=== PATIENT | female | born 1950 | race Caucasian/White ===

== ENCOUNTER → 2017-11-17 14:34 | Outpatient (CLI) | payer MEDICARE, BC, SELFPAY ==
--- NOTE | 2017-11-17 14:36 | XR_ITS ---
DEXA SCAN.-BONE DENSITY STUDY HIPS AND LUMBAR SPINE HISTORY: Postmenopausal female 67-year-old postmenopausal female. Height loss. Low calcium intake. Has an taking Premarin at some point.. TECHNIQUE: DEXA scan hip and lumbar spine The most complete data summary and color graphic presentation of the today's ( and any prior ) DEXA findings are available in PACS. Definition and treatment guidelines included. COMPARISON: September 2016 LUMBAR SPINE: L2 vertebral body demonstrates the lowest T score -2.1 with BMD0.945 g/cm sq = osteopenia Overall mean lumbar L1-L4 T score -1.7 with BMD0.974 g/cm sq =. Osteopenia 2017 DEXA comparison. Thus when comparing today's study to the prior exam there's been a scant 0.2% increasing mean bone density at the lumbar spine.... Which is less than the anticipated bone loss over each year. HIPS: Femoral neck density is best predictor of hip fracture risk . Both demonstrates the -2.1 T score below the with BMD0.933 g/cm sq . Average all regions yields today's with today's Hip Mean T score -1.5 with BMD0.821 g/cm sq . 2017 DEXA overall hip T score -1.7 with mean BMD0.798 g/cm sq Thus this reflects a 2.9% increasedin overall mean bone density at the hips in the interval. IMPRESSION------- 1. LUMBAR SPINE: \Overall Osteopenia at the lumbar spine. With overall T score = -1.7. Lowest density L2 vertebra with T score = -2.1 2. HIPS: Overall osteopenia at hips with overall T score -1.7 More pronounced osteopenia at both right and left femoral neck with a T score = -2.1 bilateral WHO criteria for post-menopausal, Women: Normal: T-score at or above -1 SD Osteopenia: T-score between -1 and -2.5 SD Osteoporosis: T-score at or below -2.5 SD
--- NOTE | 2017-11-17 14:36 | MM_ITS ---
MM Dig screening mamm BI w/CAD ORDERING PHYSICIAN : Iban Thompson MD PATIENT AGE: 67 years GENDER: Female HISTORY Has taken female hormones over the past year. No new complaints noncontributory family history. INDICATION: ITS.REASON: SCREENING XMG COMPARISON: September 1999 09 Sep 1999 August TECHNIQUE: Standard CC and MLO images were obtained. R2 CAD reviewed. FINDINGS: Lower density breast with generalized fatty replacement. Minimal residual fibroglandular elements most evident at the right breast anteriorly. No dominant mass nor suspicious calcifications either breast . Mild asymmetry is again seen but no new findings. RIGHT BREAST:We again see some minimal residual fibroglandular elements extending through the lateral retroareolar region. These features evident long-standing features seem to be slightly more evident on some images and others due to technique but I do not but is been any significant change overall. LEFT BREAST:Stable left breast follow-up in one year IMPRESSION: Stable mammogram no new areas of concern . Bilateral follow-up in one year recommended. BI-RADS Category: 1 Negative RECOMMENDED FOLLOW-UP: 1YR 1 YEAR FOLLOW-UP (A letter has been sent to the patient regarding results of the study.)
== END ==
PROVIDERS: Family Provider Family Medicine Addiction Medicine; PCP Obstetrics & Gynecology; Visit Provider Obstetrics & Gynecology
DX: Z12.31 Encounter for screening mammogram for malignant neoplasm of breast (principal); Z78.0 Asymptomatic menopausal state
CPT/HCPCS: 77067; 77080

== ENCOUNTER → 2018-11-20 09:24 | Outpatient (CLI) | payer MEDICARE, BC, SELFPAY ==
--- NOTE | 2018-11-20 09:37 | MM_ITS ---
MM Dig screening mamm BI w/CAD CAD Screening COMPARISON: Digital mammograms with CAD 11/17/2017 and 09/28/2016 INDICATION: There is no personal or family history of breast cancer TECHNIQUE: Standard CC and MLO images were obtained. R2 CAD reviewed. FINDINGS: The breasts are composed primarily of fat with minimal scattered fibroglandular densities throughout each breast. There are few benign-appearing calcifications in each breast. There is no suspicious lesion and there are no suspicious microcalcifications. IMPRESSION: Fibrofatty parenchyma with no suspicious lesion seen BI-RADS Category: 2 Benign Finding(s) RECOMMENDED FOLLOW-UP: 1YR - 1 YEAR FOLLOW-UP (A letter has been sent to the patient regarding results of the study.)
--- NOTE | 2018-11-20 09:37 | XR_ITS ---
XR DEXA axial skeleton HISTORY: ITS.REASON: SCREENING ORDERING PHYSICIAN: Iban Thompson MD PATIENT AGE: 68 years COMPARISON: 11/17/2017 FINDINGS: The BMD measured at the left femoral neck is 0.734 g/cm squared with a T score of -2.2. This is considered Osteopenic according to the World Health Organization criteria. Fracture risk is Moderate. Treatment is advised. The L1 L4 density has a T score of -1.2 has increased by 6.8%. The density is unchanged IMPRESSION: Osteopenia with moderate fracture risk. Treatment is advised. Suggest follow-up exam in 2 years
== END ==
PROVIDERS: Visit Provider Obstetrics & Gynecology
DX: Z12.31 Encounter for screening mammogram for malignant neoplasm of breast (principal); Z78.0 Asymptomatic menopausal state
CPT/HCPCS: 77067; 77080

== ENCOUNTER → 2019-11-23 07:47 | Outpatient (CLI) | payer MEDICARE, BC, SELFPAY ==
--- NOTE | 2019-11-23 07:48 | XR_ITS ---
PROCEDURE: XR DEXA AXIAL SKELETON CLINICAL HISTORY: Dexa Scan- Osteoporosis COMPARISON: DXA Exam from 11/20/2018 FINDINGS: The right hip BMD is 0.669 with a t-score of -1.6. The left hip BMD is 0.634 with a t-score of -1.9. The lumbar spine BMD is 0.824 with a t-score of -2. IMPRESSION: Osteopenia with moderate fracture risk. Treatment advised. Suggest follow-up exam in 1 year. Previously the lumbar spine T-score is -1.2, left femoral neck -2.2 and right femoral neck -1.5 Dictated by: Conrad Field MD 11/23/2019 10:33 Electronically signed by Conrad Field MD in [place] 11/23/2019 10:33
--- NOTE | 2019-11-23 07:48 | MM_ITS ---
PROCEDURE: MM DIG SCREENING MAMM BI W/CAD DIGITAL BREAST TOMOSYNTHESIS INCLUDED Patient Age:69Y CLINICAL INDICATION: Routine Screening Mammogram COMPARISON: [facility] DIG MAMM-SCREEN JASON W/CAD from 09/28/2016 [facility] MM Dig screening mamm BI w/CAD from 11/17/2017 DIG MAMM-SCREEN JASON from 11/20/2018 TECHNIQUE: Standard CC and MLO images were obtained. R2 CAD reviewed. Bilateral digital breast tomosynthesis included. FINDINGS: IMPRESSION: BI-RAD Category: FOLLOW-UP: (A letter has been sent to the patient regarding results of the study.) Dictated by: Dae Solo MD 11/24/2019 14:31 Electronically signed by Dae Solo MD in [place] 11/26/2019 14:29
== END ==
PROVIDERS: Visit Provider Obstetrics & Gynecology
DX: Z12.31 Encounter for screening mammogram for malignant neoplasm of breast (principal); M81.0 Age-related osteoporosis without current pathological fracture
CPT/HCPCS: 77063; 77067; 77080

== ENCOUNTER → 2020-09-11 08:11 | Outpatient (CLI) | payer MEDICARE, BC, SELFPAY ==
[2020-09-11 08:55] LABS: Basophils % 0.3 % (0.1-2.0); Eosinophils # 0.3 K/mm3 (0.0-0.4); Eosinophils % 3.4 % (0.1-12.0); Hematocrit 41.3 % (37.0-47.0); Hemoglobin 13.4 g/dL (12.2-16.2); Lymphocytes # 2.9 K/mm3 (0.7-4.5); Lymphocytes % 28.7 % (10-50); Mean Corpuscular HGB Conc 32.5 g/dL (31.8-35.4); Mean Corpuscular Hemoglobin 31.4 pg (27.0-31.2); Mean Corpuscular Volume 96.5 fl (81-99); Mean Platelet Volume 7.6 fl (7.4-10.4); Monocytes # 0.5 K/mm3 (0.1-1.0); Monocytes % 5.3 % (1.7-9.3); Neutrophils # 6.2 K/mm3 (1.8-7.8); Neutrophils % 62.2 % (37.0-80.0); Platelet Count 193 K/mm3 (142-424); Red Blood Count 4.28 M/mm3 (4.20-5.40); Red Cell Distribution Width 13.9 % (11.5-17.5); White Blood Count 9.9 K/mm3 (4.8-10.8)
[2020-09-11 09:07] LABS: Hemoglobin A1C 8.2 % (4.0-6.0)
[2020-09-11 09:19] LABS: Alanine Aminotransferase 54 U/L (12-78); Albumin Level 4.3 g/dl (3.5-5.0); Albumin/Globulin Ratio 1.7 (1.1-1.8); Alkaline Phosphatase 105 U/L (38-126); Anion Gap 8.3 mEq/L (5-15); Aspartate Amino Transferase 51 U/L (14-36); Bilirubin,Total 0.5 mg/dl (0.2-1.3); Blood Urea Nitrogen 32 mg/dl (7-17); Calcium 9.5 mg/dl (8.4-10.2); Carbon Dioxide 30 mmol/L (22.0-30.0); Chloride 104 mmol/L (98-107); Cholesterol 194 mg/dl (140-200); Estimated Glomerular Filt Rate 38 ml/min (>60); GFR (African American) 45 ML/MIN (>60); Globulin 2.5 g/dL (1.3-3.2); Glucose 207 mg/dl (74-100); HDL Cholesterol 97 mg/dl (40-60); Potassium 4.3 mmoL/L (3.5-5.1); Sodium 138 mmol/L (136-145); Total Protein,Serum 6.8 g/dl (6.3-8.2); Triglycerides 216 mg/dl (30-150); VLDL Cholesterol 43 mg/dL (0-40)
[2020-09-11 09:29] LABS: Direct LDL Cholesterol 60.56 mg/dL (100-129)
[2020-09-11 09:35] LABS: 25-OH Vitamin D, Total 23.9 ng/mL (30-100)
== END ==
PROVIDERS: Visit Provider Internal Medicine
DX: I10 Essential (primary) hypertension (principal); E78.5 Hyperlipidemia, unspecified; E55.9 Vitamin D deficiency, unspecified; E11.22 Type 2 diabetes mellitus with diabetic chronic kidney disease; Z79.4 Long term (current) use of insulin
CPT/HCPCS: 36415; 80053; 80061; 82306; 83036; 85025

== ENCOUNTER 2021-07-06 04:18 | Emergency (ER) | payer MEDICARE, BC, SELFPAY ==
[2021-07-06] VITALS (7 sets, daily range): BP systolic 109–139; BP diastolic 63–82; PULSE 99–121; RESP 16–20; TEMP 37.1; O2SAT 94–100; BMI 27.4
[2021-07-06 04:32] LABS: POC Glucose,Bedside 328 (70-110)
--- NOTE | 2021-07-06 04:35 | PC.NURSE ---
pt 277blood sugar per ems to their arrival pt is reading 328 on arrival to the ED
--- NOTE | 2021-07-06 04:36 | ECG_ITS ---
APPROVED REPORT Exam: Resting ECG HR:116 bpm ECG Measurements Heart Rate 116 AXES QRSd 91 QRS 23 QT 326 T 66 QTc 395 Conclusion ATRIAL FIBRILLATION WITH RAPID VENTRICULAR RESPONSE MINIMAL ST DEPRESSION [0.025+ mV ST DEPRESSION] ABNORMAL RHYTHM ECG UNCONFIRMED REPORT Electronically signed by : Juan Antonio North MD 07/07/2021 14:09:09
[2021-07-06 04:55] LABS: Basophils % 0.4 % (0.1-2.0); Eosinophils # 0.1 K/mm3 (0.0-0.4); Eosinophils % 1.1 % (0.1-12.0); Hematocrit 45.1 % (37.0-47.0); Hemoglobin 14.5 g/dL (12.2-16.2); Lymphocytes # 0.7 K/mm3 (0.7-4.5); Lymphocytes % 6.5 % (10-50); Mean Corpuscular HGB Conc 32.1 g/dL (31.8-35.4); Mean Corpuscular Hemoglobin 32.5 pg (27.0-31.2); Mean Corpuscular Volume 101.4 fl (81-99); Mean Platelet Volume 9.2 fl (7.4-10.4); Microscopic, Urine URINE MICROSCOPIC (MICROSCOPIC); Monocytes # 0.4 K/mm3 (0.1-1.0); Monocytes % 3.7 % (1.7-9.3); Neutrophils # 9.1 K/mm3 (1.8-7.8); Neutrophils % 88.4 % (37.0-80.0); Platelet Count 213 K/mm3 (142-424); Red Blood Count 4.45 M/mm3 (4.20-5.40); Red Cell Distribution Width 13.5 % (11.5-17.5); White Blood Count 10.3 K/mm3 (4.8-10.8)
[2021-07-06 04:58] LABS: Appearance,Urine CLEAR (Clear); Bilirubin,Urine Negative (Negative); Blood, Urine TRACE-I (Negative); Color,Urine YELLOW (Yellow); Glucose,Urine (UA) 3+ (Negative); Ketones,Urine TRACE (Negative); Leukocyte Esterase,Urine Negative (Negative); Nitrate,Urine Negative (Negative); Protein,Urine Negative (Negative); Urobilinogen,Urine 0.2 EU/dl (0.2)
[2021-07-06 04:59] LABS: Chloride 95 mmol/L (98-107); Potassium 3.7 mmoL/L (3.5-5.1); Sodium 131 mmol/L (136-145)
[2021-07-06 05:01] LABS: Amorphous Sediment,Urine 1+ /lpf; WBC,Urine Occasional #/hpf (0-3)
[2021-07-06 05:02] LABS: Alanine Aminotransferase 19 U/L (12-78); Albumin Level 4.7 g/dl (3.5-5.0); Albumin/Globulin Ratio 1.6 (1.1-1.8); Alkaline Phosphatase 78 U/L (38-126); Amylase 84 U/L (30-110); Anion Gap 13.7 mEq/L (5-15); Aspartate Amino Transferase 32 U/L (14-36); Bilirubin,Total 0.8 mg/dl (0.2-1.3); Blood Urea Nitrogen 19 mg/dl (7-17); Calcium 9.5 mg/dl (8.4-10.2); Carbon Dioxide 26 mmol/L (22.0-30.0); Creatinine Clearance Estimated 54 mL/min (50-200); Estimated Glomerular Filt Rate 49 ml/min (>60); GFR (African American) 60 ML/MIN (>60); Globulin 2.9 g/dL (1.3-3.2); Glucose 243 mg/dl (74-100); Lipase 64 U/L (23-300); MANUAL DIFFERENTIAL MANUAL DIFFERENTIAL (MANUAL DIFF); Total Protein,Serum 7.6 g/dl (6.3-8.2)
[2021-07-06 05:03] LABS: Lactic Acid 1.6 mmol/L (0.7-2.1)
[2021-07-06 05:08] LABS: Coronavirus 19, PCR Not Detected (NotDetected); Influenza B, PCR Not Detected (NotDetected)
[2021-07-06 05:08] LABS: C-Reactive Protein 1.4 mg/L (0-4)
[2021-07-06 05:26] LABS: Procalcitonin < 0.030 ng/mL (0.0-2.0)
[2021-07-06 05:30] LABS: Erythrocyte Sedimentation Rate 15 mm/hr (0-30)
[2021-07-06 05:30] LABS: Influenza A, PCR Detected (NotDetected)
[2021-07-06 05:44] LABS: Lymphocytes % 8 % (10-50); Macrocytosis 2+; Neutrophils % 86 % (42-76); Platelet Estimate Normal; Total Cells Counted 100
[2021-07-06 05:45] LABS: Troponin I < 0.01 ng/ml (0.00-0.034)
--- NOTE | 2021-07-06 05:46 | PC.NURSE ---
RN at bedside speaking with pt about medications
--- NOTE | 2021-07-06 05:51 | HMH.EDSYNC ---
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 Diabetes mellitus complication status: with other specified complication Qualified Code(s): E11.69 - Type 2 diabetes mellitus with other specified complication Disposition: Home, Self-Care Condition on Discharge: Good Instructions: DI for H1N1 Influenza -- Adult Additional Instructions: fluids and call pcp for follow up Prescriptions: Oseltamivir Phosphate [Tamiflu 75mg Capsule] 75 mg PO BID #10 cap Transmission Status: Received by [id number] Referrals: Provider,Referral, [Primary Care Provider] - - Critical Care Critical Care Time: No Attestation: On 07/06/21, the high probability of a clinically significant, sudden or life threatening deterioration of the following system(s) required my full and direct attention, intervention and personal management. The time I documented below is in addition to time spent performing reported procedures but includes the following listed in this critical care notation. Medical Decision Making - Medical Records Medical records reviewed: Yes: I reviewed the patient's medical records. - Filemon Inquiry Pt receiving controlled substance: No Vital Signs: 07/06/21 04:17 07/06/21 04:31 07/06/21 05:00 Temperature 98.8 F Temperature Source Oral Pulse Rate 119 H 112 H Respiratory Rate 16 Blood Pressure 139/77 119/71 02 Sat by Pulse Oximetry 100 96 95 Oxygen Delivery Method Room Air Room Air Room Air 07/06/21 05:30 07/06/21 06:00 07/06/21 06:30 Temperature Temperature Source Pulse Rate 111 H 121 H 116 H Respiratory Rate Blood Pressure 109/72 L 124/82 118/63 02 Sat by Pulse Oximetry 95 95 94 L Oxygen Delivery Method Room Air Room Air Room Air - Lab Data Lab results reviewed: Yes: I reviewed the patient's lab results. Lab Results 07/06/21 04:22: POC Glucose 328 H* 07/06/21 04:23: Urine Color Yellow, Urine Appearance Clear, Urine pH 6.0, Ur Specific [place] 1.020, Urine Protein Negative, Urine Glucose (UA) 3+, Urine Ketones Trace, Urine Blood Trace-i, Urine Nitrate Negative, Urine Bilirubin Negative, Urine Urobilinogen 0.2, Ur Leukocyte Esterase Negative, Urine RBC 3-5, Urine WBC Occasional, Amorphous Sediment 1+ 07/06/21 04:23: WBC 10.3, RBC 4.45, Hgb 14.5, Hct 45.1, MCV 101.4 H, MCH 32.5 H, MCHC 32.1, RDW 13.5, Plt Count 213, MPV 9.2, Neut % (Auto) 88.4 H, Lymph % (Auto) 6.5 L, [place] % (Auto) 3.7, Eos % (Auto) 1.1, Baso % (Auto) 0.4, Neut # (Auto) 9.1 H, Lymph # (Auto) 0.7, [place] # (Auto) 0.4, Eos # (Auto) 0.1, Baso # (Auto) 0.0, Total Counted 100, Neutrophils % (Manual) 86 H, Band Neutrophils % 6.0, Lymphocytes % (Manual) 8 L, Platelet Estimate Normal, Macrocytosis 2+ 07/06/21 04:23: Sodium 131 L, Potassium 3.7, Chloride 95 L, Carbon Dioxide 26, Anion Gap 13.7, BUN 19 H, Creatinine 1.10 H, Estimated Creat Clear 54, Estimated GFR 49 L, Est GFR ( Amer) 60, Glucose 243 H, Calcium 9.5, Total Bilirubin 0.8, AST 32, ALT 19, Alkaline Phosphatase 78, C-Reactive Protein 1.4, Total Protein 7.6, Albumin 4.7, Globulin 2.9, Albumin/Globulin Ratio 1.6, Amylase 84 07/06/21 04:23: Lactate 1.6 07/06/21 04:23: ESR 15 07/06/21 04:23: Lipase 64, Procalcitonin < 0.030 07/06/21 04:23: Troponin I < 0.01 07/06/21 04:52: SARS-CoV-2 (PCR) Not detected, Influenza A Untype (PCR) Detected A, Influenza Type B (PCR) Not detected 07/06/21 05:45: POC Glucose 253 H 07/06/21 08:07: Troponin I < 0.01 Result diagrams: 07/06/21 04:23 07/06/21 04:23 Orders (Tests/Meds): ED MEDICATIONS Discontinued Medications Generic Name Dose Route Start Last Admin Trade Name Freq PRN Reason Stop Dose Admin Sodium Chloride 1,000 mls @ 999 mls/hr 07/06/21 06:00 07/06/21 05:56 Sod Chlor 0.9% 1000ml Bag IV 07/06/21 07:00 999 mls/hr .Q1H1M VILMA Admi
[2021-07-06 05:52] LABS: POC Glucose,Bedside 253 (70-110)
--- NOTE | 2021-07-06 05:54 | PC.NURSE ---
pt blood sugar 253
--- NOTE | 2021-07-06 08:07 | PC.NURSE ---
2nd troponin sent drawn and sent to lab. Patient has no needs at this time, family at BS
[2021-07-06 08:56] LABS: Troponin I < 0.01 ng/ml (0.00-0.034)
--- NOTE | 2021-07-06 09:33 | PC.NURSE ---
ED MD at for update on POC
== END 2021-07-06 09:42 | disposition home or self-care (01) ==
PROVIDERS: Emergency Provider Emergency Medicine
DX: J10.1 Influenza due to other identified influenza virus with other respiratory manifestations (principal); E11.65 Type 2 diabetes mellitus with hyperglycemia; N28.9 Disorder of kidney and ureter, unspecified; I10 Essential (primary) hypertension; F33.1 Major depressive disorder, recurrent, moderate; I50.9 Heart failure, unspecified; Z79.899 Other long term (current) drug therapy; M81.0 Age-related osteoporosis without current pathological fracture
CPT/HCPCS: 80053; 81001; 82150; 82962; 83605; 83690; 84145; 84484; 85007; 85025; 85651; 86140; 93005; 96365; 99284; C9803; U0003; U0005

== ENCOUNTER 2022-05-29 18:11 | Emergency (ER) | payer MEDICARE, BC, SELFPAY ==
[2022-05-29 18:11] VITALS: BP 143/76; PULSE 84; RESP 17; TEMP 36.5; O2SAT 95; BMI 23.9
--- NOTE | 2022-05-29 18:12 | CT_ITS ---
PROCEDURE INFORMATION: Exam: CT Cervical Spine Without Contrast Exam date and time: 05/29/2022 6:24 PM Age: 71 years old Clinical indication: Injury or trauma; Fall; Laceration TECHNIQUE: Imaging protocol: Computed tomography of the cervical spine without contrast. Radiation optimization: All CT scans at this facility use at least one of these dose optimization techniques: automated exposure control; mA and/or kV adjustment per patient size (includes targeted exams where dose is matched to clinical indication); or iterative reconstruction. Other protocol: This patient has received [address] and 0 known cardiac nuclear medicine studies in the 12 months prior to the current study. COMPARISON: CT CERVICAL SPINE WO CON 06/07/2019 1:34 AM FINDINGS: Bones/joints: Vertebral body height and AP alignment is preserved. Mild degenerative change about the dens. Low-level facet joint degenerative change. No acute cervical spine fracture. Nonspecific sclerosis involving the medial aspect of the right clavicle. Lungs: Lung apices are normal. Pleural spaces: No visible pneumothorax. Vasculature: Vascular calcification. Soft tissues: Unremarkable. IMPRESSION: No acute cervical spine fracture.
--- NOTE | 2022-05-29 18:12 | CT_ITS ---
PROCEDURE INFORMATION: Exam: CT Head Without Contrast Exam date and time: 05/29/2022 6:22 PM Age: 71 years old Clinical indication: Injury or trauma; Fall; Blunt trauma (contusions or hematomas); Consciousness not specified TECHNIQUE: Imaging protocol: Computed tomography of the head without contrast. Radiation optimization: All CT scans at this facility use at least one of these dose optimization techniques: automated exposure control; mA and/or kV adjustment per patient size (includes targeted exams where dose is matched to clinical indication); or iterative reconstruction. Other protocol: This patient has received [address] and 0 known cardiac nuclear medicine studies in the 12 months prior to the current study. COMPARISON: CT HEAD/BRAIN WO CON 06/07/2019 1:30 AM FINDINGS: Brain: Age-related volume loss. No acute intracranial hemorrhage. No midline shift or intracranial mass effect. Cerebral ventricles: No hydrocephalus. Paranasal sinuses: Visualized sinuses are unremarkable. No fluid levels. Mastoid air cells: Visualized mastoid air cells are well aerated. Bones/joints: Hyperostosis frontalis interna. No acute calvarial fracture. Soft tissues: Left anterolateral facial/scalp soft tissue injury. IMPRESSION: No acute intracranial abnormality.
--- NOTE | 2022-05-29 18:19 | PC.NURSE ---
pt to radiology
--- NOTE | 2022-05-29 18:20 | HMH.EDGENADL ---
Discharge Plan Disposition Patient Disposition: Home, Self-Care Condition: Good Prescriptions Prescriptions: New cephalexin 500 mg capsule 500 mg PO Q6H Qty: 28 0RF No Action omeprazole 20 mg capsule,delayed release(DR/EC) 20 mg PO DAILY insulin glargine [Lantus U-100 Insulin] 100 unit/mL solution 17 unit SUB-Q QHS triamterene-hydrochlorothiazid 37.5-25 mg capsule 1 cap PO QAM Rx Instructions: furosemide 40 mg tablet 40 mg PO DAILY diazepam 5 mg tablet 5 mg PO BID promethazine 25 mg tablet 25 mg PO Q6H PRN (Reason: Nausea) simvastatin [Zocor] 40 mg tablet 40 mg PO QPM losartan [Cozaar] 100 mg tablet 100 mg PO DAILY ranitidine HCl [Zantac] 300 mg tablet 300 mg PO BID hydrocodone-acetaminophen 7.5-325 mg tablet 1 tab PO Q4H PRN (Reason: PAIN) amlodipine 5 mg tablet 10 mg PO DAILY aspirin 81 mg tablet,delayed release (DR/EC) 81 mg PO DAILY insulin glargine 100 unit/mL (3 mL) insulin pen 15 unit SQ QPM cholecalciferol (vitamin D3) 75 mcg (3,000 unit) tablet 75 mcg PO DAILY esomeprazole magnesium 20 mg capsule,delayed release(DR/EC) 20 mg PO DAILY glimepiride 2 mg tablet PO DAILY (DME) pen needle, diabetic 31 gauge x 5/16 needle See Rx Instructions .ROUTE .MEDSUPPLY Qty: 1,200 Rx Instructions: As directed metoprolol succinate 25 mg tablet extended release 24 hr PO oxybutynin chloride 5 mg tablet 5 mg PO TID 30 Days Qty: 90 6RF estradiol 1 mg tablet 1 mg PO DAILY Qty: 30 11RF Rx Instructions: this a decrease in dosage from 2mg to 1mg alendronate 70 mg tablet See Rx Instructions .ROUTE .COMPLEX Qty: 7 0RF Dose Instruction: TAKE 1 TABLET ONCE A WEEKIN THE MORNING AT LEAST 30 MINUTES BEFORE FOOD ORBEVERAGE FOR OSTEOPOROSIS Rx Instructions: TAKE 1 TABLET ONCE A WEEKIN THE MORNING AT LEAST 30 MINUTES BEFORE FOOD ORBEVERAGE FOR OSTEOPOROSIS dapagliflozin 5 MG tablet 5 mg PO ONCE Label Comments: TAKE 1 TABLET BY MOUTH EVERY DAY ezetimibe-rosuvastatin 1 EACH tablet 1 each PO ONCE oseltamivir 75 MG capsule 75 mg PO BID Qty: 10 0RF Referrals Follow up/Referrals: Provider,Referral, MD [Referring] - See instructions Activity Restrictions/Add. Instructions Additional Instructions/Restrictions: Tylenol or ibuprofen as needed for pain. Sleep with head elevated on 2-3 pillows for 3 nights to help reduce swelling. Additional instructions for FACIAL LACERATION: Clean the wound daily with soap and water. You may shower. Apply a thin film of antibiotic ointment such as neosporin or triple antibiotic after showering. Avoid submerging the wound, no swimming. See your primary care physician or return to the [facility] in 7 days for suture removal. The [facility] is open 8 AM to 8 PM, 7 days a week. Return if any signs of infection including increasing pain, pus drainage, swelling, redness, red streaks, or fever. Additional instructions for HEAD INJURY: See your physician as soon as possible for further evaluation. Return immediately if severe headache, vomiting, problems with vision or speech, numbness or weakness of the extremities, or severe neck pain. Clinical Impressions Clinical Impression: Complex laceration of forehead Instructions Patient Instructions: DI for Laceration Repair, DI for Closed Head Injury Discharge ED Provider: Narendra Woods General Adult HPI General Chief complaint: Wound/Laceration Stated complaint: Laceration to scalp Time Seen by Provider: 05/29/22 18:15 History of Present Illness HPI narrative: Patient states she was walking in the yard, tripped over a scott and landed on the scott striking her head and face, sustaining a laceration to her left forehead and scalp. Denies loss of consciousness. Denies headache. Denies neck pain or injury.
--- NOTE | 2022-05-29 18:21 | PC.NURSE ---
Patient brought back 1810, physician notified of patient injury. Provider at bedside at 1819. CT notified at that time of STAT studies
[2022-05-29 19:49] VITALS: BP 138/69; PULSE 69; RESP 17; TEMP 36.7; O2SAT 94
== END 2022-05-29 19:55 | disposition home or self-care (01) ==
PROVIDERS: Emergency Provider Emergency Medicine; PCP Internal Medicine
DX: S01.01XA Laceration without foreign body of scalp, initial encounter (principal); S01.81XA Laceration without foreign body of other part of head, initial encounter; W01.0XXA Fall on same level from slipping, tripping and stumbling without subsequent striking against object, initial encounter; F17.210 Nicotine dependence, cigarettes, uncomplicated
CPT/HCPCS: 12005; 70450; 72125; 99285

== ENCOUNTER 2022-06-05 13:19 | Emergency (ER) | payer MEDICARE, BC, SELFPAY ==
[2022-06-05 14:00] VITALS: BP 117/67; PULSE 68; RESP 18; TEMP 36.6; O2SAT 97; BMI 24.3
[2022-06-05 14:12] VITALS: BP 117/67; PULSE 68; RESP 18; TEMP 36.6; O2SAT 97
== END 2022-06-05 14:15 | disposition home or self-care (01) ==
LOC: UTC 13:21
PROVIDERS: Emergency Provider Nurse Practitioner Family; PCP Internal Medicine
DX: Z48.02 Encounter for removal of sutures (principal)

== ENCOUNTER 2022-08-10 17:53 | Emergency (ER) | payer MEDICARE, BC, SELFPAY ==
[2022-08-10 17:53] VITALS: BP 111/66; PULSE 75; RESP 17; TEMP 37.2; O2SAT 95; BMI 23.0
[2022-08-10 17:54] VITALS: BP 111/66; PULSE 84; O2SAT 96
[2022-08-10 18:08] VITALS: BMI 23.0
--- NOTE | 2022-08-10 18:14 | CT_ITS ---
PROCEDURE INFORMATION: Exam: CT Head Without Contrast Exam date and time: 08/10/2022 6:48 PM Age: 71 years old Clinical indication: Pain; Headache not specified; Patient HX: Patient fell on ice back in March and had 42 stitches in her head at another hospital. Has been having headaches since that time. ; Additional info: Abnormal headaches TECHNIQUE: Imaging protocol: Computed tomography of the head without contrast. Radiation optimization: All CT scans at this facility use at least one of these dose optimization techniques: automated exposure control; mA and/or kV adjustment per patient size (includes targeted exams where dose is matched to clinical indication); or iterative reconstruction. REPORTING DATA: Count of CT and Cardiac NM exams in prior 12 months: This patient has received 2 known [address]s and 0 known cardiac nuclear medicine studies in the 12 months prior to the current study. COMPARISON: CT HEAD/BRAIN WO CON 05/29/2022 6:22 PM FINDINGS: Brain: Periventricular and subcortical white matter areas of hypoattenuation, likely chronic small vessel ischemic change, demyelination, or gliosis. There is parenchymal atrophy. No intracranial mass, acute hemorrhage, or acute infarction. Cerebral ventricles: No ventriculomegaly. Paranasal sinuses: Visualized sinuses are unremarkable. No fluid levels. Mastoid air cells: Normal as visualized. Bones/joints: Normal. Soft tissues: Unremarkable. IMPRESSION: No acute intracranial abnormality.
[2022-08-10 18:24] VITALS: BP 140/78; PULSE 72; O2SAT 98
[2022-08-10 18:26] LABS: Basophils # 0.1 K/mm3 (0-0.2); Basophils % 0.6 % (0.1-2.0); Eosinophils # 0.3 K/mm3 (0.0-0.4); Eosinophils % 3.2 % (0.1-12.0); Hematocrit 46.3 % (37.0-47.0); Lymphocytes # 2.8 K/mm3 (0.7-4.5); Lymphocytes % 30.7 % (10-50); Mean Corpuscular HGB Conc 32.5 g/dL (31.8-35.4); Mean Corpuscular Hemoglobin 31.4 pg (27.0-31.2); Mean Corpuscular Volume 96.7 fl (81-99); Mean Platelet Volume 8.2 fl (7.4-10.4); Monocytes # 0.5 K/mm3 (0.1-1.0); Monocytes % 5.3 % (1.7-9.3); Neutrophils # 5.4 K/mm3 (1.8-7.8); Neutrophils % 60.2 % (37.0-80.0); Platelet Count 244 K/mm3 (142-424); Red Blood Count 4.79 M/mm3 (4.20-5.40); Red Cell Distribution Width 13.6 % (11.5-17.5)
--- NOTE | 2022-08-10 18:27 | HMH.EDANX ---
Discharge Plan Disposition Patient Disposition: Home, Self-Care Chief Complaint: Anxiety Prescriptions Prescriptions: No Action omeprazole 20 mg capsule,delayed release(DR/EC) 20 mg PO DAILY insulin glargine [Lantus U-100 Insulin] 100 unit/mL solution 17 unit SUB-Q QHS triamterene-hydrochlorothiazid 37.5-25 mg capsule 1 cap PO QAM Rx Instructions: furosemide 40 mg tablet 40 mg PO DAILY diazepam 5 mg tablet 5 mg PO BID promethazine 25 mg tablet 25 mg PO Q6H PRN (Reason: Nausea) simvastatin [Zocor] 40 mg tablet 40 mg PO QPM losartan [Cozaar] 100 mg tablet 100 mg PO DAILY ranitidine HCl [Zantac] 300 mg tablet 300 mg PO BID hydrocodone-acetaminophen 7.5-325 mg tablet 1 tab PO Q4H PRN (Reason: PAIN) amlodipine 5 mg tablet 10 mg PO DAILY aspirin 81 mg tablet,delayed release (DR/EC) 81 mg PO DAILY insulin glargine 100 unit/mL (3 mL) insulin pen 15 unit SQ QPM cholecalciferol (vitamin D3) 75 mcg (3,000 unit) tablet 75 mcg PO DAILY esomeprazole magnesium 20 mg capsule,delayed release(DR/EC) 20 mg PO DAILY glimepiride 2 mg tablet PO DAILY (DME) pen needle, diabetic 31 gauge x 5/16 needle See Rx Instructions .ROUTE .MEDSUPPLY Qty: 1,200 Rx Instructions: As directed metoprolol succinate 25 mg tablet extended release 24 hr PO oxybutynin chloride 5 mg tablet 5 mg PO TID 30 Days Qty: 90 6RF estradiol 1 mg tablet 1 mg PO DAILY Qty: 30 11RF Rx Instructions: this a decrease in dosage from 2mg to 1mg alendronate 70 mg tablet See Rx Instructions .ROUTE .COMPLEX Qty: 7 0RF Dose Instruction: TAKE 1 TABLET ONCE A WEEKIN THE MORNING AT LEAST 30 MINUTES BEFORE FOOD ORBEVERAGE FOR OSTEOPOROSIS Rx Instructions: TAKE 1 TABLET ONCE A WEEKIN THE MORNING AT LEAST 30 MINUTES BEFORE FOOD ORBEVERAGE FOR OSTEOPOROSIS dapagliflozin 5 MG tablet 5 mg PO ONCE Label Comments: TAKE 1 TABLET BY MOUTH EVERY DAY ezetimibe-rosuvastatin 1 EACH tablet 1 each PO ONCE oseltamivir 75 MG capsule 75 mg PO BID Qty: 10 0RF cephalexin 500 mg capsule 500 mg PO Q6H Qty: 28 0RF Referrals Follow up/Referrals: Alexus Stafford MD [Primary Care Provider] - See instructions Clinical Impressions Clinical Impression: Anxiety, Diabetes, Elevated blood alcohol level Instructions Patient Instructions: Anxiety Disorders Discharge ED Provider: Perry (ED)[facility] Chief Complaint: Anxiety Stated Complaint: anxiety Time Seen by Provider: 08/10/22 18:27 Mode of Arrival: Ambulatory Source of Information: Patient, Relative and Medical Record Limitations: No Limitations Description of Symptoms (Recalled from ER Triage Doc. by RN): pt to the ED after a panic attack at home. pt reports she had a recent in the family and her left her for a new girl friend. pt complains of being emotionally distraught the past few days. pt denies any pain at this time. pt does report daily marajuana use. History of Present Illness HPI narrative: pt with reported anxiety sec to multiple issues and also has blacking out spells and has hx of head trauma in past with occ doshi - complaint: anxiety Onset (ago): day(s) Severity: moderate Quality: intermittent Place: home History of similar episodes: Yes Provoking factors: emotional stress and recent /illness of family member Associated symptoms: denies other symptoms Related Data Home Medications Medication Instructions Recorded Confirmed diazepam 5 mg tablet 5 mg PO BID NERVES 08/29/17 06/07/19 furosemide 40 mg tablet 40 mg PO DAILY DIURETIC 08/29/17 07/06/21 hydrocodone 7.5 mg-acetaminophen 1 tab PO Q4H PRN PAIN 08/29/17 06/07/19 325 mg tablet insulin glargine 100 unit/mL 17 unit SUB-Q QHS DM 08/29/17 06/07/19 subcutaneous solution (Lantus U-100 Insulin) losartan 10
[2022-08-10 18:29] LABS: Ethyl Alcohol 216 mg/dl (0-10)
[2022-08-10 18:30] LABS: Alanine Aminotransferase 19 U/L (12-78); Albumin Level 4.9 g/dl (3.5-5.0); Albumin/Globulin Ratio 1.5 (1.1-1.8); Alkaline Phosphatase 65 U/L (38-126); Anion Gap 19.5 mEq/L (5-15); Aspartate Amino Transferase 31 U/L (14-36); Bilirubin,Total 0.4 mg/dl (0.2-1.3); Blood Urea Nitrogen 20 mg/dl (7-17); Calcium 9.8 mg/dl (8.4-10.2); Carbon Dioxide 23 mmol/L (22.0-30.0); Chloride 100 mmol/L (98-107); Creatinine Clearance Estimated 45 mL/min (50-200); Estimated Glomerular Filt Rate 49 ml/min (>60); GFR (African American) 60 ML/MIN (>60); Globulin 3.2 g/dL (1.3-3.2); Glucose 290 mg/dl (74-100); Potassium 4.5 mmoL/L (3.5-5.1); Sodium 138 mmol/L (136-145); Total Protein,Serum 8.1 g/dl (6.3-8.2)
[2022-08-10 18:33] LABS: Acetaminophen < 10 ug/ml (10-30); Salicylate < 1.0 mg/dL (2.0-20.0)
[2022-08-10 18:42] LABS: Barbiturates Screen,Urine Negative ng/ml (<200)
[2022-08-10 18:43] LABS: Benzodiazepines Screen,Urine Negative ng/ml (<200)
[2022-08-10 18:44] LABS: Amphetamine/Metha Screen,Urine Negative ng/ml (<1000); Methadone Screen,Urine Negative ng/ml (<300)
[2022-08-10 18:45] LABS: Cannabinoid Screen,Urine Positive ng/ml (<50)
[2022-08-10 18:46] LABS: Cocaine Screen,Urine Negative ng/ml (<300); Opiate Screen,Urine Negative ng/ml (<300)
[2022-08-10 18:47] LABS: Phencyclidine Screen,Urine Negative ng/ml (<25)
[2022-08-10 19:57] VITALS: BP 103/62; PULSE 72; RESP 19; TEMP 36.7; O2SAT 98
--- NOTE | 2022-08-11 10:10 | ECG_ITS ---
APPROVED REPORT Exam: Resting ECG HR:71 bpm ECG Measurements Heart Rate 71 AXES MD 177 P 79 QRSd 95 QRS 34 QT 387 T 61 QTc 409 Conclusion SINUS RHYTHM NORMAL ECG UNCONFIRMED REPORT Electronically signed by : Juan Antonio North MD 08/13/2022 14:32:08
== END 2022-08-10 20:00 | disposition home or self-care (01) ==
PROVIDERS: Emergency Provider Emergency Medicine; PCP Internal Medicine
DX: F41.0 Panic disorder [episodic paroxysmal anxiety] (principal); F17.200 Nicotine dependence, unspecified, uncomplicated
CPT/HCPCS: 70450; 80053; 80305; 80329; 83036; 85025; 93005; 96360; 96361; 99284; 99285

== ENCOUNTER 2023-08-24 20:33 | Emergency (ER) | payer MEDICARE, BC, SELFPAY ==
[2023-08-24 20:34] VITALS: BP 112/66; PULSE 91; RESP 20; TEMP 36.6; O2SAT 95; BMI 25.7
--- NOTE | 2023-08-24 20:48 | ED_ITS ---
Discharge Plan Disposition Patient Disposition: Home, Self-Care Condition: Fair Prescriptions Prescriptions: No Action omeprazole 20 mg capsule,delayed release(DR/EC) 20 mg PO DAILY insulin glargine [Lantus U-100 Insulin] 100 unit/mL solution 17 unit SUB-Q QHS triamterene-hydrochlorothiazid 37.5-25 mg capsule 1 cap PO QAM Rx Instructions: furosemide 40 mg tablet 40 mg PO DAILY diazepam 5 mg tablet 5 mg PO BID promethazine 25 mg tablet 25 mg PO Q6H PRN (Reason: Nausea) simvastatin [Zocor] 40 mg tablet 40 mg PO QPM losartan [Cozaar] 100 mg tablet 100 mg PO DAILY ranitidine HCl [Zantac] 300 mg tablet 300 mg PO BID hydrocodone-acetaminophen 7.5-325 mg tablet 1 tab PO Q4H PRN (Reason: PAIN) amlodipine 5 mg tablet 10 mg PO DAILY aspirin 81 mg tablet,delayed release (DR/EC) 81 mg PO DAILY insulin glargine 100 unit/mL (3 mL) insulin pen 15 unit SQ QPM cholecalciferol (vitamin D3) 75 mcg (3,000 unit) tablet 75 mcg PO DAILY esomeprazole magnesium 20 mg capsule,delayed release(DR/EC) 20 mg PO DAILY glimepiride 2 mg tablet PO DAILY (DME) pen needle, diabetic 31 gauge x 5/16 needle See Rx Instructions .ROUTE .MEDSUPPLY Qty: 1,200 Rx Instructions: As directed metoprolol succinate 25 mg tablet extended release 24 hr PO oxybutynin chloride 5 mg tablet 5 mg PO TID 30 Days Qty: 90 6RF estradiol 1 mg tablet 1 mg PO DAILY Qty: 30 11RF Rx Instructions: this a decrease in dosage from 2mg to 1mg alendronate 70 mg tablet See Rx Instructions .ROUTE .COMPLEX Qty: 7 0RF Dose Instruction: TAKE 1 TABLET ONCE A WEEKIN THE MORNING AT LEAST 30 MINUTES BEFORE FOOD ORBEVERAGE FOR OSTEOPOROSIS Rx Instructions: TAKE 1 TABLET ONCE A WEEKIN THE MORNING AT LEAST 30 MINUTES BEFORE FOOD ORBEVERAGE FOR OSTEOPOROSIS dapagliflozin propanediol 5 MG tablet 5 mg PO ONCE Patient Comments: TAKE 1 TABLET BY MOUTH EVERY DAY ezetimibe-rosuvastatin 1 EACH tablet 1 each PO ONCE oseltamivir 75 MG capsule 75 mg PO BID Qty: 10 0RF cephalexin 500 mg capsule 500 mg PO Q6H Qty: 28 0RF Referrals Follow up/Referrals: Provider,Referral, [Primary Care Provider] - See instructions Activity Restrictions/Add. Instructions Additional Instructions/Restrictions: Please wear your c-collar at all times. The [facility] Department of neurosurgery will contact you to arrange a follow-up appointment. Please return to the emergency department for any worsening signs and symptoms including numbness tingling loss of sensation or motor. Follow-up with your PCP in 1 week for evaluation of your laceration or return to the ER. Clinical Impressions Clinical Impression: Laceration, Fall Fracture of occipital condyle Qualifiers: Encounter type: initial encounter Fracture type: closed Laterality: left Q ualified Code(s): S02.113A - Unspecified occipital condyle fracture, initial encounter for closed fracture Discharge ED Provider: Trae Plaza General Adult HPI <KELY Bradley - Last Filed: 08/24/23 23:32> General Chief complaint: Fall Stated complaint: AO fall 08/23, facial lac Time Seen by Provider: 08/24/23 20:39 History of Present Illness HPI narrative: Patient presents for evaluation after a fall. Patient has been drinking and tripped falling face first into the base of a door frame. Patient herself is a poor historian and GCS currently is 14. Patient does not know whether or not she lost consciousness. It was a witnessed fall by a relative who states that she fell face forward into the base of a door frame. Patient has a laceration below the right orbit and a significant hematoma on forehead. She denies chest pain shortness of breath fever chills hemoptysis hematochezia melena nausea vomit diarrhea. Related Data Home Medications Medication Instructions Recorded Confirmed diazepam 5 mg tablet 5 mg PO BID NERVES 08/29/17 06/07/19 furosemide 40 mg tablet 40 mg PO DAILY DIURETIC 08/29/17 07/06/21 hydrocodone 7.5 mg-acetaminophen 1 tab PO Q4H PRN PAIN 08/29/17 06/07/19 325 mg tablet insulin glargine 100 unit/mL 17 unit SUB-Q QHS DM 08/29/17 06/07/19 subcutaneous solution (Lantus U-100 Insulin) losartan 100 mg tablet (Cozaar) 100 mg PO DAILY HTN 08/29/17 07/06/21 omeprazole 20 mg capsule,delayed 20 mg PO DAILY STOMACH 08/29/17 06/07/19 release promethazine 25 mg tablet 25 mg PO Q6H PRN Nausea 08/29/17 06/07/19 ranitidine HCl 300 mg tablet 300 mg PO BID STOMACH 08/29/17 06/07/19 (Zantac) simvastatin 40 mg tablet (Zocor) 40 mg PO QPM CHOELSTEROL 08/29/17 06/07/19 triamterene 37.5 1 cap PO QAM BP 08/29/17 06/07/19 mg-hydrochlorothiazide 25 mg capsule amlodipine 5 mg tablet 10 mg PO DAILY Hypertension 10/01/19 07/06/21 aspirin 81 mg tablet,delayed 81 mg PO DAILY heart health 10/01/19 07/06/21 release cholecalciferol (vitamin D3) 75 75 mcg PO DAILY 10/01/19 mcg (3,000 unit) tablet esomeprazole magnesium 20 mg 20 mg PO DAILY Indigestion 10/01/19 07/06/21 capsule,delayed release glimepiride 2 mg tablet mg PO DAILY 10/01/19 insulin glargine 100 unit/mL (3 15 unit SQ QPM 10/01/19 mL) subcutaneous pen metoprolol succinate 25 mg PO 10/01/19 tablet,extended release 24 hr pen needle, diabetic 31 gauge x #1,200 ea 10/01/1909/07 dapagliflozin propanediol 5 mg 5 mg PO ONCE blood sugar control 07/06/21 07/06/21 tablet ezetimibe 10 mg-rosuvastatin 10 mg 1 each PO ONCE Supplement 07/06/21 07/06/21 tablet Previous Rx's Medication Instructions Recorded oxybutynin chloride 5 mg tablet 5 mg PO TID UNK 30 days #90 tabs 06/12/20 estradiol 1 mg tablet 1 mg PO DAILY ESTROGEN REPLACEMENT 10/06/20 #30 tabs alendronate 70 mg tablet See Rx Instructions .Route 04/06/21 .COMPLEX #7 tabs oseltamivir 75 mg capsule 75 mg PO BID #10 caps 07/06/21 cephalexin 500 mg capsule 500 mg PO Q6H #28 caps 05/29/22 Allergies Allergy/AdvReac Type Severity Reaction Status Date / Time codeine Allergy Severe S-DIFF. Verified 10/01/19 10:58 BREATHING sertraline [From Zoloft] Allergy Mild bad dreams Verified 10/01/19 10:58 PFSH <KELY Bradley - Last Filed: 08/24/23 23:32> [facility], LAT[facility] Disclaimer: The information contained in this section may have been updated after the patient was seen, as this information can be updated by other users. Social History Smoking Status: Never smoker alcohol intake: current alcohol intake frequency: a few times a week substance use type: denies use current occupational status: disabled Travel in the last 8 weeks: None <KELY Bradley - Last Filed: 08/24/23 23:32> ROS Obtained: Yes Systems reviewed as appropriate & no additional complaints except as documented Physical Exam <KELY Bradley - Last Filed: 08/24/23 23:32> General General appearance: alert, in no apparent distress and appears intoxicated Head Head exam: normal inspection (No step-offs or deformity felt on palpation) Eye Eye exam: Present PERRL and EOMI; Absent normal appearance (Patient has laceration at the lateral corner of the right eye inferiorly however conjunctive I is intact extraocular movements are intact vision is intact) ENT ENT exam: Present normal exam, normal oropharynx and mucous membranes moist Neck Neck exam: Present normal inspection, full ROM and trachea midline; Absent tenderness or lymphadenopathy Chest Chest inspection: Present normal inspection and symmetric chest wall rise Respiratory Respiratory exam: Present normal lung sounds bilaterally; Absent respiratory distress or accessory muscle use Cardiovascular Cardiovascular exam: Present regular rate, normal rhythm and normal heart sounds Abdominal Exam Abdominal exam: Present soft and normal bowel sounds; Absent tenderness Extremities Exam Extremities exam: Present normal inspection and full ROM; Absent tenderness Back Exam Back exam: Present normal inspection and full ROM; Absent tenderness Neurological Exam Neurological exam: Present other (Cranial nerves II through XII are intact grossly to exam patient is intoxicated and is slurring her speech but answering questions appropriately) Psychiatric Psychiatric exam: Present normal affect and normal mood Skin Skin exam: Present warm, dry and normal color Medical Decision Making <KELY Bradley - Last Filed: 08/24/23 23:32> Medical Records Medical records reviewed: Yes I reviewed the patient's medical records. Filemon Inquiry Pt receiving controlled substance: No Vital Signs: 08/24/23 20:34 Temperature 97.8 F Temperature Source Oral Pulse Rate [Right Radial] 91 H Respiratory Rate 20 Blood Pressure [Right Arm] 112/66 Blood Pressure Mean [Right Arm] 81 Blood Pressure Source [Right Arm] Automatic Cuff Blood Pressure Position [Right Arm] Sitting 02 Sat by Pulse Oximetry 95 Oxygen Delivery Method Room Air Lab Data Lab results reviewed: Yes I reviewed the patient's lab results. Lab Results 08/24/23 21:05: WBC 8.7, RBC 4.46, Hgb 14.0, Hct 44.0, MCV 98.6, MCH 31.4 H, MCHC 31.8, RDW 14.7, Plt Count 246, MPV 7.4, Neut % (Auto) 49.5, Lymph % (Auto) 42.1, [place] % (Auto) 5.6, Eos % (Auto) 1.7, Baso % (Auto) 1.0, Neut # (Auto) 4.3, Lymph # (Auto) 3.7, [place] # (Auto) 0.5, Eos # (Auto) 0.2, Baso # (Auto) 0.1, PT 10.2, INR 0.94, Sodium 134 L, Potassium 3.6, Chloride 99, Carbon Dioxide 25, Anion Gap 13.6, BUN 13, Creatinine 1.20 H, Estimated Creat Clear 45, Estimated GFR 44 L, Est GFR ( Amer) 54 L, Glucose 197 H, Calcium 9.3, Magnesium 2.0, Total Bilirubin 0.3, AST 25, ALT 15, Alkaline Phosphatase 75, Troponin I < 0.01, Total Protein 7.2, Albumin 4.3, Globulin 2.9, Albumin/Globulin Ratio 1.5, Plasma/Serum Alcohol 294 H 08/24/23 21:05 08/24/23 21:05 Orders (Tests/Meds): ED MEDICATIONS Discontinued Medications Generic Name Dose Route Start Last Admin Trade Name Freq PRN Reason Stop Dose Admin Acetaminophen 1,000 mg 08/24/23 20:48 08/24/23 21:14 Acetaminophen 1,000mg/100ml Vial IV 08/24/23 20:49 1,000 mg ONCE ONE Administration Lactated Ringer's 1,000 mls @ 999 mls/hr 08/24/23 20:48 08/24/23 21:14 Lactated Ringer's 1000 Ml Bag IV 08/24/23 21:48 999 mls/hr .Q1H1M ONE Administration Iopamidol 175 ml 08/24/23 21:52 08/24/23 21:53 Iopamidol-370 (76%);100ml Bottle IV 08/24/23 21:53 175 ml ONCE ONE Administration Ketorolac Tromethamine 15 mg 08/24/23 20:48 08/24/23 21:14 Ketorolac 30mg/Ml Vial IV 08/24/23 20:49 15 mg ONCE ONE Administration Lidocaine HCl 10 ml 08/24/23 22:48 08/24/23 22:51 Lidocaine 1% 10ml Mdv SQ 08/24/23 22:49 10 ml ONCE ONE Administration Sodium Chloride 50 ml 08/24/23 21:52 08/24/23 21:53 0.9 % Sodium Chloride 50 Ml Vial IV 08/24/23 21:53 50 ml ONCE ONE Administration Sodium Chloride 10 ml 08/24/23 21:52 08/24/23 21:53 Sodium Chloride 0.9% 10ml Syr (Rad Only) IV 08/24/23 21:53 10 ml ONCE ONE Administration ORDERS Category Date Time Status CT angio chest - dissection Stat Cat Scan 08/24/23 20:[address] angio head Stat Cat Scan 08/24/23 20:[address] angio neck Stat Cat Scan 08/24/23 20:[address] cervical spine wo con Stat Cat Scan 08/24/23 20:[address] facial bones wo con Stat Cat Scan 08/24/23 20:[address] head/brain wo con Stat Cat Scan 08/24/23 20:[address] lumbar spine wo con Stat Cat Scan 08/24/23 20:[address] thoracic spine wo con Stat Cat Scan 08/24/23 20:49 Completed CBC w/Auto Diff [Complete Blood Count Auto Diff] Stat Lab 08/24/23 21:05 Completed CMP [Comprehensive Metabolic Panel] Stat Lab 08/24/23 21:05 Completed Ethanol [Ethyl Alcohol] Stat Lab 08/24/23 21:05 Completed INR [Prothrombin Time INR] Stat Lab 08/24/23 21:05 Completed Magnesium Stat Lab 08/24/23 21:05 Completed Trop I [Troponin I] Stat Lab 08/24/23 21:05 Completed Troponin I Q3H Lab 08/25/23 02:50 Ordered Medical Decision Narrative: In summary patient is a 72-year-old female who presents to the emergency department for evaluation of a fall. Patient is hemodynamically stable upon arrival, afebrile. Physical exam is remarkable for laceration to the lateral aspect of the orbit but not the eye itself. Extraocular movements are intact. Patient also has a forehead hematoma. Patient is obviously intoxicated and is slurring her words however she is answering questions appropriately. She is interactively appropriate. Differential diagnosis includes head bleed skull fracture orbit fracture facial fracture laceration alcohol intoxication cervical spine injury vascular deceleration injury etc. Initial workup will be conducted with hematologic labs CT imaging. Initial interventions include Toradol Tylenol. Initial workup reviewed by me is that her hematologic labs are nonactionable and my informal interpretation of her CT scan is significant for a left occipital condyle fracture. Upon repeat evaluation patient is now much more alert and mentating and elucidating more clearly. Given the CT findings consulted with [facility] at 2046. We finally spoke to the [facility] at 2329 and neurosurgery spine recommended c-collar at all times and they will contact the patient to arrange a follow-up appointment. Laceration repair was done with 6.0 nylon. 8 stitches were used. The laceration stretched just lateral to the lateral epicanthus but not involving it along the lower border of the lower lid and abutting to the lid margin but not through it. <Trae Plaza MD - Last Filed: 08/24/23 23:33> Vital Signs: 08/24/23 20:34 Temperature 97.8 F Temperature Source Oral Pulse Rate [Right Radial] 91 H Respiratory Rate 20 Blood Pressure [Right Arm] 112/66 Blood Pressure Mean [Right Arm] 81 Blood Pressure Source [Right Arm] Automatic Cuff Blood Pressure Position [Right Arm] Sitting 02 Sat by Pulse Oximetry 95 Oxygen Delivery Method Room Air Lab Data Lab Results 08/24/23 21:05: WBC 8.7, RBC 4.46, Hgb 14.0, Hct 44.0, MCV 98.6, MCH 31.4 H, MCHC 31.8, RDW 14.7, Plt Count 246, MPV 7.4, Neut % (Auto) 49.5, Lymph % (Auto) 42.1, Bartow % (Auto) 5.6, Eos % (Auto) 1.7, Baso % (Auto) 1.0, Neut # (Auto) 4.3, Lymph # (Auto) 3.7, [place] # (Auto) 0.5, Eos # (Auto) 0.2, Baso # (Auto) 0.1, PT 10.2, INR 0.94, Sodium 134 L, Potassium 3.6, Chloride 99, Carbon Dioxide 25, Anion Gap 13.6, BUN 13, Creatinine 1.20 H, Estimated Creat Clear 45, Estimated GFR 44 L, Est GFR ( Amer) 54 L, Glucose 197 H, Calcium 9.3, Magnesium 2.0, Total Bilirubin 0.3, AST 25, ALT 15, Alkaline Phosphatase 75, Troponin I < 0.01, Total Protein 7.2, Albumin 4.3, Globulin 2.9, Albumin/Globulin Ratio 1.5, Plasma/Serum Alcohol 294 H Orders (Tests/Meds): ED MEDICATIONS Discontinued Medications Generic Name Dose Route Start Last Admin Trade Name Freq PRN Reason Stop Dose Admin Acetaminophen 1,000 mg 08/24/23 20:48 08/24/23 21:14 Acetaminophen 1,000mg/100ml Vial IV 08/24/23 20:49 1,000 mg ONCE ONE Administration Lactated Ringer's 1,000 mls @ 999 mls/hr 08/24/23 20:48 08/24/23 21:14 Lactated Ringer's 1000 Ml Bag IV 08/24/23 21:48 999 mls/hr .Q1H1M ONE Administration Iopamidol 175 ml 08/24/23 21:52 08/24/23 21:53 Iopamidol-370 (76%);100ml Bottle IV 08/24/23 21:53 175 ml ONCE ONE Administration Ketorolac Tromethamine 15 mg 08/24/23 20:48 08/24/23 21:14 Ketorolac 30mg/Ml Vial IV 08/24/23 20:49 15 mg ONCE ONE Administration Lidocaine HCl 10 ml 08/24/23 22:48 08/24/23 22:51 Lidocaine 1% 10ml Mdv SQ 08/24/23 22:49 10 ml ONCE ONE Administration Sodium Chloride 50 ml 08/24/23 21:52 08/24/23 21:53 0.9 % Sodium Chloride 50 Ml Vial IV 08/24/23 21:53 50 ml ONCE ONE Administration Sodium Chloride 10 ml 08/24/23 21:52 08/24/23 21:53 Sodium Chloride 0.9% 10ml Syr (Rad Only) IV 08/24/23 21:53 10 ml ONCE ONE Administration ORDERS Category Date Time Status CT angio chest - dissection Stat Cat Scan 08/24/23 20:[address] angio head Stat Cat Scan 08/24/23 20:[address] angio neck Stat Cat Scan 08/24/23 20:[address] cervical spine wo con Stat Cat Scan 08/24/23 20:[address] facial bones wo con Stat Cat Scan 08/24/23 20:[address] head/brain wo con Stat Cat Scan 08/24/23 20:[address] lumbar spine wo con Stat Cat Scan 08/24/23 20:[address] thoracic spine wo con Stat Cat Scan 08/24/23 20:49 Completed CBC w/Auto Diff [Complete Blood Count Auto Diff] Stat Lab 08/24/23 21:05 Completed CMP [Comprehensive Metabolic Panel] Stat Lab 08/24/23 21:05 Completed Ethanol [Ethyl Alcohol] Stat Lab 08/24/23 21:05 Completed INR [Prothrombin Time INR] Stat Lab 08/24/23 21:05 Completed Magnesium Stat Lab 08/24/23 21:05 Completed Trop I [Troponin I] Stat Lab 08/24/23 21:05 Completed Troponin I Q3H Lab 08/25/23 02:50 Ordered Medical Decision Narrative: In summary patient is a 72-year-old female who presents to the emergency department for evaluation of a fall. Patient is hemodynamically stable upon arrival, afebrile. Physical exam is remarkable for laceration to the lateral aspect of the orbit but not the eye itself. Extraocular movements are intact. Patient also has a forehead hematoma. Patient is obviously intoxicated and is slurring her words however she is answering questions appropriately. She is interactively appropriate. Differential diagnosis includes head bleed skull fracture orbit fracture facial fracture laceration alcohol intoxication cervical spine injury vascular deceleration injury etc. Initial workup will be conducted with hematologic labs CT imaging. Initial interventions include Toradol Tylenol. Initial workup reviewed by me is that her hematologic labs are nonactionable and my informal interpretation of her CT scan is significant for a left occipital condyle fracture. Upon repeat evaluation patient is now much more alert and mentating and elucidating more clearly. Given the CT findings consulted with [facility] at 2046. We finally spoke to the [facility] at 2329 and neurosurgery spine recommended c-collar at all times and they will contact the patient to arrange a follow-up appointment. Laceration repair was done with 6.0 nylon. 8 stitches were used. The laceration stretched just lateral to the lateral epicanthus but not involving it along the lower border of the lower lid and abutting to the lid margin but not through it. Because patient at baseline without signs or symptoms of clinical decompensation, deemed appropriate for discharge. Results were relayed to patient who voiced understanding and were agreeable to outpatient management and follow up. I discussed my clinical impression with patient and answered all questions. At this time, the evidence for any other entities in the differential is insufficient to warrant any further testing or ED observation. This was explained as well. Advisory was given that persistent or worsening symptoms require further evaluation. I confirmed the understanding of this discussion. I was consulted by the BERNABE, and we discussed the complexity of the problems being addressed. I approved the treatment and management plan for this patient?s care in the Emergency Department, thus performing a substantive portion of the medical decision making. Trae Plaza MD Procedures <KELY Bradley - Last Filed: 08/24/23 23:32> Laceration Laceration 1: Site: face (Eyelid) Side (If applicable): right Size (cm): 3 Description: linear and involves lid margin Depth: simple, single layer Local Anesthetic: lidocaine 1% Amount of anesthesia used (mL): 10 Pre-repair: wound explored, irrigated extensively and deep structures intact Skin layer closed with: nylon Size (cm): 6-0 Number of sutures: 8 Technique: simple, interrupted Critical Care <KELY Bradley - Last Filed: 08/24/23 23:32> Critical Care Time Critical Care Time: No
--- NOTE | 2023-08-24 20:49 | CT_ITS ---
PROCEDURE INFORMATION: Exam: CT Head Without Contrast Exam date and time: 08/24/2023 9:26 PM Age: 72 years old Clinical indication: Pain; Other: Trauma; Additional info: Trauma, critical injury suspected TECHNIQUE: Imaging protocol: Computed tomography of the head without contrast. Radiation optimization: All CT scans at this facility use at least one of these dose optimization techniques: automated exposure control; mA and/or kV adjustment per patient size (includes targeted exams where dose is matched to clinical indication); or iterative reconstruction. COMPARISON: CT HEAD/BRAIN WO CON 08/10/2022 6:48 PM FINDINGS: Brain: Atrophy and chronic small vessel ischemic changes. No hemorrhage. No mass effect or midline shift. Cerebral ventricles: No ventriculomegaly. Paranasal sinuses: Visualized sinuses are unremarkable. No fluid levels. Mastoid air cells: Visualized mastoid air cells are well aerated. Bones: Left occipital condyle fracture nondisplaced.. Soft tissues: Soft tissue hematoma in the right cheek and supraorbital region/forehead. IMPRESSION: Chronic changes in the brain but no acute intracranial abnormality. Left occipital condyle fracture.
--- NOTE | 2023-08-24 20:49 | CT_ITS ---
PROCEDURE INFORMATION: Exam: CT Lumbar Spine Without Contrast Exam date and time: 08/24/2023 9:37 PM Age: 72 years old Clinical indication: Pain; Additional info: Trauma, critical injury suspected TECHNIQUE: Imaging protocol: Computed tomography of the lumbar spine without contrast. Radiation optimization: All CT scans at this facility use at least one of these dose optimization techniques: automated exposure control; mA and/or kV adjustment per patient size (includes targeted exams where dose is matched to clinical indication); or iterative reconstruction. COMPARISON: 1. CT THORACIC SPINE WO CON 08/24/2023 9:34 PM 2. CR XR PELVIS 1-2V 06/07/2019 1:41 AM FINDINGS: Bones/joints: There is diffuse osseous demineralization. No evidence of acute spondylolisthesis or vertebral subluxation. Vertebral body heights are generally preserved, but some endplate sclerosis and anterior osteophytes are noted at multiple levels. Narrowing of multiple intervertebral disc spaces observed, indicative of degenerative disc disease. Hypertrophic changes are seen in the facet joints, consistent with osteoarthritis. No fractures or bony lesions identified. No abnormalities seen in adjacent osseous structures. Kidneys and ureters: There is bilateral hydroureteronephrosis extending to a significantly distended urinary bladder. Vasculature: Scattered atherosclerotic disease of the arterial vasculature. Soft tissues: Unremarkable. Other findings: No obvious abnormalities seen in the prevertebral and paravertebral soft tissues. IMPRESSION: 1. There is bilateral hydroureteronephrosis extending to a significantly distended urinary bladder. 2. Degenerative changes without acute abnormality detected.
--- NOTE | 2023-08-24 20:49 | CT_ITS ---
PROCEDURE INFORMATION: Exam: CTA Chest With Contrast Exam date and time: 08/24/2023 9:47 PM Age: 72 years old Clinical indication: Pain; Additional info: Trauma, critical injury suspected TECHNIQUE: Imaging protocol: Computed tomographic angiography of the chest with contrast. Exam focused on the arteries. 3D rendering (Not supervised by radiologist): MIP and/or 3D reconstructed images were created by the technologist. Radiation optimization: All CT scans at this facility use at least one of these dose optimization techniques: automated exposure control; mA and/or kV adjustment per patient size (includes targeted exams where dose is matched to clinical indication); or iterative reconstruction. Contrast material: ISOVUE; Contrast volume: 75 ml; Contrast route: INTRAVENOUS (IV); COMPARISON: 1. CR XR CHEST PORTABLE 06/07/2019 1:[address] ANGIO NECK 08/24/2023 9:[address] THORACIC SPINE WO CON 08/24/2023 9:34 PM FINDINGS: Pulmonary arteries: Normal. No pulmonary emboli. Aorta: There is atherosclerotic disease of the visualized aorta and its major branch vessels. Thyroid: There is heterogeneity of the thyroid gland for which nonemergent thyroid ultrasound should be considered. Lungs: Scattered areas of bronchial wall thickening which are likely chronic inflammatory. A few areas of subpleural reticulation are noted, nonspecific. Pleural spaces: Unremarkable. No pneumothorax. No pleural effusion. Heart: Unremarkable. No cardiomegaly. No pericardial effusion. Lymph nodes: Unremarkable. No enlarged lymph nodes. Spleen: There are multiple calcifications in the spleen most likely reflects small granulomas. Kidneys and ureters: Partially visualized bilateral hydroureteronephrosis. Bones/joints: Please see the dedicated interpretation of the spine for findings in that region. There is diffuse degenerative disease of the visualized osseous structures. Soft tissues: Unremarkable. Other findings: Motion artifact mildly limits evaluation. IMPRESSION: 1. Exam mildly limited by motion. 2. No acute traumatic injury is identified. 3. Partially visualized bilateral hydroureteronephrosis. 4. There is heterogeneity of the thyroid gland for which nonemergent thyroid ultrasound should be considered.
--- NOTE | 2023-08-24 20:49 | CT_ITS ---
PROCEDURE INFORMATION: Exam: CTA Neck With Contrast Exam date and time: 08/24/2023 9:41 PM Age: 72 years old Clinical indication: Pain; Additional info: Trauma, critical injury suspected TECHNIQUE: Imaging protocol: Computed tomographic angiography of the neck with contrast. Exam focused on the cervical segments of the vasculature. 3D rendering (Not supervised by radiologist): MIP and/or 3D reconstructed images were created by the technologist. Radiation optimization: All CT scans at this facility use at least one of these dose optimization techniques: automated exposure control; mA and/or kV adjustment per patient size (includes targeted exams where dose is matched to clinical indication); or iterative reconstruction. Contrast material: ISOVUE; Contrast volume: 100 ml; Contrast route: INTRAVENOUS (IV); COMPARISON: CT CERVICAL SPINE WO CON 08/24/2023 9:31 PM FINDINGS: Right common carotid artery: No stenosis. No dissection or occlusion. Right internal carotid artery: No stenosis of the extracranial segment. No dissection or occlusion. Right external carotid artery: No occlusion or stenosis of the origin. Left common carotid artery: No stenosis. No dissection or occlusion. Left internal carotid artery: No stenosis of the extracranial segment. No dissection or occlusion. Left external carotid artery: No occlusion or stenosis of the origin. Right vertebral artery: No stenosis. No dissection or occlusion. Left vertebral artery: No stenosis. No dissection or occlusion. Soft tissues: Normal. No significant soft tissue swelling. Bones/joints: No acute fracture. IMPRESSION: No stenosis or occlusion. REFERENCES: NASCET CRITERIA. The degree of stenosis in the cervical segment of the internal carotid artery is based on NASCET criteria. Normal is no stenosis. Mild is less than 50% stenosis. Moderate is 50-69% stenosis. Severe is 70% to 99% stenosis. Total occlusion is no detectable patent lumen.
--- NOTE | 2023-08-24 20:49 | CT_ITS ---
PROCEDURE INFORMATION: Exam: CTA Head With Contrast, Arteriography Exam date and time: 08/24/2023 9:41 PM Age: 72 years old Clinical indication: Pain; Additional info: Trauma, critical injury suspected TECHNIQUE: Imaging protocol: Computed tomographic angiography of the head with contrast. Exam focused on the arteries. 3D rendering (Not supervised by radiologist): MIP and/or 3D reconstructed images were created by the technologist. Radiation optimization: All CT scans at this facility use at least one of these dose optimization techniques: automated exposure control; mA and/or kV adjustment per patient size (includes targeted exams where dose is matched to clinical indication); or iterative reconstruction. Contrast material: ISOVUE; Contrast volume: 100 ml; Contrast route: INTRAVENOUS (IV); COMPARISON: CT HEAD/BRAIN WO CON 08/24/2023 9:26 PM FINDINGS: ANTERIOR CIRCULATION: Right internal carotid artery: Intracranial segment is patent with no significant stenosis. No aneurysm. Right middle cerebral artery: No occlusion or significant stenosis. No aneurysm. Right anterior cerebral artery: The right A2 segment of the anterior cerebral artery is not well seen and this could be due to extremely diminutive caliber or occlusion. No aneurysm. Left internal carotid artery: Intracranial segment is patent with no significant stenosis. No aneurysm. Left middle cerebral artery: No occlusion or significant stenosis. No aneurysm. Left anterior cerebral artery: No occlusion or significant stenosis. No aneurysm. POSTERIOR CIRCULATION: Right vertebral artery: No occlusion or significant stenosis. No aneurysm. Left vertebral artery: No occlusion or significant stenosis. No aneurysm. Basilar artery: No occlusion or significant stenosis. No aneurysm. Right posterior cerebral artery: No occlusion or significant stenosis. No aneurysm. Left posterior cerebral artery: No occlusion or significant stenosis. No aneurysm. Brain: No definite mass, mass effect, or midline shift. Cerebral ventricles: No ventriculomegaly. Bones/joints: Left occipital condyle fracture as described on head CT and cervical spine CT done the same day. Soft tissues: Unremarkable. IMPRESSION: The right A2 segment of the anterior cerebral artery is not well seen and this could be due to extremely diminutive caliber or occlusion. Otherwise no large vessel stenosis or occlusion.
--- NOTE | 2023-08-24 20:49 | CT_ITS ---
PROCEDURE INFORMATION: Exam: CT Maxillofacial Without Contrast Exam date and time: 08/24/2023 9:29 PM Age: 72 years old Clinical indication: Pain; Additional info: Trauma, critical injury suspected TECHNIQUE: Imaging protocol: Computed tomography of the face without contrast. Radiation optimization: All CT scans at this facility use at least one of these dose optimization techniques: automated exposure control; mA and/or kV adjustment per patient size (includes targeted exams where dose is matched to clinical indication); or iterative reconstruction. COMPARISON: CT HEAD/BRAIN WO CON 08/24/2023 9:26 PM FINDINGS: Orbital cavities: Orbits are normal. Globes are unremarkable. Bones: No acute facial fracture. Nondisplaced fracture of the left occipital condyle described on cervical spine CT done the same day. Paranasal sinuses: Normal. No air-fluid levels. Soft tissues: Soft tissue swelling in the right forehead and infraorbital region and right cheek. Tiny foci of gas in this region. IMPRESSION: Nondisplaced fracture of the left occipital condyle described on cervical spine CT done the same day. No additional facial fracture.
--- NOTE | 2023-08-24 20:49 | CT_ITS ---
PROCEDURE INFORMATION: Exam: CT Cervical Spine Without Contrast Exam date and time: 08/24/2023 9:31 PM Age: 72 years old Clinical indication: Pain; Additional info: Trauma, critical injury suspected TECHNIQUE: Imaging protocol: Computed tomography of the cervical spine without contrast. Radiation optimization: All CT scans at this facility use at least one of these dose optimization techniques: automated exposure control; mA and/or kV adjustment per patient size (includes targeted exams where dose is matched to clinical indication); or iterative reconstruction. COMPARISON: CT CERVICAL SPINE WO CON 05/29/2022 6:24 PM FINDINGS: Bones: Nondisplaced fracture of the left occipital condyle. No additional cervical spine fracture or malalignment. No significant disc bulge or herniation. No severe spinal canal stenosis. No significant neural foraminal narrowing. Lungs: Lung apices are normal. Soft tissues: Unremarkable. IMPRESSION: Nondisplaced fracture of the left occipital condyle. No additional cervical spine fracture or malalignment
--- NOTE | 2023-08-24 20:49 | CT_ITS ---
PROCEDURE INFORMATION: Exam: CT Thoracic Spine Without Contrast Exam date and time: 08/24/2023 9:34 PM Age: 72 years old Clinical indication: Pain; Additional info: Trauma, critical injury suspected TECHNIQUE: Imaging protocol: Computed tomography of the thoracic spine without contrast. Radiation optimization: All CT scans at this facility use at least one of these dose optimization techniques: automated exposure control; mA and/or kV adjustment per patient size (includes targeted exams where dose is matched to clinical indication); or iterative reconstruction. COMPARISON: 1. CT CERVICAL SPINE WO CON 08/24/2023 9:[address] CERVICAL SPINE WO CON 05/29/2022 6:[address] CERVICAL SPINE WO CON 06/07/2019 1:34 AM FINDINGS: Bones/joints: There is an intraosseous hemangioma at T12. There is exaggeration of the spinal curvature. Soft tissues: Unremarkable. Lungs: There are areas of subpleural reticulation throughout the visualized lungs which are nonspecific. Kidneys and ureters: Partially visualized bilateral hydroureteronephrosis. IMPRESSION: 1. Partially visualized bilateral hydroureteronephrosis. 2. No acute traumatic injury is identified.
[2023-08-24 21:09] LABS: Basophils # 0.1 K/mm3 (0-0.2); Eosinophils # 0.2 K/mm3 (0.0-0.4); Eosinophils % 1.7 % (0.1-12.0); Lymphocytes # 3.7 K/mm3 (0.7-4.5); Lymphocytes % 42.1 % (10-50); Mean Corpuscular HGB Conc 31.8 g/dL (31.8-35.4); Mean Corpuscular Hemoglobin 31.4 pg (27.0-31.2); Mean Corpuscular Volume 98.6 fl (81-99); Mean Platelet Volume 7.4 fl (7.4-10.4); Monocytes # 0.5 K/mm3 (0.1-1.0); Monocytes % 5.6 % (1.7-9.3); Neutrophils # 4.3 K/mm3 (1.8-7.8); Neutrophils % 49.5 % (37.0-80.0); Platelet Count 246 K/mm3 (142-424); Red Blood Count 4.46 M/mm3 (4.20-5.40); Red Cell Distribution Width 14.7 % (11.5-17.5); White Blood Count 8.7 K/mm3 (4.8-10.8)
[2023-08-24 21:13] LABS: Chloride 99 mmol/L (98-107); Potassium 3.6 mmoL/L (3.5-5.1); Sodium 134 mmol/L (136-145)
[2023-08-24] MEDS: LACTATED RINGERS 1000ML 1,000 ML 999 ML IV (21:14)
[2023-08-24] MEDS: KETOROLAC 30MG/ML VIAL 15 MG IV (21:14)
[2023-08-24] MEDS: ACETAMINOPHEN 1,000MG/100ML VIAL 1000 MG IV (21:14)
[2023-08-24 21:15] LABS: Alanine Aminotransferase 15 U/L (12-78); Aspartate Amino Transferase 25 U/L (14-36); Blood Urea Nitrogen 13 mg/dl (7-17); Creatinine Clearance Estimated 45 mL/min (50-200); Estimated Glomerular Filt Rate 44 ml/min (>60); GFR (African American) 54 ML/MIN (>60)
[2023-08-24 21:16] LABS: Albumin Level 4.3 g/dl (3.5-5.0); Albumin/Globulin Ratio 1.5 (1.1-1.8); Alkaline Phosphatase 75 U/L (38-126); Anion Gap 13.6 mEq/L (5-15); Bilirubin,Total 0.3 mg/dl (0.2-1.3); Calcium 9.3 mg/dl (8.4-10.2); Carbon Dioxide 25 mmol/L (22.0-30.0); Globulin 2.9 g/dL (1.3-3.2); Glucose 197 mg/dl (74-100); INR 0.94 (0.9-1.1); Prothrombin Time 10.2 seconds (10.1-12.5); Total Protein,Serum 7.2 g/dl (6.3-8.2)
[2023-08-24 21:17] LABS: Ethyl Alcohol 294 mg/dl (0-10)
[2023-08-24 21:33] LABS: Troponin I < 0.01 ng/ml (0.00-0.034)
[2023-08-24] MEDS: IOPAMIDOL-370 (76%);100ML BOTTLE 175 ML IV (21:53)
[2023-08-24] MEDS: SODIUM CHLORIDE 0.9% 10ML SYR (RAD ONLY) 10 ML IV (21:53)
[2023-08-24] MEDS: 0.9 % SODIUM CHLORIDE 50 ML VIAL IV (21:53)
[2023-08-24 22:31] VITALS: BP 149/97; PULSE 91; O2SAT 97
--- NOTE | 2023-08-24 22:49 | PC.NURSE ---
Called [facility] about possible transfer per Dr Plaza. Speaking with [facility] Physician now. MARVIN
[2023-08-24] MEDS: LIDOCAINE 1% 10ML MDV 10 ML SQ (22:51)
[2023-08-24 23:36] VITALS: BP 142/81; PULSE 87; RESP 18; TEMP 36.6; O2SAT 98
== END 2023-08-24 23:37 | disposition home or self-care (01) ==
PROVIDERS: Physician Assistant; Emergency Provider Emergency Medicine
DX: S02.113A Unspecified occipital condyle fracture, initial encounter for closed fracture (principal); S01.81XA Laceration without foreign body of other part of head, initial encounter; F10.929 Alcohol use, unspecified with intoxication, unspecified; W18.39XA Other fall on same level, initial encounter
CPT/HCPCS: 12013; 70450; 70486; 70496; 70498; 71275; 72125; 72128; 72131; 80053; 83735; 84484; 85025; 85610; 96361; 96374; 96375; 99285; J0131; Q9967

== ENCOUNTER 2024-06-23 21:37 | Emergency (ER) | payer MEDICARE, SELFPAY ==
[2024-06-23 21:39] VITALS: BP 131/77; PULSE 78; RESP 20; TEMP 36.6; O2SAT 96; BMI 24.7
[2024-06-23 21:44] VITALS: BP 131/77; PULSE 74; O2SAT 98
[2024-06-23 22:01] VITALS: BP 130/79; PULSE 78; O2SAT 94
--- NOTE | 2024-06-23 22:01 | XR_ITS ---
PROCEDURE INFORMATION: Exam: XR Pelvis Exam date and time: 06/23/2024 10:44 PM Age: 73 years old Clinical indication: Injury or trauma; Fall; Blunt trauma (contusions or hematomas); Bilateral; Hip TECHNIQUE: Imaging protocol: Radiologic exam of the pelvis. Views: 1 or 2 view. COMPARISON: CR XR PELVIS 1-2V 06/07/2019 1:41 AM FINDINGS: Bones/joints: No acute fracture. No dislocation. Degenerative changes. Soft tissues: Unremarkable. IMPRESSION: No acute osseous findings.
--- NOTE | 2024-06-23 22:01 | CT_ITS ---
PROCEDURE INFORMATION: Exam: CT Lumbar Spine Without Contrast Exam date and time: 06/23/2024 11:00 PM Age: 73 years old Clinical indication: Injury or trauma; Fall; Blunt trauma (contusions or hematomas); Additional info: Fall, midline lumbar tender TECHNIQUE: Imaging protocol: Computed tomography of the lumbar spine without contrast. Radiation optimization: All CT scans at this facility use at least one of these dose optimization techniques: automated exposure control; mA and/or kV adjustment per patient size (includes targeted exams where dose is matched to clinical indication); or iterative reconstruction. COMPARISON: CT LUMBAR SPINE WO CON 08/24/2023 9:37 PM FINDINGS: Bones/joints: Lumbar vertebrae normal in height. No acute fracture. Minimal retrolisthesis L5 on S1. Multilevel degenerative changes. Varying degrees of neural foraminal narrowing. No severe spinal canal stenosis. Additional degenerative changes of the sacroiliac joints. Soft tissues: Unremarkable. IMPRESSION: No acute osseous findings.
--- NOTE | 2024-06-23 22:01 | CT_ITS ---
PROCEDURE INFORMATION: Exam: CTA Chest With Contrast CTA Abdomen and Pelvis With Contrast Exam date and time: 06/23/2024 11:09 PM Age: 73 years old Clinical indication: Injury or trauma; Fall; Blunt trauma (contusions or hematomas); Lower abdominal or back area; Bilateral; Additional info: Fall, left upper abdominal pain TECHNIQUE: Imaging protocol: Computed tomographic angiography of the chest with contrast. Exam focused on the arteries. Computed tomographic angiography of the abdomen and pelvis with contrast. Exam focused on the arteries. 3D rendering (Not supervised by radiologist): MIP and/or 3D reconstructed images were created by the technologist. Radiation optimization: All CT scans at this facility use at least one of these dose optimization techniques: automated exposure control; mA and/or kV adjustment per patient size (includes targeted exams where dose is matched to clinical indication); or iterative reconstruction. Contrast material: ISOVUE; Contrast volume: 80 ml; Contrast route: INTRAVENOUS (IV); COMPARISON: 1. CT LUMBAR SPINE WO CON 08/24/2023 9:37 PM 2. CR XR PELVIS 1-2V 06/23/2024 10:44 PM FINDINGS: VASCULATURE: Pulmonary arteries: Normal. No pulmonary emboli. Aorta: Atherosclerosis. No aortic aneurysm. No aortic dissection. Celiac trunk and mesenteric arteries: No occlusion or significant stenosis. Renal arteries: No occlusion or significant stenosis. Right iliac arteries: Atherosclerosis. No occlusion or significant stenosis. Left iliac arteries: Atherosclerosis. No occlusion or significant stenosis. CHEST: Lungs: Atelectasis. No consolidation. No masses. Pleural spaces: Unremarkable. No pneumothorax. No pleural effusion. Heart: Unremarkable. No cardiomegaly. No pericardial effusion. ABDOMEN AND PELVIS: Liver: No mass. Gallbladder and biliary ducts: Unremarkable. No calcified stones. No ductal dilation. Pancreas: Atrophic. No mass. No ductal dilation. Spleen: Small calcified granulomas. No splenomegaly. Adrenal glands: 2 cm indeterminate left adrenal nodule, stable in size from prior CT lumbar spine 08/24/2023. Kidneys and ureters: Chronic bilateral hydroureteronephrosis. No identifiable obstructing stone. No solid mass. 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 Colonic diverticulosis. No obstruction. No mucosal thickening. Appendix: No evidence of appendicitis. Intraperitoneal space: Unremarkable. No free air. No significant fluid collection. Urinary bladder: Distended. No mass. Reproductive: Hysterectomy. Lymph nodes: Small calcified right hilar lymph nodes. Bones/joints: Degenerative changes. No acute fracture. Soft tissues: Unremarkable. IMPRESSION: 1. No acute posttraumatic findings within the chest, abdomen or pelvis. 2. Distended urinary bladder, correlate for urinary retention or bladder lobe obstruction.
--- NOTE | 2024-06-23 22:01 | CT_ITS ---
PROCEDURE INFORMATION: Exam: CT Cervical Spine Without Contrast Exam date and time: 06/23/2024 11:00 PM Age: 73 years old Clinical indication: Injury or trauma; Fall; Blunt trauma; Additional info: Fall, midline neck pain TECHNIQUE: Imaging protocol: Computed tomography of the cervical spine without contrast. Radiation optimization: All CT scans at this facility use at least one of these dose optimization techniques: automated exposure control; mA and/or kV adjustment per patient size (includes targeted exams where dose is matched to clinical indication); or iterative reconstruction. COMPARISON: CT CERVICAL SPINE WO CON 08/24/2023 9:31 PM FINDINGS: Bones: Cervical vertebrae normal in height. No acute fracture. Minimal levoconvex curvature. Maintained craniocervical junction. Multilevel degenerative changes. No severe neural foraminal narrowing or spinal canal stenosis. Lungs: Lung apices are normal. Soft tissues: Unremarkable. IMPRESSION: No acute osseous findings.
--- NOTE | 2024-06-23 22:01 | CT_ITS ---
PROCEDURE INFORMATION: Exam: CT Maxillofacial Without Contrast Exam date and time: 06/23/2024 10:55 PM Age: 73 years old Clinical indication: Injury or trauma; Fall; Blunt trauma (contusions or hematomas); Head/scalp and orbit/periorbital; Without loss of consciousness; Left; Additional info: Fall, left periorbital laceration/swelling TECHNIQUE: Imaging protocol: Computed tomography of the face without contrast. Radiation optimization: All CT scans at this facility use at least one of these dose optimization techniques: automated exposure control; mA and/or kV adjustment per patient size (includes targeted exams where dose is matched to clinical indication); or iterative reconstruction. COMPARISON: CT FACIAL BONES WO CON 08/24/2023 9:29 PM FINDINGS: Paranasal sinuses: [id number] left paranasal sinus mucosal thickening, most prevalent within the ethmoid air cells. Orbital cavities: Orbits are normal. Globes are unremarkable. Bones: No acute fracture. Soft tissues: [id number] left cameron/infraorbital soft tissue swelling associated with a small laceration laterally. IMPRESSION: [id number] left cameron/infraorbital soft tissue swelling associated with a small laceration laterally. No maxillofacial fracture or identifiable ocular injury.
--- NOTE | 2024-06-23 22:01 | CT_ITS ---
PROCEDURE INFORMATION: Exam: CT Head Without Contrast Exam date and time: 06/23/2024 10:52 PM Age: 73 years old Clinical indication: Injury or trauma; Fall; Blunt trauma (contusions or hematomas); Without loss of consciousness; Additional info: Fall, facial trauma TECHNIQUE: Imaging protocol: Computed tomography of the head without contrast. Radiation optimization: All CT scans at this facility use at least one of these dose optimization techniques: automated exposure control; mA and/or kV adjustment per patient size (includes targeted exams where dose is matched to clinical indication); or iterative reconstruction. COMPARISON: 1. CT HEAD/BRAIN WO CON 08/24/2023 9:[address] ANGIO HEAD 08/24/2023 9:41 PM FINDINGS: Brain: No acute intracranial hemorrhage, midline shift, or mass effect. Diffuse brain parenchymal volume loss. Similar pattern of hypodensities within the cerebral white matter. Cerebral ventricles: No ventriculomegaly. Paranasal sinuses: [id number] left paranasal sinus mucosal thickening, most prevalent within the ethmoid air cells. Mastoid air cells: Visualized mastoid air cells are well aerated. Bones: Unremarkable. No acute fracture. Soft tissues: No significant scalp soft tissue swelling. IMPRESSION: No acute intracranial findings.
--- NOTE | 2024-06-23 22:01 | CT_ITS ---
PROCEDURE INFORMATION: Exam: CT Thoracic Spine Without Contrast Exam date and time: 06/23/2024 11:00 PM Age: 73 years old Clinical indication: Injury or trauma; Fall; Blunt trauma (contusions or hematomas); Additional info: Fall, midline thoracic pain TECHNIQUE: Imaging protocol: Computed tomography of the thoracic spine without contrast. Radiation optimization: All CT scans at this facility use at least one of these dose optimization techniques: automated exposure control; mA and/or kV adjustment per patient size (includes targeted exams where dose is matched to clinical indication); or iterative reconstruction. COMPARISON: CT THORACIC SPINE WO CON 08/24/2023 9:34 PM FINDINGS: Bones/joints: Thoracic vertebrae normal in height. No acute fracture. Normal alignment. Multilevel degenerative changes. No severe neural foraminal narrowing or spinal canal stenosis. Soft tissues: Unremarkable. IMPRESSION: No acute osseous findings.
[2024-06-23 22:18] LABS: Basophils # 0.1 K/mm3 (0-0.2); Basophils % 0.6 % (0.1-2.0); Eosinophils # 0.2 K/mm3 (0.0-0.4); Hematocrit 40.2 % (37.0-47.0); Hemoglobin 13.5 g/dL (12.2-16.2); Lymphocytes # 2.5 K/mm3 (0.7-4.5); Lymphocytes % 29.3 % (10-50); Mean Corpuscular HGB Conc 33.6 g/dL (31.8-35.4); Mean Corpuscular Hemoglobin 30.9 pg (27.0-31.2); Mean Platelet Volume 9.9 fl (7.4-10.4); Monocytes # 1.2 K/mm3 (0.1-1.0); Monocytes % 13.5 % (1.7-9.3); Neutrophils # 4.7 K/mm3 (1.8-7.8); Platelet Count 188 K/mm3 (142-424); Red Blood Count 4.37 M/mm3 (4.20-5.40); Red Cell Distribution Width 13.4 % (11.5-17.5); White Blood Count 8.6 K/mm3 (4.8-10.8)
--- NOTE | 2024-06-23 22:20 | ED_ITS ---
Discharge Plan Disposition Patient Disposition: Home, Self-Care Prescriptions Prescriptions: New lidocaine 5 % adhesive patch,medicated 1 patch topical DAILY PRN (Reason: pain) Qty: 30 0RF Rx Instructions: leave on most painful area for up to 12 hrs No Action omeprazole 20 mg capsule,delayed release(DR/EC) 20 mg PO DAILY insulin glargine [Lantus U-100 Insulin] 100 unit/mL solution 17 unit SUB-Q QHS triamterene-hydrochlorothiazid 37.5-25 mg capsule 1 cap PO QAM Rx Instructions: furosemide 40 mg tablet 40 mg PO DAILY diazepam 5 mg tablet 5 mg PO BID promethazine 25 mg tablet 25 mg PO Q6H PRN (Reason: Nausea) simvastatin [Zocor] 40 mg tablet 40 mg PO QPM losartan [Cozaar] 100 mg tablet 100 mg PO DAILY ranitidine HCl [Zantac] 300 mg tablet 300 mg PO BID hydrocodone-acetaminophen 7.5-325 mg tablet 1 tab PO Q4H PRN (Reason: PAIN) amlodipine 5 mg tablet 10 mg PO DAILY aspirin 81 mg tablet,delayed release (DR/EC) 81 mg PO DAILY insulin glargine 100 unit/mL (3 mL) insulin pen 15 unit SQ QPM cholecalciferol (vitamin D3) 75 mcg (3,000 unit) tablet 75 mcg PO DAILY esomeprazole magnesium 20 mg capsule,delayed release(DR/EC) 20 mg PO DAILY glimepiride 2 mg tablet PO DAILY (DME) pen needle, diabetic 31 gauge x 5/16 needle See Rx Instructions .ROUTE .MEDSUPPLY Qty: 1,200 Rx Instructions: As directed metoprolol succinate 25 mg tablet extended release 24 hr PO oxybutynin chloride 5 mg tablet 5 mg PO TID 30 Days Qty: 90 6RF estradiol 1 mg tablet 1 mg PO DAILY Qty: 30 11RF Rx Instructions: this a decrease in dosage from 2mg to 1mg alendronate 70 mg tablet See Rx Instructions .ROUTE .COMPLEX Qty: 7 0RF Dose Instruction: TAKE 1 TABLET ONCE A WEEKIN THE MORNING AT LEAST 30 MINUTES BEFORE FOOD ORBEVERAGE FOR OSTEOPOROSIS Rx Instructions: TAKE 1 TABLET ONCE A WEEKIN THE MORNING AT LEAST 30 MINUTES BEFORE FOOD ORBEVERAGE FOR OSTEOPOROSIS dapagliflozin propanediol 5 MG tablet 5 mg PO ONCE Patient Comments: TAKE 1 TABLET BY MOUTH EVERY DAY ezetimibe-rosuvastatin 1 EACH tablet 1 each PO ONCE oseltamivir 75 MG capsule 75 mg PO BID Qty: 10 0RF cephalexin 500 mg capsule 500 mg PO Q6H Qty: 28 0RF Referrals Follow up/Referrals: Provider,Referral, [Primary Care Provider] - See instructions Activity Restrictions/Add. Instructions Additional Instructions/Restrictions: Please use lidocaine patches and home pain meds as needed. It will take up to 6 weeks for your rib fracture to heal. Monitor your lacerations and perform wound care as discussed. Please follow-up with your primary care provider. Please return to the emergency department if you develop any new or worsening symptoms or become concerned for your health. Clinical Impressions Clinical Impression: Fall, Laceration of eyebrow, left Closed rib fracture Qualifiers: Encounter type: initial encounter Rib fracture type: single rib Laterality: l eft Qualified Code(s): S22.32XA - Fracture of one rib, left side, initial encounter for closed fracture Print Language Print Language: Stateless Discharge ED Provider: Bob Jacobs General Adult HPI <Filiberto Villanueva MD - Last Filed: 06/23/24 23:23> General Chief complaint: Fall Stated complaint: Ao03/01@ 2100 fall facial inj Time Seen by Provider: 06/23/24 21:46 Mode of Arrival: Wheelchair Source of Information: Patient Limitations: No Limitations Description of Symptoms (Recalled from ER Triage Doc. by RN): pt here with c/o head/facial injury s/p mechanical fall car [employer]. pt on aspirin daily, denies loc, denies neck pain. no active bleeding noted. History of Present Illness HPI narrative: Brooklyn Bell is a 73F with a reported history of heart problems and takes a daily baby aspirin, patient believes she may take Plavix as well but is unsure who presents to the emergency department after a fall. Patient states that she got out of bed tonight to walk to the bathroom and ended up falling to the floor. Her heard a thump from the other room and came and found her she was on the floor. She states that she may have lost consciousness and does not know what caused her to fall. She denies any recent chest pain, palpitations or shortness of breath but states that sometimes she gets sharp chest pains. She is complaining of pain to the left side of her face and believes she fell forward. She has a laceration over her left eyebrow and near the corner of her left eye. She is also complaining of neck and back pain and left-sided rib pain. She denies any vision changes or abdominal pain. She denies any pain in her extremities. Patient states that her tetanus shot is up-to-date. Related Data Home Medications ?Medication ?Instructions ?Recorded ?Confirmed diazepam 5 mg tablet 5 mg PO BID NERVES 08/29/17 06/07/19 furosemide 40 mg tablet 40 mg PO DAILY DIURETIC 08/29/17 07/06/21 hydrocodone 7.5 mg-acetaminophen 1 tab PO Q4H PRN PAIN 08/29/17 06/07/19 325 mg tablet insulin glargine 100 unit/mL 17 unit SUB-Q QHS DM 08/29/17 06/07/19 subcutaneous solution (Lantus U-100 Insulin) losartan 100 mg tablet (Cozaar) 100 mg PO DAILY HTN 08/29/17 07/06/21 omeprazole 20 mg capsule,delayed 20 mg PO DAILY STOMACH 08/29/17 06/07/19 release promethazine 25 mg tablet 25 mg PO Q6H PRN Nausea 08/29/17 06/07/19 ranitidine HCl 300 mg tablet 300 mg PO BID STOMACH 08/29/17 06/07/19 (Zantac) simvastatin 40 mg tablet (Zocor) 40 mg PO QPM CHOELSTEROL 08/29/17 06/07/19 triamterene 37.5 1 cap PO QAM BP 08/29/17 06/07/19 mg-hydrochlorothiazide 25 mg capsule amlodipine 5 mg tablet 10 mg PO DAILY Hypertension 10/01/19 07/06/21 aspirin 81 mg tablet,delayed 81 mg PO DAILY heart health 10/01/19 07/06/21 release cholecalciferol (vitamin D3) 75 75 mcg PO DAILY 10/01/19 mcg (3,000 unit) tablet esomeprazole magnesium 20 mg 20 mg PO DAILY Indigestion 10/01/19 07/06/21 capsule,delayed release glimepiride 2 mg tablet mg PO DAILY 10/01/19 insulin glargine 100 unit/mL (3 15 unit SQ QPM 10/01/19 mL) subcutaneous pen metoprolol succinate 25 mg PO 10/01/19 tablet,extended release 24 hr pen needle, diabetic 31 gauge x #1,200 ea 10/01/19 5/16 dapagliflozin propanediol 5 mg 5 mg PO ONCE blood sugar control 07/06/21 07/06/21 tablet ezetimibe 10 mg-rosuvastatin 10 mg 1 each PO ONCE Supplement 07/06/21 07/06/21 tablet Previous Rx's ?Medication ?Instructions ?Recorded oxybutynin chloride 5 mg tablet 5 mg PO TID UNK 30 days #90 tabs 06/12/20 estradiol 1 mg tablet 1 mg PO DAILY ESTROGEN REPLACEMENT 10/06/20 #30 tabs alendronate 70 mg tablet See Rx Instructions .Route 04/06/21 .COMPLEX #7 tabs oseltamivir 75 mg capsule 75 mg PO BID #10 caps 07/06/21 cephalexin 500 mg capsule 500 mg PO Q6H #28 caps 05/29/22 lidocaine 5 % topical patch 1 patch topical DAILY PRN pain #30 06/24/24 ea Allergies Allergy/AdvReac Type Severity Reaction Status Date / Time codeine Allergy Severe S-DIFF. Verified 10/01/19 10:58 BREATHING sertraline (From Zoloft) Allergy Mild bad dreams Verified 10/01/19 10:58 PFSH <Filiberto Villanueva MD - Last Filed: 06/23/24 23:23> [facility] Disclaimer: The information contained in this section may have been updated after the patient was seen, as this information can be updated by other users. Social History Smoking Status: Current every day smoker alcohol intake: current alcohol intake frequency: a few times a week substance use type: denies use current occupational status: disabled Travel in the last 8 weeks: None Have you lived/traveled outside [place] in past 30 days?: No Contact w/someone who lives/traveled outside [place] past 30 days?: No Exposure to someone with infectious disease in past 14 days?: No Do you have a fever (greater than 100.4 F or 38 C)?: No Have you tested positive for COVID-19: No Exposed to someone with COVID-19 in past 14 days?: No Do you have a sore throat?: No Do you have a cough?: No Do you have any weakness?: No Do you have any diarrhea?: No Are you experiencing any unusual bleeding?: No Do you have any muscle aches/pain?: No Do you have any abdominal pain?: No Are you experiencing loss of taste or smell?: No Other Medical History Have you received the Flu Vaccine for this season: Yes Have you received the Pneumonia Vaccine: Yes <Filiberto Villanueva MD - Last Filed: 06/23/24 23:23> ROS Obtained: Yes Systems reviewed as appropriate & no additional complaints except as documented Physical Exam <Filiberto Villanueva MD - Last Filed: 06/23/24 23:23> General General appearance: alert and in no apparent distress Head Head exam: other (1.5 centimeter laceration over the left lateral eyebrow. Skin tear over the left lateral periorbital region. Mild ecchymosis inferior to the eye.) Eye Eye exam: Present normal appearance, PERRL and EOMI ENT ENT exam: Present normal external ear exam Chest Chest inspection: Present symmetric chest wall rise and tenderness (Left lateral chest wall) Respiratory Respiratory exam: Present normal lung sounds bilaterally; Absent respiratory distress, wheezes or stridor Cardiovascular Cardiovascular exam: Present regular rate and normal rhythm Abdominal Exam Abdominal exam: Present soft; Absent tenderness or guarding Extremities Exam Extremities exam: Present normal inspection Back Exam Back exam: Present vertebral tenderness (Midline C/T/L-spine tenderness without step-off or deformity) Neurological Exam Neurological exam: Present alert and oriented X3 Psychiatric Psychiatric exam: Present normal affect Skin Skin exam: Present warm and dry Medical Decision Making <Filiberto Villanueva MD - Last Filed: 06/23/24 23:23> Medical Records Screening: Per USPSTF and CDC recommendations, given the prevalence of disease in our region, it is our hospital?s policy to screen for HIV and viral Hepatitis for all patients aged 18 and over and those with ongoing risk factors. [place] Inquiry Pt receiving controlled substance: No Vital Signs: 06/23/24 21:39 06/23/24 21:44 06/23/24 22:01 Temperature 97.8 F Temperature Source Tympanic Pulse Rate 74 78 Pulse Rate [Apical] 78 Respiratory Rate 20 Blood Pressure 131/77 130/79 Blood Pressure [Right Arm] 131/77 Blood Pressure Mean 93 94 Blood Pressure Mean [Right Arm] 95 02 Sat by Pulse Oximetry 96 98 94 L Oxygen Delivery Method Room Air 06/23/24 22:31 06/23/24 23:23 06/24/24 00:01 Temperature Temperature Source Pulse Rate 75 70 84 Pulse Rate [Apical] Respiratory Rate Blood Pressure 143/71 H 107/61 L 155/92 H Blood Pressure [Right Arm] Blood Pressure Mean 95 76 121 Blood Pressure Mean [Right Arm] 02 Sat by Pulse Oximetry 94 L 92 L 95 Oxygen Delivery Method 06/24/24 00:31 Temperature Temperature Source Pulse Rate 75 Pulse Rate [Apical] Respiratory Rate Blood Pressure 117/71 Blood Pressure [Right Arm] Blood Pressure Mean 86 Blood Pressure Mean [Right Arm] 02 Sat by Pulse Oximetry 98 Oxygen Delivery Method Lab Data Lab Results 06/23/24 22:10: WBC 8.6, RBC 4.37, Hgb 13.5, Hct 40.2, MCV 92.0, MCH 30.9, MCHC 33.6, RDW 13.4, Plt Count 188, MPV 9.9, Neut % (Auto) 54.0, Lymph % (Auto) 29.3, Citrus % (Auto) 13.5 H, Eos % (Auto) 2.0, Baso % (Auto) 0.6, Neut # (Auto) 4.7, Lymph # (Auto) 2.5, Citrus # (Auto) 1.2 H, Eos # (Auto) 0.2, Baso # (Auto) 0.1, PT 9.8 L, INR 0.86 L, Sodium 138, Potassium 4.2, Chloride 103, Carbon Dioxide 23, A nion Gap 16.2 H, BUN 17, Creatinine 0.90, Estimated Creat Clear 52, Estimated GFR 62, Est GFR ( Amer) 75, Glucose 146 H, Calcium 9.7, Total Bilirubin 0.3, AST 27, ALT 15, Alkaline Phosphatase 60, Troponin I < 0.01, Total Protein 7.7, Albumin 4.7, Globulin 3.0, Albumin/Globulin Ratio 1.6 06/23/24 22:10 06/23/24 22:10 Orders (Tests/Meds): ED MEDICATIONS Discontinued Medications Generic Name Dose Route Start Last Admin Trade Name Freq PRN Reason Stop Dose Admin Hydromorphone HCl 0.5 mg 06/23/24 23:33 06/23/24 23:36 Hydromorphone 2mg/Ml Syringe IV 06/23/24 23:34 0.5 mg ONCE ONE Administration Iopamidol 80 ml 06/23/24 23:19 06/23/24 23:20 Iopamidol-370 (76%);100ml Bottle IV 06/23/24 23:20 80 ml ONCE ONE Administration Oxycodone HCl 5 mg 06/24/24 01:08 06/24/24 01:13 Oxycodone 5mg Immediate Release Tablet PO 06/24/24 01:09 Not Given ONCE ONE Sodium Chloride 10 ml 06/23/24 23:19 06/23/24 23:20 Sodium Chloride 0.9% 10ml Syr (Rad Only) IV 06/23/24 23:20 10 ml ONCE ONE Administration ORDERS Category Date Time Status CT angio abdomen pelvis Stat Cat Scan 06/23/24 22:[address] cervical spine wo con Stat Cat Scan 06/23/24 22:[address] facial bones wo con Stat Cat Scan 06/23/24 22:[address] head/brain wo con Stat Cat Scan 06/23/24 22:[address] lumbar spine wo con Stat Cat Scan 06/23/24 22:[address] thoracic spine wo con Stat Cat Scan 06/23/24 22:01 Completed CTA Chest [CT angio chest - dissection] Stat Cat Scan 06/23/24 22:01 Completed Pelvis XR 1-2 views [XR pelvis 1-2V] Stat Exams 06/23/24 22:01 Completed CBC w/Auto Diff [Complete Blood Count Auto Diff] Stat Lab 06/23/24 22:10 Completed CMP [Comprehensive Metabolic Panel] Stat Lab 06/23/24 22:10 Completed PT INR [Prothrombin Time INR] Stat Lab 06/23/24 22:10 Completed Troponin I Q3H Lab 06/24/24 01:15 Ordered Troponin I Q3H Lab 06/24/24 04:15 Ordered Troponin I Stat Lab 06/23/24 22:10 Completed EKG Request [ECG Request] Stat Y 06/23/24 22:05 Ordered ECG Data Tracing #1: I reviewed this ECG and interpreted as documented below: Normal sinus rhythm. Ventricular rate of 78 bpm. QTc normal at 420, SD interval normal at 179. Narrow QRS at [address] elevation or depression. Medical Decision Narrative: Brooklyn Bell is a 73F with a reported history of heart problems and takes a daily baby aspirin, patient believes she may take Plavix as well but is unsure who presents to the emergency department after a fall. Patient states that she got out of bed tonight to walk to the bathroom and ended up falling to the floor. Her heard a thump from the other room and came and found her she was on the floor. She states that she may have lost consciousness and does not know what caused her to fall. She denies any recent chest pain, palpitations or shortness of breath but states that sometimes she gets sharp chest pains. She is complaining of pain to the left side of her face and believes she fell forward. She has a laceration over her left eyebrow and near the corner of her left eye. She is also complaining of neck and back pain and left-sided rib pain. She denies any vision changes or abdominal pain. She denies any pain in her extremities. She does note that she has had 2 alcoholic beverages tonight and smokes marijuana but denies any recreational drug use otherwise. On arrival, patient is normotensive, heart rate within normal limits, breathing comfortably on room air with oxygen saturation at 96% SpO2. Physical exam, stated above, revealed an overall well-appearing female in no distress. She is alert and answering questions appropriately. She has a laceration over her left eyebrow and a skin tear along the lateral aspect of her left lateral periorbital region. She has tenderness to her cervical/thoracic/lumbar mid spine without step-off or deformity. At this time, patient was placed in a cervical collar out of abundance of caution. She has tenderness to palpation over her left lateral ribs as well but no flail chest or obvious deformities. Abdomen is soft, nontender nondistended. She does not have any apparent injuries to her extremities. Differential diagnosis includes, but is not limited to: Cardiac syncope, mechanical fall, electrolyte derangement, hypoglycemia, anemia, intracranial hemorrhage, vertebral injury, intrathoracic injury such as rib fracture or vascular injury, splenic laceration, rib fracture, pulmonary contusion, among others. Patient's workup in the emergency department included: CT head without contrast, CT C/T/L-spine without contrast, CTA of the chest, CTA abdomen and pelvis, pelvis x-ray, CBC, CMP, PT/INR, troponin, EKG. Patient states that her tetanus shot is up-to-date. See EKG interpretation as above At this time, patient's lab work was unremarkable and nonactionable with initial troponin less than 0.01, no anemia or leukocytosis, no GAVIN and electrolytes within normal limits. Glucose normal at 146. At this time, CT imaging and x-ray imaging is pending. Patient's care was transferred to the oncoming physician, Dr. Jacobs. <Bob Jacobs MD - Last Filed: 06/24/24 01:28> Vital Signs: 06/23/24 21:39 06/23/24 21:44 06/23/24 22:01 Temperature 97.8 F Temperature Source Tympanic Pulse Rate 74 78 Pulse Rate [Apical] 78 Respiratory Rate 20 Blood Pressure 131/77 130/79 Blood Pressure [Right Arm] 131/77 Blood Pressure Mean 93 94 Blood Pressure Mean [Right Arm] 95 02 Sat by Pulse Oximetry 96 98 94 L Oxygen Delivery Method Room Air 06/23/24 22:31 06/23/24 23:23 06/24/24 00:01 Temperature Temperature Source Pulse Rate 75 70 84 Pulse Rate [Apical] Respiratory Rate Blood Pressure 143/71 H 107/61 L 155/92 H Blood Pressure [Right Arm] Blood Pressure Mean 95 76 121 Blood Pressure Mean [Right Arm] 02 Sat by Pulse Oximetry 94 L 92 L 95 Oxygen Delivery Method 06/24/24 00:31 Temperature Temperature Source Pulse Rate 75 Pulse Rate [Apical] Respiratory Rate Blood Pressure 117/71 Blood Pressure [Right Arm] Blood Pressure Mean 86 Blood Pressure Mean [Right Arm] 02 Sat by Pulse Oximetry 98 Oxygen Delivery Method Lab Data Lab Results 06/23/24 22:10: WBC 8.6, RBC 4.37, Hgb 13.5, Hct 40.2, MCV 92.0, MCH 30.9, MCHC 33.6, RDW 13.4, Plt Count 188, MPV 9.9, Neut % (Auto) 54.0, Lymph % (Auto) 29.3, Citrus % (Auto) 13.5 H, Eos % (Auto) 2.0, Baso % (Auto) 0.6, Neut # (Auto) 4.7, Lymph # (Auto) 2.5, Citrus # (Auto) 1.2 H, Eos # (Auto) 0.2, Baso # (Auto) 0.1, PT 9.8 L, INR 0.86 L, Sodium 138, Potassium 4.2, Chloride 103, Carbon Dioxide 23, A nion Gap 16.2 H, BUN 17, Creatinine 0.90, Estimated Creat Clear 52, Estimated GFR 62, Est GFR ( Amer) 75, Glucose 146 H, Calcium 9.7, Total Bilirubin 0.3, AST 27, ALT 15, Alkaline Phosphatase 60, Troponin I < 0.01, Total Protein 7.7, Albumin 4.7, Globulin 3.0, Albumin/Globulin Ratio 1.6 Orders (Tests/Meds): ED MEDICATIONS Discontinued Medications Generic Name Dose Route Start Last Admin Trade Name Freq PRN Reason Stop Dose Admin Hydromorphone HCl 0.5 mg 06/23/24 23:33 06/23/24 23:36 Hydromorphone 2mg/Ml Syringe IV 06/23/24 23:34 0.5 mg ONCE ONE Administration Iopamidol 80 ml 06/23/24 23:19 06/23/24 23:20 Iopamidol-370 (76%);100ml Bottle IV 06/23/24 23:20 80 ml ONCE ONE Administration Oxycodone HCl 5 mg 06/24/24 01:08 06/24/24 01:13 Oxycodone 5mg Immediate Release Tablet PO 06/24/24 01:09 Not Given ONCE ONE Sodium Chloride 10 ml 06/23/24 23:19 06/23/24 23:20 Sodium Chloride 0.9% 10ml Syr (Rad Only) IV 06/23/24 23:20 10 ml ONCE ONE Administration ORDERS Category Date Time Status CT angio abdomen pelvis Stat Cat Scan 06/23/24 22:[address] cervical spine wo con Stat Cat Scan 06/23/24 22:[address] facial bones wo con Stat Cat Scan 06/23/24 22:[address] head/brain wo con Stat Cat Scan 06/23/24 22:[address] lumbar spine wo con Stat Cat Scan 06/23/24 22:[address] thoracic spine wo con Stat Cat Scan 06/23/24 22:01 Completed CTA Chest [CT angio chest - dissection] Stat Cat Scan 06/23/24 22:01 Completed Pelvis XR 1-2 views [XR pelvis 1-2V] Stat Exams 06/23/24 22:01 Completed CBC w/Auto Diff [Complete Blood Count Auto Diff] Stat Lab 06/23/24 22:10 Completed CMP [Comprehensive Metabolic Panel] Stat Lab 06/23/24 22:10 Completed PT INR [Prothrombin Time INR] Stat Lab 06/23/24 22:10 Completed Troponin I Q3H Lab 06/24/24 01:15 Ordered Troponin I Q3H Lab 06/24/24 04:15 Ordered Troponin I Stat Lab 06/23/24 22:10 Completed EKG Request [ECG Request] Stat Y 06/23/24 22:05 Ordered Medical Decision Narrative: Brooklyn Bell is a 73F with a reported history of heart problems and takes a daily baby aspirin, patient believes she may take Plavix as well but is unsure who presents to the emergency department after a fall. Patient states that she got out of bed tonight to walk to the bathroom and ended up falling to the floor. Her heard a thump from the other room and came and found her she was on the floor. She states that she may have lost consciousness and does not know what caused her to fall. She denies any recent chest pain, palpitations or shortness of breath but states that sometimes she gets sharp chest pains. She is complaining of pain to the left side of her face and believes she fell forward. She has a laceration over her left eyebrow and near the corner of her left eye. She is also complaining of neck and back pain and left-sided rib pain. She denies any vision changes or abdominal pain. She denies any pain in her extremities. She does note that she has had 2 alcoholic beverages tonight and smokes marijuana but denies any recreational drug use otherwise. On arrival, patient is normotensive, heart rate within normal limits, breathing comfortably on room air with oxygen saturation at 96% SpO2. Physical exam, stated above, revealed an overall well-appearing female in no distress. She is alert and answering questions appropriately. She has a laceration over her left eyebrow and a skin tear along the lateral aspect of her left lateral periorbital region. She has tenderness to her cervical/thoracic/lumbar mid spine without step-off or deformity. At this time, patient was placed in a cervical collar out of abundance of caution. She has tenderness to palpation over her left lateral ribs as well but no flail chest or obvious deformities. Abdomen is soft, nontender nondistended. She does not have any apparent injuries to her extremities. Differential diagnosis includes, but is not limited to: Cardiac syncope, mechanical fall, electrolyte derangement, hypoglycemia, anemia, intracranial hemorrhage, vertebral injury, intrathoracic injury such as rib fracture or vascular injury, splenic laceration, rib fracture, pulmonary contusion, among others. Patient's workup in the emergency department included: CT head without contrast, CT C/T/L-spine without contrast, CTA of the chest, CTA abdomen and pelvis, pelvis x-ray, CBC, CMP, PT/INR, troponin, EKG. Patient states that her tetanus shot is up-to-date. See EKG interpretation as above At this time, patient's lab work was unremarkable and nonactionable with initial troponin less than 0.01, no anemia or leukocytosis, no GAVIN and electrolytes within normal limits. Glucose normal at 146. At this time, CT imaging and x-ray imaging is pending. Patient's care was transferred to the oncoming physician, Dr. Jacobs. Reynaldo HENDRICKS: I assumed care of the patient at the time of handoff from the prior provider. On reassessment patient remains hemodynamically stable. Given additional pain medication for left rib pain. CT imaging independently interpreted by me and shows left 10th posterior rib fracture, minimally displaced. No evidence of intracranial bleeding, facial fracture or intra-abdominal trauma. spines clear. Patient's lacerations were copiously irrigated and repaired by me at bedside with absorbable sutures. Extensive discussion was had with patient regarding wound care and pain control for rib fracture. Patient was discharged in stable condition with return precautions. Procedures <Bob Jacobs MD - Last Filed: 06/24/24 01:28> Laceration Laceration 1: Site: face (2 cm laceration over the left eyebrow, 1 cm laceration inferior lateral to the left lower lid) Side (If applicable): left Description: linear and clean Depth: involves subcutaneous layer Local Anesthetic: lidocaine 1% Amount of anesthesia used (mL): 4 Pre-repair: wound explored, irrigated extensively and deep structures intact Skin layer closed with: other (Fast gut) Size (cm): 5-0 Number of sutures: 5 Technique: simple, interrupted Critical Care <Filiberto Villanueva MD - Last Filed: 06/23/24 23:23> Critical Care Time Critical Care Time: No
[2024-06-23 22:26] LABS: Albumin Level 4.7 g/dl (3.5-5.0); Chloride 103 mmol/L (98-107); Sodium 138 mmol/L (136-145)
[2024-06-23 22:27] LABS: Potassium 4.2 mmoL/L (3.5-5.1)
[2024-06-23 22:29] LABS: Alanine Aminotransferase 15 U/L (12-78); Anion Gap 16.2 mEq/L (5-15); Aspartate Amino Transferase 27 U/L (14-36); Blood Urea Nitrogen 17 mg/dl (7-17); Carbon Dioxide 23 mmol/L (22.0-30.0); Creatinine Clearance Estimated 52 mL/min (50-200); Estimated Glomerular Filt Rate 62 ml/min (>60); GFR (African American) 75 ML/MIN (>60)
--- NOTE | 2024-06-23 22:29 | ECG_ITS ---
APPROVED REPORT Exam: Resting ECG HR:78 bpm ECG Measurements Heart Rate 78 AXES MS 179 P 61 QRSd 96 QRS 1 QT 387 T 27 QTc 420 Conclusion SINUS RHYTHM WITH OCCASIONAL VENTRICULAR PREMATURE COMPLEXES BORDERLINE ECG Electronically signed by : VIC HYMAN, 06/24/2024 08:20:45
[2024-06-23 22:30] LABS: Albumin/Globulin Ratio 1.6 (1.1-1.8); Alkaline Phosphatase 60 U/L (38-126); Bilirubin,Total 0.3 mg/dl (0.2-1.3); Calcium 9.7 mg/dl (8.4-10.2); Glucose 146 mg/dl (74-100); Total Protein,Serum 7.7 g/dl (6.3-8.2)
[2024-06-23 22:31] VITALS: BP 143/71; PULSE 75; O2SAT 94
[2024-06-23 22:32] LABS: INR 0.86 (0.9-1.1); Prothrombin Time 9.8 seconds (10.1-12.5)
[2024-06-23 22:42] LABS: Troponin I < 0.01 ng/ml (0.00-0.034)
--- NOTE | 2024-06-23 23:15 | PC.NURSE ---
Pt back from CT scan via stretcher
[2024-06-23] MEDS: SODIUM CHLORIDE 0.9% 10ML SYR (RAD ONLY) 10 ML IV (23:20)
[2024-06-23] MEDS: IOPAMIDOL-370 (76%);100ML BOTTLE 80 ML IV (23:20)
[2024-06-23 23:23] VITALS: BP 107/61; PULSE 70; O2SAT 92
--- NOTE | 2024-06-23 23:26 | PC.NURSE ---
VERBAL ORDER FROM MD TO DC C-COLLAR FOR PT. C-COLLAR REMOVED AT 2300
[2024-06-23] MEDS: HYDROMORPHONE 2MG/ML SYRINGE 0.5 MG IV (23:36)
[2024-06-24 00:01] VITALS: BP 155/92; PULSE 84; O2SAT 95
[2024-06-24 00:31] VITALS: BP 117/71; PULSE 75; O2SAT 98
--- NOTE | 2024-06-24 01:22 | PC.NURSE ---
provider at the bedside.
[2024-06-24 01:32] VITALS: BP 160/89; PULSE 89; RESP 20; TEMP 36.7; O2SAT 95
== END 2024-06-24 01:35 | disposition home or self-care (01) ==
PROVIDERS: Student in an Organized Health Care Education/Training Program; Emergency Provider Emergency Medicine
DX: S22.32XA Fracture of one rib, left side, initial encounter for closed fracture (principal); S01.112A Laceration without foreign body of left eyelid and periocular area, initial encounter; M54.2 Cervicalgia; M54.9 Dorsalgia, unspecified; R07.81 Pleurodynia; Z79.82 Long term (current) use of aspirin; Z72.0 Tobacco use; W01.0XXA Fall on same level from slipping, tripping and stumbling without subsequent striking against object, initial encounter; Y93.89 Activity, other specified; Y92.003 Bedroom of unspecified non-institutional (private) residence as the place of occurrence of the external cause
CPT/HCPCS: 12013; 70450; 70486; 71275; 72125; 72128; 72131; 72170; 74174; 80053; 84484; 85025; 85610; 93005; 96374; 99285; J1171; Q9967

== ENCOUNTER 2024-11-05 22:06 | Emergency (ER) | payer MEDICARE, OTHER, SELFPAY ==
--- NOTE | 2024-11-05 22:14 | ECG_ITS ---
APPROVED REPORT Exam: Resting ECG HR:84 bpm ECG Measurements Heart Rate 84 AXES CO 183 P -4 QRSd 92 QRS 3 QT 347 T 49 QTc 388 Conclusion SINUS RHYTHM NORMAL ECG No STEMI Electronically signed by : YEIMI WILDER, 11/06/2024 00:10:11
[2024-11-05 22:18] VITALS: BP 141/83; PULSE 82; RESP 14; TEMP 37.1; O2SAT 98; BMI 27.8
--- OUTSIDE RECORDS SUMMARY | 2024-11-05 22:21 | XMS_ITS | Encounter Summary ---
Author Organization [facility] Address [address] [place] [address] Care Team Providers Care Process Control Programmer Name Role Phone Lotus Adkins MD Unavailable [phone] Alexus Stafford DO Primary Care Provider [phone] Oscar Maynard DO Unavailable [phone] Keiko Wiseman MD Unavailable Samaria Agrawal Pharmacist Unavailable +- [phone] Reason for Visit * Reason Comments Medications Refill Encounter Details Date Type Department Care Team (Late st Contact Info) Description 10/07/2024 Refill [facility] Physicians - Primary Care, [place] 1954 [facility] [place] [address] Alexus Stafford DO 1952 Count Includes [facility] D [place] [id number] Medications Refill Social History Tobacco Use Types Packs/Day Years Used Date Smoking Tobacco: Former Cigarettes Q uit: 04/25/1982 Smokeless Tobacco: Never Alcohol Use Standard Drinks/Week Comments Yes 0 (1 standard drink = 0.6 oz pur e alcohol) occaional AUDIT-C Answer Date Recorded Frequency of Alcohol Consumption 2-4 times a tue08/17/2018 Average Number of Drinks 3 or 4 019 Frequency of Binge Drinking Not on file 07/25 PHQ-2 Answer Date Recorded PHQ-9 Auto Total 0 04/29/2023 Comments No Sex and Gender Information Value Date Recorded Sex Assigned at Not on file Legal Sex Female 7:23 PM EST Gender Identity Not on file Sexual Orientation Not on file documented as of this encounter Miscellaneous Notes * Telephone Encounter - Lesia RamseyissaSIMONA - 10/08/2024 8:19 AM EDT Requested Prescriptions Pending Prescriptions Disp Refills Januvia 100 mg Tablet [Pharmacy Med Name: JANUVIA 100 MG TABLET] 90 Tablet 1 Sig: TAKE 1 TABLET BY MOUTH EVERY DAY documented in this encounter Plan of Treatment Upcoming Encounters Date Type Department Care Team (Late st Contact Info) Description 12/28/2024 4:10 PM EDT Appointment [facility] Physicians - Primary Care, [place] 1954 [facility] [place], [place] [address] Alexus Stafford DO 1954 [facility] [place] [address] 01/11/2025 9:40 AM EDT Appointment [facility] Physicians - Heart & Vascular, [facility] [address] [place] [address] [place] [id number] Oscar Maynard DO [address] [facility]. [address] [place] [address] documented as of this encounter Visit Diagnoses Diagnosis Type 2 diabetes mellitus with stage 3a chronic kidney disease, with long-term current use of insulin ([facility]) documented in this encounter Additional Health Concerns Assessment Noted Time PHQ-9 Depression Total Score: 1 04/23/20 19 9:11 AM EST documented as of this encounter Care Teams Process Control Programmer Relationship Specialty Start Date End Date Alexus Stafford DO 1954 [facility] [place] [address] PCP - General Internal Medicine 01/07/20 Lotus Adkins MD [address] [place] [address] Consulting Physician Internal Medicine 05/12/18 Oscar Maynard DO [address] [place], [place] [id number] Advanced Heart Failure/Transplant 08/07/20 Keiko Wiseman MD [address] [place], [place] [address] Family Medicine 03/02/21 Samaria Agrawal, Pharmacist [address] [facility] [address] [place], [place] [address] Pharmacist 03/02/21 10/29/24 Jessica Perez [place] Ophthalmology 05/16/18 documented as of this encounter
--- OUTSIDE RECORDS SUMMARY | 2024-11-05 22:21 | XMS_ITS | Encounter Summary ---
Author Organization [facility] Address [address] [place] [address] Care Team Providers Care Concessions Manager Name Role Phone Lotus Adkins MD Unavailable [phone] Alexus Stafford DO Primary Care Provider [phone] Oscar Maynard DO Unavailable [phone] Keiko Wiseman MD Unavailable Samaria Agrawal Pharmacist Unavailable +- [phone] Gloria Kinney RN Unavailable Reason for Visit * Reason Comments Medications Refill Encounter Details Date Type Department Care Team (Late st Contact Info) Description 08/11/[address] [facility] Physicians - Primary Care, [place] 1954 [facility] [address] [place] [id number] Alexus Stafford DO [address] [facility] [address] Medications Refill Social History Tobacco Use Types Packs/Day Years Used Date Smoking Tobacco: Former Cigarettes Q uit: 04/25/1982 Smokeless Tobacco: Never Alcohol Use Standard Drinks/Week Comments Not Currently 0 (1 standard drink = 0.6 oz pur e alcohol) AUDIT-C Answer Date Recorded Frequency of Alcohol Consumption 2-4 times a tue08/17/2018 Average Number of Drinks 3 or 4 019 Frequency of Binge Drinking Not on file 07/25 PHQ-2 Answer Date Recorded PHQ-2 Score 0 04/23/2019 Comments No Sex and Gender Information Value Date Recorded Sex Assigned at Not on file Legal Sex Female 7:23 PM EST Gender Identity Not on file Sexual Orientation Not on file documented as of this encounter Miscellaneous Notes * Telephone Encounter - Consuelo Bashir MA - 08/11/2022 8:39 AM EDT Requested Prescriptions Pending Prescriptions Disp Refills ??? rosuvastatin (CRESTOR) 10 mg Tablet [Pharmacy Med Name: ROSUVASTATIN CALCIUM 10 MG TAB] 90 Tablet 1 Sig: TAKE 1 TABLET BY MOUTH EVERY DAY IN THE EVENING Last Office Visit: 05/07/22-MR Next Office Visit: Due for a FU on DM and Weight Pending labs on file- No documented in this encounter Plan of Treatment Upcoming Encounters Date Type Department Care Team (Late st Contact Info) Description 12/28/2024 4:10 PM EDT Appointment [facility] Physicians - Primary Care, [place] 1954 [facility], [place] [address] Alexus Stafford DO 1954 [facility] [place] [address] 01/11/2025 9:40 AM EDT Appointment [facility] Physicians - Heart & Vascular, [address] [place] [address] Oscar Maynard DO 1954 [facility] [place], [place] [id number] documented as of this encounter Visit Diagnoses Diagnosis Type 2 diabetes mellitus with chronic kidney disease, with long-term current use of insulin, unspecified CKD stage ([facility]) Hyperlipidemia, unspecified hyperlipidemia type documented in this encounter Additional Health Concerns Assessment Noted Time PHQ-9 Depression Total Score: 1 04/23/20 19 9:11 AM EST documented as of this encounter Care Teams Concessions Manager Relationship Specialty Start Date End Date Alexus Stafford DO 1954 [facility] [address] [facility] [place] [id number] PCP - General Internal Medicine 01/07/20 Lotus Adkins MD [address] [place] [address] Consulting Physician Internal Medicine 05/12/18 Oscar Maynard, [address] [facility] [place], [place] [address] Advanced Heart Failure/Transplant 08/07/20 Keiko Wiseman MD 1954 [facility] [place], [place] [address] Family Medicine 03/02/21 Samaria Agrawal, Pharmacist 1954 [facility] [place], [place] [address] Pharmacist 03/02/21 10/29/24 Gloria Kinney, ALEXSANDRA [address] [place] [address] Metal Grinder 04/21/22 03/30/23 JESSIE Gavin Ophthalmology 05/16/18 documented as of this encounter
--- OUTSIDE RECORDS SUMMARY | 2024-11-05 22:21 | XMS_ITS | Encounter Summary ---
Author Organization [facility] Address [address] [place] [address] Care Team Providers Care Chief Construction Inspector Name Role Phone Lotus Adkins MD Unavailable [phone] Alexus Stafford DO Primary Care Provider [phone] Oscar Maynard DO Unavailable [phone] Keiko Wiseman MD Unavailable Samaria Agrawal Pharmacist Unavailable +- [phone] Reason for Visit * Reason Comments Medications Refill Encounter Details Date Type Department Care Team (Late st Contact Info) Description 10/01/2024 Refill [facility] Physicians - Primary Care, [place] 1954 [facility] [place] [address] Alexus Stafford DO 1954 [facility] [address] [place] [id number] Medications Refill Social History Tobacco Use Types [...] on file documented as of this encounter Plan of Treatment Upcoming Encounters Date Type Department Care Team (Late st Contact Info) Description 12/28/2024 4:10 PM EDT Appointment [facility] Physicians - Primary Care, [place] [address] [place] [address] [facility] [place] [address] Alexus Satfford DO 1954 [place] [address] 01/11/2025 9:40 AM EDT Appointment [facility] Physicians - Heart & Vascular, [place] 1954 [facility] [place] [address] Oscar Maynard DO [address] [place], [place] [address] documented as of this encounter Visit Diagnoses Diagnosis Type 2 diabetes mellitus with chronic kidney disease, with long-term current use of insulin, unspecified CKD stage ([facility]) documented in this encounter Additional Health Concerns Assessment Noted Time PHQ-9 Depression Total Score: 1 04/23/20 19 9:11 AM EST documented as of this encounter Care Teams Chief Construction Inspector Relationship Specialty Start Date End Date Alexus Stafford DO 1954 [facility] [place], [place] [id number] PCP - General Internal Medicine 01/07/20 Lotus Adkins MD [address] [place] [address] Consulting Physician Internal Medicine 05/12/18 Oscar Maynard DO [address] [place] [address] Advanced Heart Failure/Transplant 08/07/20 eKiko Wiseman MD [address] [place] [address] Family Medicine 03/02/21 Samaria Agrawal, Pharmacist [address] [place] [address] Pharmacist 03/02/21 10/29/24 JESSIE Gavin Ophthalmology 05/16/18 documented as of this encounter
--- OUTSIDE RECORDS SUMMARY | 2024-11-05 22:21 | XMS_ITS | Clinical Summary ---
Author Organization [facility] Address [address] [place] [address] Care Team Providers Care Program And Research Coordinator Name Role Phone Unavailable Primary Care Provider Unavailabl e Source Comments This information has been disclosed to you from confidential records protectedfrom disclosure by state law. You shall make no further disclosure of thisinformation without the specific, written, and informed release of theindividual to whom it pertains, or as otherwise permitted by law. A generalauthorization for the release of medical or other information is not sufficientfor the purposes of therelease of HIV test results or diagnoses. [id number] Social History Tobacco Use Types Packs/Day Years Used Date Smoking Tobacco: Never Assessed Comments Unknown Sex and Gender Information Value Date Recorded Sex Assigned at Not on file Legal Sex Female 9:17 PM EST Gender Identity Not on file Sexual Orientation Not on file Plan of Treatment Not on file
--- OUTSIDE RECORDS SUMMARY | 2024-11-05 22:21 | XMS_ITS | Clinical Summary ---
Author Organization Healthcare Address [address] [place] [address] Care Team Providers Care Senior Regulatory Affairs Specialist Name Role Phone Unavailable Primary Care Provider Unavailabl e Social History Tobacco Use Types Packs/Day Years Used Date Smoking Tobacco: Never Assessed Comments Unknown Sex and Gender Information Value Date Recorded Sex Assigned at Not on file Legal Sex Female 10:48 PM EDT Gender Identity Not on file Sexual Orientation Not on file Plan of Treatment Health Maintenance Due Date Last Done Comments [facility]-Bone Density Scan 1952 [facility]-Depression Screening 1952 [facility]-Infant/Child/Adol SDOH Screenings 1952 [facility]- SDOH Screenings 1970 [facility]-Adult SDOH Screenings 1970 [facility]-DTaP,Tdap,and Td Vaccine s (1 - Tdap) 10/24/1971 CT Colonography 1997 Colonoscopy 1997 FIT-DNA 1997 FIT 1997 FOBT 1997 Sigmoidoscopy 1997 [facility]-Colorectal Cancer Screening 1997 [facility]-Pneumococcal Vaccine: 50 + Years (1 of 1 - PCV) 2002 [facility]-Zoster Vaccines (1 of 2) 2002 ISO-TPOIE-46 Vaccine (1 - 20 24-25 season) 2023 [facility]-Influenza Vaccine (#1) 2024 [facility]-RSV Vaccine: 60+ Years o r (1 - 1-dose 75+ series) 10/24/2027 HPV Vaccines Aged Out No longer eligi ble based on patient's age to complete this topic [facility]-HIB Vaccines Aged Out No longer e ligible based on patient's age to complete this topic [facility]-Hepatitis A Vaccines Aged Out No longer eligible based on patient's age to complete this topic [facility]-IPV Vaccines Aged Out No longer e ligible based on patient's age to complete this topic [facility]-Rotavirus Vaccines Aged Out No lo nger eligible based on patient's age to complete this topic Insurance AETNA MEDICARE
--- OUTSIDE RECORDS SUMMARY | 2024-11-05 22:21 | XMS_ITS | Encounter Summary ---
Author Organization [facility] Address [address] [place] [address] Care Team Providers Care Magazine Filler Name Role Phone Lotus Adkins MD Unavailable [phone] Alexus Stafford DO Primary Care Provider [phone] Oscar Maynard DO Unavailable [phone] Keiko Wiseman MD Unavailable Samaria Agrawal Pharmacist Unavailable +- [phone] Reason for Visit * Reason Comments Medications Refill Encounter Details Date Type Department Care Team (Late st Contact Info) Description 10/29/2024 Refill [facility] Physicians - Heart & Vascular, [facility] 1954 [facility] [place] [address] Oscar Maynard DO 1954 [facility] [address] [place] [address] Medications Refill Social History Tobacco Use Types [...] Description 12/28/2024 4:10 PM EDT Appointment [facility] Physicians - Primary Care, [place] [address], [facility] [place], [place] [id number] Alexus Stafford DO 1954 [facility] [place] [address] 01/11/2025 9:40 AM EDT Appointment [facility] Physicians - Heart & Vascular, [facility] [address] [place] [address] [place] [address] Oscar Maynard DO [address] [facility] [address] [place] [address] documented as of this encounter Visit Diagnoses Not on filedocumented in this encounter Additional Health Concerns Assessment Noted Time PHQ-9 Depression Total Score: 1 04/23/20 19 9:11 AM EST documented as of this encounter Care Teams Magazine Filler Relationship Specialty Start Date End Date Alexus Stafford DO 1954 [facility] [place], [place] [phone] PCP - General Internal Medicine 01/07/20 Lotus Adkins MD [address] [place] [address] Consulting Physician Internal Medicine 05/12/18 Oscar Maynard DO [address] [place] [address] Advanced Heart Failure/Transplant 08/07/20 Keiko Wiseman MD [address] [place], [place] [address] Family Medicine 03/02/21 Samaria Agrawal, Pharmacist [address] [place], [place] [address] Pharmacist 03/02/21 10/29/24 Jessica Perez [place] Ophthalmology 05/16/18 documented as of this encounter
--- OUTSIDE RECORDS SUMMARY | 2024-11-05 22:21 | XMS_ITS | Encounter Summary ---
Author Organization [facility] Address [address] [place] [address] Care Team Providers Care Tower Foreman Name Role Phone Lotus Adkins MD Unavailable [phone] Alexus Stafford DO Primary Care Provider [phone] Oscar Maynard DO Unavailable [phone] Keiko Wiseman MD Unavailable Samaria Agrawal Pharmacist Unavailable [phone]- [phone] Gloria Kinney RN Unavailable Reason for Visit * Reason Comments Medications Refill Encounter Details Date Type Department Care Team (Late st Contact Info) Description 10/25/[address] [facility] Physicians - Primary Care, [place] [address] [place] [address] Alexus Stafford DO 1954 [facility] [place], [place] [phone] Medications Refill Social History Tobacco Use Types Packs/Day Years Used Date Smoking Tobacco: Former Cigarettes Q uit: 04/25/1982 Smokeless Tobacco: Never Alcohol Use Standard Drinks/Week Comments Not Currently 0 (1 standard drink = 0.6 oz pur e alcohol) AUDIT-C Answer Date Recorded Frequency of Alcohol Consumption 2-4 times a mon 08/17/2018 Average Number of Drinks 3 or 4 019 Frequency of Binge Drinking Not on file 07/25 PHQ-2 Answer Date Recorded PHQ-2 Score 0 04/23/2019 Comments No Sex and Gender Information Value Date Recorded Sex Assigned at Not on file Legal Sex Female 7:23 PM EST Gender Identity Not on file Sexual Orientation Not on file COVID-19 Exposure Response Date Recorded In the last month, have you been in contact with someone who was confirmed or suspected to have Coronavirus / COVID-19? No / Unsure 10/09/2020 8:27 AM EDT documented as of this encounter Miscellaneous Notes * Telephone Encounter - Akiko You MA - 10/28/2020 3:53 PM EDT Filled 10/20/20 30 d documented in this encounter Plan of Treatment Upcoming Encounters Date Type Department Care Team (Late st Contact Info) Description 12/28/2024 4:10 PM EDT Appointment [facility] Physicians - Primary Care, [place] [address] [facility] [place] [address] Alexus Stafford DO [address] [facility] [place] [address] 01/11/2025 9:40 AM EDT Appointment [facility] Physicians - Heart & Vascular, [address] [facility] [place] [address] Oscar Maynard DO [address] [place] [address] documented as of this encounter Visit Diagnoses Diagnosis Type 2 diabetes mellitus with chronic kidney disease, with long-term current use of insulin, unspecified CKD stage ([facility]) documented in this encounter Additional Health Concerns Assessment Noted Time PHQ-9 Depression Total Score: 1 04/23/20 19 9:11 AM EST documented as of this encounter Care Teams Tower Foreman Relationship Specialty Start Date End Date Alexus Stafford DO [address] [facility] [place] [address] PCP - General Internal Medicine 01/07/20 Lotus Adkins MD [address] [place] [address] Consulting Physician Internal Medicine 05/12/18 Oscar Maynard DO [address] [place] [address] Advanced Heart Failure/Transplant 08/07/20 Keiko Wiseman MD [address] [place] [place] [address] Family Medicine 03/02/21 Samaria Agrawal, Pharmacist [address] [facility] [place] [address] Pharmacist 03/02/21 10/29/24 Gloria Kinney, ALEXSANDRA [address] [place] [address] Broommaker 04/21/22 03/30/23 JESSIE Gavin Ophthalmology 05/16/18 documented as of this encounter
--- OUTSIDE RECORDS SUMMARY | 2024-11-05 22:21 | XMS_ITS | Encounter Summary ---
Author Organization [facility] Address [address] [place] [address] Care Team Providers Care Data Entry Manager Name Role Phone Lotus Adkins MD Unavailable [phone] Alexus Stafford DO Primary Care Provider [phone] Oscar Maynard DO Unavailable [phone] Keiko Wiseman MD Unavailable Samaria Agrawal Pharmacist Unavailable [phone] Reason for Referral * Medication Prior Authorization - Authorized Specialty Diagnoses / Procedures Referred By Contsara t Referred To Contact Diagnoses Type 2 diabetes mellitus with stage 3a chronic kidney disease, with long-term current use of insulin ([facility]) Alexus Stafford DO 1954 [facility] [place] [address] Phone: tel: fax: Referral ID Status Reason Start Date Expiration Date V isits Requested Visits Authorized [id number] Authorized 09/21/2024 04/24/2025 1 1 Reason for Visit * Reason Onset Date Comments Medications Refill 09/05/2024 Encounter Details Date Type Department Care Team (Late st Contact Info) Description 09/05/2024 Refill [facility] Physicians - Primary Care, [place] [address] [facility] [place] [address] Alexus Stafford DO 1954 [facility] [place] [address] Medications Refill Social History Tobacco Use Types [...] encounter Miscellaneous Notes * Telephone Encounter - Bushra Ramsey RMA - 10/01/2024 10:10 AM EDT Request Reference Number: [id number]. DEXCOM G6 MIS SENSOR is approved through 04/24/2025. Your patient may now fill this prescription and it will be covered. PATIENT AWARE * Telephone Encounter - Bushra Ramsey RMA - 09/21/2024 9:19 AM EDT STARTED PA * Telephone Encounter - Mely Constantino - 09/14/2024 11:53 AM EDT Patient is calling back, pharmacy told him these will need PA documented in this encounter Plan of Treatment Upcoming Encounters Date Type Department Care Team (Late st Contact Info) Description 12/28/2024 4:10 PM EDT Appointment [facility] Physicians - Primary Care [place] [address], [place] [address] Alexus Stafford DO [address] [place] [address] 01/11/2025 9:40 AM EDT Appointment [facility] Physicians - Heart & Vascular, [place] [address] [place] [phone] Oscar Maynard DO [address] [facility] [place] [address] documented as of this encounter Visit Diagnoses Diagnosis Type 2 diabetes mellitus with chronic kidney disease, with long-term current use of insulin, unspecified CKD stage ([facility]) documented in this encounter Additional Health Concerns Assessment Noted Time PHQ-9 Depression Total Score: 1 04/23/20 19 9:11 AM EST documented as of this encounter Care Teams Data Entry Manager Relationship Specialty Start Date End Date Alexus Stafford DO [address] [place] [address] PCP - General Internal Medicine 01/07/20 Lotus Adkins MD [address] [place] [address] Consulting Physician Internal Medicine 05/12/18 Oscar Maynard DO [address] [place] [address] Advanced Heart Failure/Transplant 08/07/20 Keiko Wiseman MD 1954 [place] [address] Family Medicine 03/02/21 Samaria Agrawal, Pharmacist [address] [place] [address] Pharmacist 03/02/21 10/29/24 JESSIE Gavin Ophthalmology 05/16/18 documented as of this encounter
--- OUTSIDE RECORDS SUMMARY | 2024-11-05 22:21 | XMS_ITS | Encounter Summary ---
Author Organization The [facility] Address [address] [place] [address] Care Team Providers Care Compensation Vice President Name Role Phone Lotus Adkins MD Unavailable [phone] Alexus Stafford DO Primary Care Provider [phone] Oscar Maynard DO Unavailable [phone] Keiko Wiseman MD Unavailable Samaria Agrawal Pharmacist Unavailable +- [phone] Reason for Visit * Reason Comments Med Change Request Encounter Details Date Type Department Care Team (Late st Contact Info) Description 09/18/[address] [facility] Physicians - Primary Care, [place] 1954 [facility] [place] [address] Alexus Stafford DO 1954 [facility] [place] [id number] Med Change Request Social History Tobacco Use Types Packs/Day Years [...] 4:10 PM EDT Appointment [facility] Physicians - Primary Care, [place] [address] [address], [facility] [place] [address] Alexus Stafford DO 1954 [place] [address] 01/11/2025 9:40 AM EDT Appointment [facility] Physicians - Heart & Vascular, [place] 1954 [place] [id number] Oscar Maynard DO [address] [place], [place] [id number] documented as of this encounter Visit Diagnoses Diagnosis Vitamin D deficiency documented in this encounter Additional Health Concerns Assessment Noted Time PHQ-9 Depression Total Score: 1 04/23/20 19 9:11 AM EST documented as of this encounter Care Teams Compensation Vice President Relationship Specialty Start Date End Date Alexus Stafford DO [address] [place] [address] PCP - General Internal Medicine 01/07/20 Lotus Adkins MD [address] [place] [address] Consulting Physician Internal Medicine 05/12/18 Oscar Maynard DO [address] [place] [address] Advanced Heart Failure/Transplant 08/07/20 Keiko Wiseman MD [facility] [address] [place] [id number] Family Medicine 03/02/21 Samaria Agrawal, Pharmacist [address] [place] [address] Pharmacist 03/02/21 10/29/24 Jessica Perez [place] Ophthalmology 05/16/18 documented as of this encounter
--- OUTSIDE RECORDS SUMMARY | 2024-11-05 22:21 | XMS_ITS | Encounter Summary ---
Author Organization [facility] Address [address] [place] [address] Care Team Providers Care Upholstery Tech Name Role Phone Lotus Adkins MD Unavailable [phone] Alexus Stafford DO Primary Care Provider [phone] Oscar Maynard DO Unavailable [phone] Keiko Wiseman MD Unavailable Reason for Visit * Reason Onset Date Comments Diabetes 10/30/2024 Encounter Details Date Type Department Care Team (Late st Contact Info) Description 10/30/2024 Telephone [facility] Physicians - Primary Care, [place] [address], [place] [address] Samaria Agrawal, Pharmacist [address] [place] [address] Diabetes Social History Tobacco Use Types Packs/Day Years [...] encounter Miscellaneous Notes * Telephone Encounter - Samaria Agrawal Pharmacist - 10/30/2024 2:49 PM EDT PharmD signing off from DM. Has been 9 months since has been seen by pharmacist d/t transportation and needing to coordinate w/ PCP appt. PharmD will be on leave by next PCP appt. Will have pt f/u with PCP. documented in this encounter Plan of Treatment Upcoming Encounters Date Type Department Care Team (Late st Contact Info) Description 12/28/2024 4:10 PM EDT Appointment [facility] Physicians - Primary Care, [place] [address] [place] [address], [place] [address] Alexus Stafford DO 1954 [facility] [place] [address] 01/11/2025 9:40 AM EDT Appointment [facility] Physicians - Heart & Vascular, [address] [place] [address] Oscar Maynard DO 1954 [facility]. [address] [place] [address] documented as of this encounter Visit Diagnoses Not on filedocumented in this encounter Additional Health Concerns Assessment Noted Time PHQ-9 Depression Total Score: 1 04/23/20 19 9:11 AM EST documented as of this encounter Care Teams Upholstery Tech Relationship Specialty Start Date End Date Alexus Stafford DO 1954 [facility] [address] [place], [place] [id number] PCP - General Internal Medicine 01/07/20 Lotsu Adkins MD [address] [place] [address] Consulting Physician Internal Medicine 05/12/18 Oscar Maynard DO [address] [place] [address] Advanced Heart Failure/Transplant 08/07/20 Keiko Wiseman MD [address] [address] Family Medicine 03/02/21 Chan-Tommy Perez [place] Ophthalmology 05/16/18 documented as of this encounter
--- OUTSIDE RECORDS SUMMARY | 2024-11-05 22:21 | XMS_ITS | Encounter Summary ---
Author Organization [facility] Address [address] [place] [address] Care Team Providers Care Supervisor Rod Placing Name Role Phone Lotus Adkins MD Unavailable [phone] Alexus Stafford DO Primary Care Provider [phone] Oscar Maynard DO Unavailable [phone] Keiko Wiseman MD Unavailable Samaria Agrawal Pharmacist Unavailable +- [phone] Gloria Kinney RN Unavailable Reason for Visit * Reason Comments Medications Refill Encounter Details Date Type Department Care Team (Late st Contact Info) Description 01/17/2023 Refill [facility] Physicians - Primary Care, [place] 1954 [facility] [address] [place] [id number] Alexus Stafford DO 1954 [facility] [place] [address] Medications Refill Social History Tobacco Use Types [...] Description 12/28/2024 4:10 PM EDT Appointment [facility] Physicians - Primary Care, [place] [address] [facility] [place] [address] Alexus Stafford DO 1954 [facility] [place] [address] 01/11/2025 9:40 AM EDT Appointment [facility] Physicians - Heart & Vascular, [place] [address] [place] [address] [place] [facility] [place] [id number] Oscar Maynard DO [address] [place] [address] documented as of this encounter Visit Diagnoses Diagnosis Type 2 diabetes mellitus with chronic kidney disease, with long-term current use of insulin, unspecified CKD stage ([facility]) documented in this encounter Additional Health Concerns Assessment Noted Time PHQ-9 Depression Total Score: 1 04/23/20 19 9:11 AM EST documented as of this encounter Care Teams Supervisor Rod Placing Relationship Specialty Start Date End Date Alexus Stafford DO [address] [place] [address] [place], [place] [id number] PCP - General Internal Medicine 01/07/20 Lotus Adkins MD [address] [place] [address] Consulting Physician Internal Medicine 05/12/18 Oscar Maynard DO [address] [place] [address] Advanced Heart Failure/Transplant 08/07/20 Keiko Wiseman MD [address] [place] [address] Family Medicine 03/02/21 Samaria Agrawal, Pharmacist [address] [place] [address] Pharmacist 03/02/21 10/29/24 Gloria Kinney, ALEXSANDRA [address] [place], [place] [address] Behavioral Technician 04/21/22 03/30/23 JESSIE Gavin Ophthalmology 05/16/18 documented as of this encounter
--- OUTSIDE RECORDS SUMMARY | 2024-11-05 22:22 | XMS_ITS | Encounter Summary ---
Author Organization [facility] Address [address] [place] [address] Care Team Providers Care Manufacturing Manager Name Role Phone Izzy Morrell RN Unavailable [phone] Lotus Adkins MD Unavailable [phone] Jaymie Brower MD Primary Care Provider + [phone] Alexus Stafford DO Primary Care Provider [phone] Oscar Maynard DO Unavailable [phone] Keiko Wiseman MD Unavailable Samaria Agrawal Pharmacist Unavailable + [phone] Gloria Kinney RN Unavailable Reason for Visit * Reason Comments Medications Refill Encounter Details Date Type Department Care Team (Late st Contact Info) Description 07/19/2018 Refill [facility] Physicians - Primary Care, [place] [address] [place], [place] [address] Rao Swift MD [place], [place] [id number] Medications Refill Social History Tobacco Use Types Packs/Day Years Used Date Smoking Tobacco: Former Cigarettes Q uit: 04/25/1982 Smokeless Tobacco: Never Alcohol Use Standard Drinks/Week Comments No 0 (1 standard drink = 0.6 oz pur e alcohol) Comments No Sex and Gender Information Value Date Recorded Sex Assigned at Not on file Legal Sex Female 7:23 PM EST Gender Identity Not on file Sexual Orientation Not on file documented as of this encounter Miscellaneous Notes * Telephone Encounter - Gertrude Hernandez RMA - 07/19/2018 4:11 PM EDT Last Office Visit and Type 05/19/18 for four month check up Next Office Visit and Type 08/17/18 for three month check up Labs Needed N Orders on file N documented in this encounter Plan of Treatment Upcoming Encounters Date Type Department Care Team (Late st Contact Info) Description 12/28/2024 4:10 PM EDT Appointment [facility] Physicians - Primary Care, [place] [address] [place] [address] Alexus Stafford DO 1954 [place] [place] [place] [address] 01/11/2025 9:40 AM EDT Appointment [facility] Physicians - Heart & Vascular, [place] [facility] [address] [place] [facility] [address] Oscar Maynard DO [address] [facility] [place] [address] documented as of this encounter Visit Diagnoses Not on filedocumented in this encounter Additional Health Concerns Assessment Noted Time PHQ-9 Depression Total Score: 1 02/18/20 18 2:02 PM EDT documented as of this encounter Care Teams Manufacturing Manager Relationship Specialty Start Date End Date Jaymie Brower MD [facility] [address] [facility] [place] [address] PCP - General Internal Medicine 05/19/18 01/06/20 Alexus Stafford DO [facility] [address] [place] [address] PCP - General Internal Medicine 01/07/20 Izzy Morrell, RN [address] [place] [address] Factory Assembler 01/25/17 06/07/19 Lotus Adkins MD [address] [place] [address] Consulting Physician Internal Medicine 05/12/18 Oscar Maynard DO [address] [place] [address] Advanced Heart Failure/Transplant 08/07/20 Keiko Wiseman MD [address] [place] [place] [address] Family Medicine 03/02/21 Samaria Agrawal, Pharmacist [address] [place] [place] [address] Pharmacist 03/02/21 10/29/24 Gloria Kinney RN [address] [place], [place] [id number] Factory Assembler 04/21/22 03/30/23 [facility] [place] Ophthalmology 05/16/18 documented as of this encounter
--- OUTSIDE RECORDS SUMMARY | 2024-11-05 22:22 | XMS_ITS | Encounter Summary ---
Author Organization [facility] Address [address] [place] [address] Care Team Providers Care Delivery Representative Name Role Phone Lotus Adkins MD Unavailable [phone] Alexus Stafford DO Primary Care Provider [phone] Oscar Maynard DO Unavailable [phone] Keiko Wiseman MD Unavailable Samaria Agrawal Pharmacist Unavailable [phone]- [phone] Gloria Kinney RN Unavailable Reason for Visit * Reason Comments Med Change Request Encounter Details Date Type Department Care Team (Late st Contact Info) Description 09/13/2022 Refill [facility] Physicians - Primary Care, [place] 1954 [facility] [address] [place] [id number] Alexus Stafford DO 1954 [facility] [address] Med Change Request Social History Tobacco Use [...] Exposure Response Date Recorded In the last 10 days, have yo u been in contact with someone who was confirmed or suspected to have Coronavirus/COVID-19? No / Unsure 08/27/2022 12:40 PM EDT documented as of this encounter Plan of Treatment Upcoming Encounters Date Type Department Care Team (Late st Contact Info) Description 12/28/2024 4:10 PM EDT Appointment [facility] Physicians - Primary Care, [place] [address], [address] [place], [place] [phone] Alexus Stafford DO 1954 [facility] [place] [address] 01/11/2025 9:40 AM EDT Appointment [facility] Physicians - Heart & Vascular, [facility] [address] [facility] [place] [place] [address] Oscar Maynard DO [address] [place] [address] documented as of this encounter Visit Diagnoses Diagnosis Type 2 diabetes mellitus with chronic kidney disease, with long-term current use of insulin, unspecified CKD stage ([facility]) documented in this encounter Additional Health Concerns Assessment Noted Time PHQ-9 Depression Total Score: 1 04/23/20 19 9:11 AM EST documented as of this encounter Care Teams Delivery Representative Relationship Specialty Start Date End Date Alexus Stafford DO [address] [facility] [place] [address] [place], [place] [id number] PCP - General Internal Medicine 01/07/20 Lotus Adkins MD [address] [place] [address] Consulting Physician Internal Medicine 05/12/18 Oscar Maynard DO [address] [place] [address] Advanced Heart Failure/Transplant 08/07/20 Keiko Wiseman MD [address] [place] [address] Family Medicine 03/02/21 Samaria Agrawal, Pharmacist [address] [place] [address] Pharmacist 03/02/21 10/29/24 Gloria Kinney, ALEXSANDRA [address] [place] [address] Belt Builder 04/21/22 03/30/23 JESSIE Gavin Ophthalmology 05/16/18 documented as of this encounter
--- OUTSIDE RECORDS SUMMARY | 2024-11-05 22:22 | XMS_ITS | Encounter Summary ---
Author Organization [facility] Address [address] [place] [address] Care Team Providers Care Loading Supervisor Name Role Phone Lotus Adkins MD Unavailable [phone] Alexus Stafford DO Primary Care Provider [phone] Oscar Maynard DO Unavailable [phone] Keiko Wiseman MD Unavailable Samaria Agrawal Pharmacist Unavailable [phone]- [phone] Gloria Kinney RN Unavailable Reason for Visit * Reason Comments Medications Refill Encounter Details Date Type Department Care Team (Late st Contact Info) Description 03/23/2021 Refill [facility] Physicians - Primary Care, [place] 1954 [facility] D [place] [id number] Alexus Stafford DO 1954 [place] [address] Medications Refill Social History Tobacco Use Types [...] have Coronavirus / COVID-19? No / Unsure 03/02/2021 1:07 PM EST documented as of this encounter Miscellaneous Notes * Telephone Encounter - Angela Casiano RMA - 03/23/2021 1:36 PM EST Requested Prescriptions Pending Prescriptions Disp Refills ??? furosemide (LASIX) 40 mg tablet [Pharmacy Med Name: FUROSEMIDE 40 MG TABLET] 90 Tablet 1 Sig: TAKE 1 TABLET BY MOUTH DAILY NEEDED Last PE or Check up 01/29/21 Next PE or Check up 05/01/21 Pending labs on file- No We just filled 11/27 for 90 days with refill documented in this encounter Plan of Treatment Upcoming Encounters Date Type Department Care Team (Late st Contact Info) Description 12/28/2024 4:10 PM EDT Appointment [facility] Physicians - Primary Care, [address], [place] [address] Alexus Stafford [address] [place] [facility] [place] [address] 01/11/2025 9:40 AM EDT Appointment [facility] Physicians - Heart & Vascular, [place] [address] [facility] [place] [address] Oscar Maynard DO [address] [facility] [address] [place] [address] documented as of this encounter Visit Diagnoses Not on filedocumented in this encounter Additional Health Concerns Assessment Noted Time PHQ-9 Depression Total Score: 1 04/23/20 9:11 AM EST documented as of this encounter Care Teams Loading Supervisor Relationship Specialty Start Date End Date Alexus Stafford DO 1954 [facility] [address] [place], [place] [id number] PCP - General Internal Medicine 01/07/20 Lotus Adkins MD [address] [place] [id number] Consulting Physician Internal Medicine 05/12/18 Oscar Maynard DO [address] [place] [facility]. [address] [place] [address] Advanced Heart Failure/Transplant 08/07/20 Keiko Wiseman MD 1954 [facility] [place] [address] Family Medicine 03/02/21 Samaria Agrawal, Pharmacist 1954 [facility] [place] [address] Pharmacist 03/02/21 10/29/24 Gloria Kinney, ALEXSANDRA [address] [place] [address] Training Project Manager 04/21/22 03/30/23 Jessica Perez [place] Ophthalmology 05/16/18 documented as of this encounter
--- OUTSIDE RECORDS SUMMARY | 2024-11-05 22:22 | XMS_ITS | Encounter Summary ---
Author Organization [facility] Address [address] [place] [address] Care Team Providers Care Wastewater Analyst Name Role Phone Lotus Adkins MD Unavailable [phone] Alexus Stafford DO Primary Care Provider [phone] Oscar Maynard DO Unavailable [phone] Keiko Wiseman MD Unavailable Samaria Agrawal Pharmacist Unavailable +- [phone] Reason for Visit * Reason Comments Medications Refill Encounter Details Date Type Department Care Team (Late Contact Info) Description 04/12/2023 Refill [facility] Physicians - Primary Care, [place] 1954 [facility] [place] [address] Alexus Stafford DO 1954 [facility] [place] [address] Medications Refill Social History Tobacco Use Types [...] Description 12/28/2024 4:10 PM EDT Appointment [facility] Physicians - Primary Care, [place] 1954 [facility], [address] [place] [address] Alexus Stafford DO 1954 [facility] [place] [place] [address] 01/11/2025 9:40 AM EDT Appointment [facility] Physicians - Heart & Vascular, [place] 1954 [facility] [place] [id number] Oscar Myanard DO 1954 [facility] [place], [place] [address] documented as of this encounter Visit Diagnoses Diagnosis Type 2 diabetes mellitus with chronic kidney disease, with long-term current use of insulin, unspecified CKD stage ([facility]) documented in this encounter Additional Health Concerns Assessment Noted Time PHQ-9 Depression Total Score: 1 04/23/20 19 9:11 AM EST documented as of this encounter Care Teams Wastewater Analyst Relationship Specialty Start Date End Date Alexus Stafford DO 1954 [facility] [place] [id number] PCP - General Internal Medicine 01/07/20 Lotus Adkins MD [address] [place] [address] Consulting Physician Internal Medicine 05/12/18 Oscar Maynard DO 1954 [facility] [facility], [place] [address] Advanced Heart Failure/Transplant 08/07/20 Keiko Wiseman MD [address] [place] [address] Family Medicine 03/02/21 Samaria Agrawal, Pharmacist [address] [place], [place] [address] Pharmacist 03/02/21 10/29/24 Jessica Perez [place] Ophthalmology 05/16/18 documented as of this encounter
--- OUTSIDE RECORDS SUMMARY | 2024-11-05 22:22 | XMS_ITS | Encounter Summary ---
Author Organization [facility] Address [address] [place] [address] Care Team Providers Care Canine Service Teacher Name Role Phone Lotus Adkins MD Unavailable [phone] Alexus Stafford DO Primary Care Provider [phone] Oscar Maynard DO Unavailable [phone] Keiko Wiseman MD Unavailable Samaria Agrawal Pharmacist Unavailable +- [phone] Gloria Kinney RN Unavailable Reason for Visit * Reason Comments Medications Refill Encounter Details Date Type Department Care Team (Late st Contact Info) Description 08/22/2021 Refill [facility] Physicians - Primary Care, [place] [address] [place] [address] Alexus Stafford DO 1954 [facility] [place], [place] [id number] Medications Refill Social History Tobacco Use Types [...] suspected to have Coronavirus/COVID-19? No / Unsure 08/06/2021 10:41 AM EDT documented as of this encounter Miscellaneous Notes * Telephone Encounter - Alexus Stafford DO - 08/24/2021 8:04 AM EDT BMP, Hgb A1c ordered. Thanks, MR * Telephone Encounter - Leticia Jacques - 08/23/2021 7:43 PM EDT Do you want additional labs for WEd done prior? Thanks. * Telephone Encounter - Leticia Jacques - 08/23/2021 7:40 PM EDT Requested Prescriptions Pending Prescriptions Disp Refills ??? Dexcom G6 Transmitter [Pharmacy Med Name: DEXCOM G6 TRANSMITTER] 1 Each Si EACH ONCE. Last PE or Check up May ck up Next PE or Check up August 27 PE Pending labs on file- Had labs in may, not full panel. documented in this encounter Plan of Treatment Upcoming Encounters Date Type Department Care Team (Late st Contact Info) Description 12/28/2024 4:10 PM EDT Appointment [facility] Physicians - Primary Care, [place] [address], [place] [address] Alexus Stafford DO 1954 [facility] [place] [address] 01/11/2025 9:40 AM EDT Appointment [facility] Physicians - Heart & Vascular, [place] 1954 [facility] E [facility] [place] [phone] Oscar Maynard DO [address] [place], [place] [id number] documented as of this encounter Visit Diagnoses Diagnosis Type 2 diabetes mellitus with stage 3a chronic kidney disease, with long-term current use of insulin ([facility])- Primary documented in this encounter Additional Health Concerns Assessment Noted Time PHQ-9 Depression Total Score: 1 04/23/20 19 9:11 AM EST documented as of this encounter Care Teams Canine Service Teacher Relationship Specialty Start Date End Date Alexus Stafford DO 1954 [facility] D [place], [place] [phone] PCP - General Internal Medicine 01/07/20 Lotus Adkins MD [address] [place] [address] Consulting Physician Internal Medicine 05/12/18 Oscar Maynard DO [address] [place], [place] [address] Advanced Heart Failure/Transplant 08/07/20 Keiko Wiseman MD [address] [place] [address] Family Medicine 03/02/21 Samaria Agrawal Pharmacist [address] [facility] [place] [address] Pharmacist 03/02/21 10/29/24 Gloria Kinney, ALEXSANDRA [address] [place], [place] [id number] Investment Trader 04/21/22 03/30/23 [facility] St[facility] Perez, JESSIE Ophthalmology 05/16/18 documented as of this encounter
--- OUTSIDE RECORDS SUMMARY | 2024-11-05 22:22 | XMS_ITS | Clinical Summary ---
Author Organization [facility] Address [address] [place] [address] Care Team Providers Care Able Bodied Tankerman Name Role Phone Lotus Adkins MD Unavailable [phone] Alexus Stafford DO Primary Care Provider Oscar Maynard DO Unavailable [phone] Keiko Wiseman MD Unavailable Allergies Active Allergy Reactions Criticality Noted Date Comments Codeine High 10/01/2019 Other Reaction(s): S-DIFF. BREATHING Sertraline Other (See Comments) 11/16/2018 Nightmares and panic attacks Shaking and diaphoresis Medications fluticasone (FLONASE) 50 mcg/actuation nasal spray [place] 1 [place] into nose 2 times daily. 1 Bottle 6 014 Active SURE COMFORT INSULIN SYRINGE 1 mL 29 x 1/2 Syringe USE DIRECTED Rfs rem 01 BY 08/03/14 100 Syringe 6 015 Active aspirin 81 mg Tablet, Delayed Release (E.C.) Take 81 mg by mouth daily. Active Insulin Gleason, Disposable, (SPECIFIC FOR PEN) needles Use with insulin pen 5 Each 5 017 Active Blood-Glucose Meter MiscIndications:T ype 2 diabetes mellitus with chronic kidney disease, with long-term current use of insulin, unspecified CKD stage ([facility]) Use 1 Each as instructed 2 times daily. Dx:Type 2 Diabetes uncontrolled E.11.65. Substitutions allowed. 1 Each 06/28/2 021 Active glucose blood test strips (Blood Glucose Test) StripIndications: Type 2 diabetes mellitus with chronic kidney disease, with long-term current use of insulin, unspecified CKD stage ([facility]) Use 1 Strip as instructed 2 times daily. Dx:Type 2 Diabetes uncontrolled E.11. Substitutions allowed. 180 Strip 1 Active Lancets MiscIndications:T ype 2 diabetes mellitus with chronic kidney disease, with long-term current use of insulin, unspecified CKD stage ([facility]) Use 1 Each as instructed 2 times daily. Use to test blood sugar. Dx: Type 2 Diabetes uncontrolled E.11 100 Each 2 Active Lancing Device with Lancets KitIndications:Ty pe 2 diabetes mellitus with chronic kidney disease, with long-term current use of insulin, unspecified CKD stage ([facility]) Use 1 Each as instructed 2 times daily. Use to test blood sugar. Dx: Type 2 Diabetes uncontrolled E. 1 Kit Active Alcohol Swabs Pads, MedicatedIndicati ons:Type 2 diabetes mellitus with chronic kidney disease, with long-term current use of insulin, unspecified CKD stage ([facility]) Use 1 Each as instructed 2 times daily. Use to test blood sugar. Diagnosis for use: Type 2 Diabetes uncontrolled E. 100 Each 2 Active Melatonin 3 mg Tablet Take 5 mg by mouth nightly as needed. Active mupirocin (BACTROBAN) 2 % ointmentIndicatio ns:Folliculitis Apply to affected areas 2-3 times a day for 10-14 days. 30 g 1 021 Active losartan (COZAAR) 100 mg TabletIndications :Essential hypertension TAKE 1 TABLET BY MOUTH EVERY DAY 90 Tablet 1 023 Active insulin glargine (Basaglar) 100 unit/mL KwikpenIndication s:Controlled type 2 diabetes mellitus without complication, with long-term current use of insulin INJECT 12 UNITS BY SUBCUTANEOUS ROUTE NIGHTLY AT BEDTIME. 9 mL 3 024 Active cyanocobalamin, Vitamin B-12, 500 mcg TabletIndications :Low serum vitamin B12 TAKE 2 TABLETS (1,000 MCG) BY MOUTH DAILY. 180 Tablet 2 024 Active BD Ainsley 2nd Gen Pen Needle 32 gauge x 5/32 Indications: Type 2 diabetes mellitus with chronic kidney disease, with long-term current use of insulin, unspecified CKD stage ([facility]) USE WITH INSULIN PEN DIRECTED 100 Each 2 024 Active carvediloL (COREG) 6.25 mg TabletIndications :Primary hypertension TAKE 1 TABLET BY MOUTH 2 TIMES DAILY 180 Tablet 1 025 Active amLODIPine (NORVASC) 10 mg tablet Take 1 Tablet (10 mg) by mouth daily. 90 Tablet 3 025 Active esomeprazole (NexIUM) 20 mg Capsule, Delayed Release(E.C.)Estefany cations:Gastroeso phageal reflux disease with esophagitis, unspecified whether hemorrhage TAKE 1 CAPSULE BY MOUTH EVERY DAY 90 Capsule 1 025 Active rosuvastatin (CRESTOR) 20 mg TabletIndications :Type 2 diabetes mellitus with chronic kidney disease, with long-term current use of insulin, unspecified CKD stage ([facility]),Hyperlipidem ia, unspecified hyperlipidemia type TAKE 1 TABLET BY MOUTH EVERY DAY IN THE EVENING 90 Tablet 1 025 Active traZODone (DESYREL) 50 mg tabletIndications :Other insomnia,Anxiety, Other depression TAKE 1 TABLET BY MOUTH EVERY DAY AT NIGHT 90 Tablet 1 025 Active Blood-Glucose Sensor (Dexcom G6 Sensor)Indication s:Type 2 diabetes mellitus with stage 3a chronic kidney disease, with long-term current use of insulin ([facility]) Apply 1 Each every 10 days. 3 Each 11 025 Active Blood-Glucose Transmitter (Dexcom G6 Transmitter)Indic ations:Type 2 diabetes mellitus with stage 3a chronic kidney disease, with long-term current use of insulin ([facility]) USE DIRECTED 1 Each 4 025 Active Cholecalciferol, Vitamin D3, 50 mcg (2,000 unit) TabletIndications :Vitamin D deficiency TAKE 1 TABLET BY MOUTH EVERY DAY 90 Tablet 2 025 Active Farxiga 10 mg Tablet tabletIndications :Type 2 diabetes mellitus with chronic kidney disease, with long-term current use of insulin, unspecified CKD stage ([facility]) TAKE 1 TABLET BY MOUTH EVERY DAY 90 Tablet 1 025 Active Januvia 100 mg TabletIndications :Type 2 diabetes mellitus with stage 3a chronic kidney disease, with long-term current use of insulin ([facility]) TAKE 1 TABLET BY MOUTH EVERY DAY 90 Tablet 1 025 Active valsartan (DIOVAN) 320 mg Tablet Take 1 Tablet by mouth in the morning. 90 Tablet 3 025 2025 Active Januvia 100 mg TabletIndications :Type 2 diabetes mellitus with stage 3a chronic kidney disease, with long-term current use of insulin ([facility]) TAKE 1 TABLET BY MOUTH EVERY DAY 90 Tablet 1 024 2024 Discontinued valsartan (DIOVAN) 320 mg Tablet Take 1 Tablet by mouth daily. 90 Tablet 1 025 2024 Discontinued Active Problems Problem Noted Date Diagnosed Date MCI (mild cognitive impairment) 02/07/2023 Recurrent falls 02/07/2023 Vitamin D insufficiency 03/31/2022 Bilateral carpal tunnel syndrome 10/30/2021 01/27/2023 Overview (01/27/2023): Added automatically from request for surgery [id number] Trigger index finger of right hand 10/30/2021 01/27/2023 Overview (01/27/2023): Added automatically from request for surgery [id number] Chronic neck pain 08/03/2021 Overview (08/03/2021): X-rays ordered, encouraged PT- will see where can get close to home. Chronic bilateral low back pain without sciatica 08/02/2021 Overview (08/02/2021): Previously on norco which she discontinued on her own- will remain off. Tried duloxetine w/out any improvement. Tried tramadol w/out improvement X-rays w/out acute abnl- was referred to PT- was to find location near her home Unintentional weight loss 08/02/2021 Overview (08/03/2021): 01/2020 162 lbs, 01/2021: 147 lbs 07/2021: 137lbs. Due for mammogram (on HRT per [facility]), EGD for hx of dillard's, colonoscopy (there are no records of previous CRC- was encouraged to make appt w/ Dr. Adkins)--> has not done. Imaging ordered due to continued loss 07/2021 Carotid artery plaque, left 06/04/2021 Overview (08/02/2021): Vascular doppler 05/2021: Conclusions: There is no evidence of visible plaque or measurable stenosis in the right internal carotid artery. Estimated diameter reduction of the left internal carotid artery is less than 50%. The bilateral common and external carotid arteries reveal no significant stenosis. The bilateral vertebral arteries are patent with antegrade flow. The bilateral subclavian arteries reveal no evidence of significant stenosis. There has been no significant change from the previous study of 07/18/2015. Recurrent major depressive d isorder, in full remission ([facility]) 06/16/2020 Overview (08/02/2021): Only prn trazodone- feels doing well. Was on valium in past Smokes marijuana routinely Chest pain with normal coronary angiography 06/23 Overview (07/07/2019): 04/2019 Dr Maynard Assessment & Plan (04/14/2023 1:17 PM EST): History of chest pain-evaluated with coronary angiography April 2019 due to her risk factors and she has no significant CAD. Assessment & Plan (04/08/2022 2:01 PM EST): History of chest pain-evaluated with coronary angiography April 2019 due to her risk factors and she has no significant CAD. Assessment & Plan (10/20/2021 8:24 AM EDT): History of chest pain-evaluated with coronary angiography April 2019 due to her risk factors and she has no significant CAD. Assessment & Plan (02/10/2021 1:33 PM EDT): History of chest pain-evaluated with coronary angiography April 2019 due to her risk factors and she has no significant CAD. -->lipid profile then calculate ASCVD risk Assessment & Plan (08/07/2020 2:16 PM EDT): History of chest pain-evaluated with coronary angiography April 2019 due to her risk factors and she has no significant CAD Hormone replacement therapy 04/23/2019 Overview (08/03/2021): Per [facility]- dr. Aundrea [place], [facility] Have discussed discontinuation of this given age - reported stopped taking 07/2021 Urinary incontinence 04/23/2019 Other osteoporosis without current pathological fracture 04/22/2019 Overview (05/13/2023): DEXA 04/2023: osteoporosis Dr. Aundrea [place], [facility] DEXA 10/2019: osteopenia CKD (chronic kidney disease) 08/20/2018 Anxiety 06/07/2018 Chronic bilateral back pain, unspecified back lo cation 11/26/2015 Surgical menopause 06/26/2014 VIVIAN (obstructive sleep apnea) 10/05/2013 Allergic rhinitis 10/05/2013 Overview (07/16/2016): Replaced inactive diagnosis term via diagnosis import Obesity 08/15/2013 RLS (restless legs syndrome) 08/15/2013 Insomnia 08/15/2013 Overview (08/03/2021): On trazodone 50mg qhs prn- encouraged to take nightly. 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 Adkins 11/2014: Dillard's esophagus Has not repeat EGD since- has been encouraged to make appt GERD (gastroesophageal reflux disease) 3 Type 2 diabetes mellitus wit h stage 3a chronic kidney disease, with long-term current use of insulin ([facility]) 10/13/2012 Overview (08/02/2021): farxiga 5mg daily, lantus 10u qhs DEXCOM Essential hypertension 10/13/2012 Assessment & Plan (04/14/2023 1:16 PM EST): Currently at goal -->continue amlodipine to 10mg daily -->continue losartan 100mg daily -->continue carvedilol 6.25mg bid Assessment & Plan (04/08/2022 2:01 PM EST): Currently at goal -->continue amlodipine to 10mg daily -->continue losartan 100mg daily -->continue carvedilol 6.25mg bid Assessment & Plan (10/20/2021 8:23 AM EDT): Currently at goal -->continue amlodipine to 10mg daily -->continue losartan 100mg daily -->continue carvedilol 6.25mg bid Assessment & Plan (02/10/2021 1:32 PM EDT): Currently not at goal -->continue amlodipine to 10mg daily -->continue losartan 100mg daily -->start carvedilol 6.25mg bid Assessment & Plan (08/07/2020 2:15 PM EDT): Currently not at goal -->increase amlodipine to 10mg daily -->continue losartan 100mg daily Dupuytren contracture 08/25/2011 Overview (09/15/2020): Left hand Hyperlipidemia Resolved Problems Problem Noted Date Diagnosed Date Resolved Date Elevated hematocrit 03/31/2022 03/31/20 22 Immunization due 01/17/2020 06/04/2021 Long-term use of high-risk medication 01/17/2020 06/04/2021 Precordial chest pain 05/14/20192019 Dillard's esophagus 10/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 01/01/20 14 Encounter for long-term (cur rent) use of other medications 10/13/2012 04/22/2019 DDD (degenerative disc disease) 10/13/2012 08/20/2018 Back pain 10/13/2012 08/17/2018 Encounters Date Type Department Care Team Description 10/30/2024 Telephone [facility] Primary Care, [place] [address] [place] [address] Samaria Agrawal, Pharmacist Diabetes 10/29/2024 Refill [facility], [facility] [address] [place] [address] [place] [address] Oscar Maynard, DO Medications Refill 10/07/2024 Refill [facility] [email or web address]], [address] [place] [address] Alexus Stafford, DO Medications Refill 10/01/2024 Refill [facility] [email or web address]], [address] [place] [address] Alexus Stafford, DO Medications Refill 09/18/2024 Refill [facility] [email or web address]], [address] [place] [address] Alexus Stafford, DO Med Change Request 09/05/2024 Refill [facility] [email or web address]], [address] [place] [address] Alexus Stafford, DO Medications Refill 08/24/2024 Refill [facility] [email or web address]], [address] [place], [place] [id number] Alexus Stafford, DO Medications Refill (Will need this sent in today. ) from Last 3 Months Immunizations Immunization Administration Dates Next Due Covid19 Sars-Cov-2 Vaccine 1 2+yrs Old (PFIZER) 04/14/2021 [id number] Vaccine 1 2+YRS Old (PFIZER Purple) 08/15/2020,07/25/2020 Influenza 01/17/2020, 9,05/19/2018,03/03 Influenza (whole) 02/27/2010 Influenza, High Dose Seasona l, Preservative Free (Fluzone HD 65yrs and over) 03/29/2024,01/17/2023,01/22/2022,01/29 Pfizer COVID 12+yrs 01/17/2023 Pneumococcal Conjugate 13 va lent (PREVNAR) 07/06/2019 Pneumococcal Polysaccharide 23 Valent (PNEUMOVAX) 05/19/2018 RSV (60+YRS,IM) AREXVY 03/29/2024 Rabies 06/28/2019, 0,06/21/2019,06/14 Tdap 06/08/2019 Zoster-RZV(Shingrix) 01/18/2020,04/26/2019 Family History Medical History Relation Name Comments Hyperlipidemia Brother 2 sylvia COPD Brother 3 paco Other Brother 4 joanna got hit by a tr ain Diabetes Father joanna Lung Cancer Father joanna Diabetes Mother ihsan may Lung Cancer Mother ihsan august No Known Problems Sister 1 gurpreet No Known Problems Sister 2 vangie Heart Disease Sister 3 ronald Lung Cancer Sister 3 ronald Diabetes Sister 4 fernando No Known Problems Son 1 chtio No Known Problems Son 2 marky Relation Name Status Comments Brother 1 vitaly Brother 2 sylvia Alive Brother 3 paco Alive Brother 4 joanna Brother 5 joseline Alive Father joanna Mother ihsan kern Sister 1 gurpreet Alive Sister 2 vangie Alive Sister 3 ronald Sister 4 fernando Alive Son 1 chito Alive Son 2 marky Alive Social History Tobacco Use Types Packs/Day Years Used Date Smoking Tobacco: Former Cigarettes Q uit: 04/25/1982 Smokeless Tobacco: Never Tobacco Cessation:Counseling Given: No Alcohol Use Standard Drinks/Week Comments Yes 0 [...] on file Sexual Orientation Not on file Last Filed Vital Signs Vital Sign Reading Time Taken Comments Blood Pressure 136/80 05/11/2024 2:06 PM EST Pulse 89 05/11/2024 2:06 PM EST Temperature 36.6 C (97.8 F) 03/19/2024 3:21 PM EST Respiratory Rate 16 12/12/2023 3:21 PM EDT Oxygen Saturation 97% 03/19/2024 3:21 PM EST Inhaled Oxygen Concentration - - Weight 61.7 kg (136 lb) 05/11/2024 2:06 PM EST Height 160 cm (5' 3 ) 05/11/2024 2:06 PM EST Body Mass Index 24.09 05/11/2024 2:06 PM EST Plan of Treatment Upcoming Encounters Date Type Department Care Team (Late st Contact Info) Description 12/28/2024 4:10 PM EDT Appointment [facility] - Primary Care, [place] [address], [place] [address] Alexus Stafford DO [address] [facility] [place] [place] [address] [place] [address] 01/11/2025 9:40 AM EDT Appointment [facility] - Heart & Vascular, [facility] [address] [facility] [place] [place] [id number] Oscar Maynard DO [address] [facility] [address] [place] [address] Health Maintenance Due Date Last Done Comments Cologuard 1950 FIT 1950 Diabetes Mellitus Eye Exam (Yearly) 08/20/2022 08/20/2021, 01/05/2018, 03/25/2015 COVID-19 Vaccine (2023-2 5 season) 2023 01/17/2023, 04/14/2021, 08/15/2020, Additional history exists Diabetes Mellitus Microalbum in (Yearly) 01/28/2024 01/27/2023, 03/29/2022, 01/29/2021, Additional history exists (Reporting Purposes Only) Calendar Year Medicare Annual Wellness (AWV) 04/25/2024 03/19/2024, 01/27/2023, 06/16/2020, Additional history exists Advance Care Planning 04/25/2024 03/19/2024, 023 Depression Screening 04/25/2024 04/29/2023, 04/23/2019, 02/17/2018, Additional history exists Breast Cancer Screening 05/09/2024 05/09/19 24, 11/26/2019, 11/23/2019, Additional history exists Diabetes Mellitus Foot Care (Yearly) 06/22/2024 06/22/2023, 02/17/2018, 10/18/2016 (Patient/Parent/Guardian Counseled and Declines) Diabetes A1c Monitoring 09/16/2024 03/19/20 24, 10/31/2023, 07/29/2023, Additional history exists Influenza Vaccination (#1) 12/24/202403/29, 01/17/2023, 01/22/2022, Additional history exists Fall Risk Assessment 03/19/2025 03/19/2024, 04/23/2019, 04/23/2019 Lipid Monitoring 03/19/2025 03/19/2024, 08/2021, 03/02/2021, Additional history exists Renal Monitoring 03/19/2025 03/19/2024, 11/2023, 07/29/2023, Additional history exists Annual Adult Preventive Visi t for Contract Coordination 05/12/2025 05/11/2024, 03/19/2024, 03/19/2024, Additional history exists Annual Visit for Contract Coordination ([employer]) 05/12/2025 05/11/2024, 03/19/2024, 12/12/2023, Additional history exists Colonoscopy 07/21/2027 07/20/2017 (Patient/Parent/Guardian Counseled and Declines), 04/25/2001 Colorectal Cancer Screening 07/21/2027 Osteoporosis Screening 05/09/2028 4, 11/23/2019, 11/17/2017 Tetanus Vaccination (Every 1 0 Years) 06/08/2029 06/08/2019, 04/25/2011 Hepatitis C Virus (HCV) Screening Completed 019 Pneumococcal Vaccine: 50+ Years Completed 0, 05/19/2018 Urine Drug Screening Discontinued 01/12/2020, 10/15/2019, 11/16/2018, Additional history exists Zoster-RZV(Shingrix) Completed 01/21/2020, 01/18/2020, 04/26/2019 Advance Care Planning Discontinued 03/19/2024, 023 Diabetes Mellitus Hemoglobin A1c (Yearly) Discontinued 03/19/2024, 10/31/2023, 07/29/2023, Additional history exists Lipid Screening Discontinued 03/19/2024, 08/2021, 03/02/2021, Additional history exists Influenza Vaccination (Yearly) Discontinued 1 05/30/2023, 01/17/2023, 01/22/2022, Additional history exists RSV Vaccines Completed 03/29/2024 Procedures Procedure Name Priority Date/Time Associated Diagnosis Comments COMPREHENSIVE METABOLIC PANEL Routine 03/19/2024 4:27 PM EST Essential hypertension Type 2 diabetes mellitus with stage 3a chronic kidney disease, with long-term current use of insulin ([facility]) Pure hypercholesterolemia LIPID PROFILE Routine 03/19/2024 4:27 PM EST Pure hypercholesterolemia HGB, A1C (GLYCOHEMOGLOBIN) Routine 03/19/2024 4:27 PM EST Type 2 diabetes mellitus with stage 3a chronic kidney disease, with long-term current use of insulin ([facility]) DXA-DEXA SCAN AXIAL SKELETON Routine 05/09/2023 2:51 PM EST Other osteoporosis without current pathological fracture MAMM-SCREENING W/JAYLON Routine 05/09/2023 2:50 PM EST Encounter for screening mammogram for malignant neoplasm of breast ALBUMIN, URINE CREATININE/RATIO Routine 01/27/2023 2:52 PM EDT Type 2 diabetes mellitus with stage 3a chronic kidney disease, with long-term current use of insulin ([facility]) AMB REFERRAL TO OPHTHALMOLOGY Routine 08/20/2021 UDS FOR CLINICAL DIAGNOSIS Routine 01/12/2020 9:09 AM EDT Long-term use of high-risk medication HEPATITIS C AB WITH REFLEX TO HCV,RNA,QUANT PCR Routine 11/14/2018 9:21 AM EDT Need for hepatitis C screening test from Last 3 Months or Most Recently Relevant to Health Maintenance Results * (ABNORMAL) LIPID PROFILE (03/19/2024 4:27 PM EST) Cholesterol 204(H) 125 - 199 mg/dL [facility] Comment: TOTAL CHOLESTEROL INTERPRETATION: Less than 200 mg/dL Desireable 200-239 mg/dL Borderline Greater or Equal to 240 mg/dL High LDL Calculated 91 0 - 100 mg/dL [facility] Comment: LDL CHOLESTEROL INTERPRETATION: Less than 100 mg/dL Optimal 100-129 mg/dL Near optimal/above optimal 130-159 mg/dL Borderline High 160-189 mg/dL High Greater or Equal to 190 mg/dL Very High HDL 91 40 - 180 mg/dL [facility] Comment: HDL CHOLESTEROL INTERPRETATION: Less than 40 mg/dL Low Greater than 60 mg/dL Desirable Triglycerides 110 0 - 149 mg/dL [facility] Comment: TOTAL TRIGLYCERIDE INTERPRETATION: Less than 150 mg/dL Normal 150-199 mg/dL Borderline HIgh 200-499 mg/dL High Greater or Equal to 500 mg/dL Very High NONHDL Calculated 113 0 - 129 mg/dL [facility] Comment: NON-HDL INTERPRETATION: Less than 130 mg/dL Desirable 130-159 mg/dL Above Desirable 160-189 mg/dL Borderline High 190-219 mg/dL High Greater than or equal to 220 mg/dL Very High Serum (Serum) 03/19/2024 4:2 7 PM EST 03/20/2024 1:47 AM EST us Alexus Stafford DO CHEMISTRY ORDERABLES Final Result [facility] [address] * (ABNORMAL) HGB, A1C (GLYCOHEMOGLOBIN) (03/19/2024 4:27 PM EST) Hgb A1C 7.4(H) 4.0 - 5.6 % [facility] Comment: Reference Ranges for Hgb A1c: Increased risk for diabetes: 5.7-6.4% Probable diabetes: >=6.5% Desired control for previously diagnosed diabetics: <7.0% Many conditions can affect the Hgb A1c value including hemolysis, recent transfusion, hemoglobin variants, thalassemias, severe chronic hepatic and renal disease and iron deficiency among others. Please note that results from this assay are invalid for patients with abnormal amounts of Hemoglobin (HbF). Results must be interpreted in the proper clinical context. This method is certified by the National Glycohemoglobin Standardization program (NGSP) and traceable to DCCT. Estimated Average Glucose 166(H) 68 - 114 mg/dL [facility] Whole Blood 03/19/2024 4:27 PM EST 03/20/2024 1:12 AM EST Alexus Stafford DO CHEMISTRY ORDERABLES Final Result [facility] [address] * (ABNORMAL) COMPREHENSIVE METABOLIC PANEL (03/19/2024 4:27 PM EST) Sodium 138 135 - 146 mmol/L [facility] Potassium 4.6 3.5 - 5.1 mmol/L [facility] Chloride 104 98 - 110 mmol/L [facility] CO2 21(L) 22 - 29 mmol/L [facility] Anion Gap 13 5 - 13 mmol/L [facility] Comment:Anion gap calculatio n does not include potassium (K+) value. BUN 17 7 - 25 mg/dL [facility] Creatinine 1.28(H) 0.50 - 1.20 mg/dL [facility] Glucose 207(H) 71 - 99 mg/dL [facility] Comment:Reference range (71- 99 mg/dL) refers only to fasting samples, and does not apply to non-fasting samples. eGFR CKD-EPI 2020 45 See Note [facility] Comment: eGFR calculated with 2020 CKD-EPI equation using creatinine, patient's age and gender. Other factors, especially muscle mass, may affect accuracy and need to be considered. Patient values should be interpreted as a trend. The reference interval is >60 mL/min/1.73m2. Calcium 10.3 8.5 - 10.5 mg/dL [facility] Total Bilirubin 0.3 0.2 - 1.2 mg/dL [facility] AST 16 0 - 30 U/L [facility] ALT 10 0 - 40 U/L [facility] Alkaline Phosphatase 83 33 - 140 U/L [facility] Total Protein 7.3 6.0 - 8.0 g/dL [facility] Albumin 4.3 3.5 - 5.0 g/dL [facility] Globulin 3.0 2.0 - 3.7 g/dL [facility] Albumin/Globulin Ratio 1.4 1.0 - 2.1 [facility] BUN/Creatinine Ratio 13 [facility] Serum (Serum) 03/19/2024 4:2 7 PM EST 03/20/2024 1:47 AM EST us Alexus Stafford DO CHEMISTRY ORDERABLES Final Result Performing Organization Address City/State/[facility] [place] Co de Phone Number [facility] [address] * ANGI-DEXA SCAN AXIAL SKELETON (05/09/2023 2:51 PM EST) Anatomical Region Laterality Modality Mammography 05/10/2023 4:50 PM EST Impressions 05/10/2023 4:52 PM EST IMPRESSION: The bone mineral density is osteoporotic. Osteopenia location(s) if present: NA. Secondary causes for low bone mass should be considered in patients with osteopenia and osteoporosis. Patients with clinical history or radiographic documented fragility fracture have presumed osteoporosis. All treatments require clinical judgment. WHO (World Health Organization) criteria for post-menopausal females and males over 50: T-score = Standard deviation from young normal controls Z-score = Standard deviation from age match controls Normal = T-score more positive than -1 Osteopenia = T-score -1.1 to -2.4 Osteoporosis =T-score more negative than -2.5 NOF Recommendations: The NOF recommends an adult under the age of 50 needs 1,000 mg of calcium and 400-800 IU of vitamin D daily. Adults 50 and over need 1,200 mg calcium and 800-1,000 IU of vitamin D daily. Effective therapies for the prevention of osteoporosis include bisphosphonates. FRAX Version 3.08 (10 year fracture Risk Assessment): According to NOF and ISCD FRAX applies to untreated postmenopausal women and men ages 40-90 with a hip T-score between -1.1 and -2.4. FRAX is highly dependent on established risk factors. Risk factors not captured in FRAX model include: frailty, falls, vitamin D deficiency, increased bone turnover, interval significant decline in BMD. Patients with a FRAX of greater than 3% in the hip and greater than 20% for major osteoporotic fracture may benefit from medical therapy for osteoporosis. Electronically signed by Adam Royal MD Narrative 05/10/2023 4:52 PM EST EXAM: DEXA INDICATION: Other osteoporosis. Postmenopausal. COMPARISON: None REGION ASSESSED: L Spine (L 1-4): BMD= .802 g/cm2, T-score= -2.2, Z-score= -0.1, %Change = NA% L Hip: BMD= .685 g/cm2, T-score= -2.1, Z-score= -0.6, %Change = NA% L Femoral Neck: BMD= .575 g/cm2, T-score= -2.5, Z-score= -0.6 R Hip: BMD= .708 g/cm2, T-score= -1.9, Z-score= -0.4, %Change = NA% R Femoral Neck: BMD= .614 g/cm2, T-score= -2.1, Z-score= -0.3 FRAX REPORT (WHO 10 Year Fracture Risk Assessment) if applicable: Major Osteoporotic Fracture=NA%, Hip Fracture Risk = NA%, Procedure Note Adam Royal MD - 05/10/2023 EXAM: DEXA INDICATION: Other osteoporosis. Postmenopausal. COMPARISON: None REGION ASSESSED: L Spine (L 1-4): BMD= .802 g/cm2, T-score= -2.2, Z-score= -0.1, %Change =NA% L Hip: BMD= .685 g/cm2, T-score= -2.1, Z-score= -0.6, %Change = NA% L Femoral Neck: BMD= .575 g/cm2, T-score= -2.5, Z-score= -0.6 R Hip: BMD= .708 g/cm2, T-score= -1.9, Z-score= -0.4, %Change = NA% R Femoral Neck: BMD= .614 g/cm2, T-score= -2.1, Z-score= -0.3 FRAX REPORT (WHO 10 Year Fracture Risk Assessment) if applicable: Major Osteoporotic Fracture=NA%, Hip Fracture Risk = NA%, IMPRESSION: The bone mineral density is osteoporotic. Osteopenia location(s) if present: NA. Secondary causes for low bone mass should be considered in patients withosteopenia and osteoporosis. Patients with clinical history orradiographic documented fragility fracture have presumed osteoporosis.All treatments require clinical judgment. WHO (World Health Organization) criteria for post-menopausal females andmales over 50: T-score = Standard deviation from young normal controls Z-score = Standard deviation from age match controls Normal = T-score more positive than -1 Osteopenia = T-score -1.1 to -2.4 Osteoporosis =T-score more negative than -2.5 NOF Recommendations: The NOF recommends an adult under the age of 50needs 1,000 mg of calcium and 400-800 IU of vitamin D daily. Adults 50and over need 1,200 mg calcium and 800-1,000 IU of vitamin D daily.Effective therapies for the prevention of osteoporosis includebisphosphonates. FRAX Version 3.08 (10 year fracture Risk Assessment): According to NOFand ISCD FRAX applies to untreated postmenopausal women and men ages 40-90with a hip T-score between -1.1 and -2.4. FRAX is highly dependent onestablished risk factors. Risk factors not captured in FRAX modelinclude: frailty, falls, vitamin D deficiency, increased bone turnover,interval significant decline in BMD. Patients with a FRAX of greater than3% in the hip and greater than 20% for major osteoporotic fracture maybenefit from medical therapy for osteoporosis. Electronically signed by Adam Royal MD us Alexus Stafford DO IMG DEXA ORDERABLES Final R esult * MAMM-SCREENING W/JAYLON (05/09/2023 2:50 PM EST) Anatomical Region Laterality Modality Bilateral Mammography 05/31/2023 4:32 PM EST Impressions 05/31/2023 4:34 PM EST IMPRESSION: No mammographic evidence of malignancy BI-RADS CATEGORY: 1 - NEGATIVE RECOMMENDATION: Bilateral Follow up mammogram in 1 year If additional imaging and/or biopsy is indicated, [facility] staff will inform the patient of the findings and recommendations, obtain necessary orders from the referring provider, and schedule the patient for appointment as appropriate. Women with heterogeneously dense or extremely dense breast tissue should discuss with their primary care provider whether supplemental breast cancer screening with MRI with and without IV contrast may be indicated. The [employer] recommends annual screening mammography for women of average risk beginning at age 40. Please note that mammography is not 100% accurate in diagnosing breast cancer. A routine clinical breast examination is recommended to correlate with mammographic findings. Any palpable abnormality must be assessed clinically. If the patient has a new or unexplained palpable abnormality, then a diagnostic mammogram and/or breast ultrasound may be indicated. This report was created using voice recognition software. While attempts have been made to review the report as it was transcribed, occasionally the spoken word can be misinterpreted by the technology leading to omissions or inappropriate words, phrases, or numerical values. If there is clinical discordance/ambiguity or other questions or concerns arise, please contact the Radiology Department at [phone]. Signed By: Twyla Sigala MD Narrative 05/31/2023 4:34 PM EST MAMM-SCREENING W/JAYLON REASON FOR EXAM: Breast cancer screening COMPARISON: 11/23/2019-09/28/2016 DENSITY: The breast parenchyma has scattered fibroglandular densities. TECHNIQUE: Digital mammographic and tomosynthesis images were obtained in standard CC and MLO projections. Computer aided detection was utilized. LIMITATIONS: Limited visualization of the caudal aspect of the pectoralis muscles FINDINGS: No suspicious mass, malignant type microcalcification, or nonsurgical architectural distortion. No significant interval change. Procedure Note Twyla Sigala MD - 05/31/2023 MAMM-SCREENING W/JAYLON REASON FOR EXAM: Breast cancer screening COMPARISON: 11/23/2019-09/28/2016 DENSITY: The breast parenchyma has scattered fibroglandular densities. TECHNIQUE: Digital mammographic and tomosynthesis images were obtained instandard CC and MLO projections. Computer aided detection was utilized. LIMITATIONS: Limited visualization of the caudal aspect of the pectoralismuscles FINDINGS: No suspicious mass, malignant type microcalcification, or nonsurgicalarchitectural distortion. No significant interval change. IMPRESSION: No mammographic evidence of malignancy BI-RADS CATEGORY: 1 - NEGATIVE RECOMMENDATION: Bilateral Follow up mammogram in 1 year If additional imaging and/or biopsy is indicated, [facility] staff will inform the patient of the findings and recommendations,obtain necessary orders from the referring provider, and schedule thepatient for appointment as appropriate. Women with heterogeneously dense or extremely dense breast tissue shoulddiscuss with their primary care provider whether supplemental breastcancer screening with MRI with and without IV contrast may be indicated. The [employer] recommends annual screening mammographyfor women of average risk beginning at age 40. Please note that mammography is not 100% accurate in diagnosing breastcancer. A routine clinical breast examination is recommended to correlatewith mammographic findings. Any palpable abnormality must be assessed clinically. If the patient has anew or unexplained palpable abnormality, then a diagnostic mammogramand/or breast ultrasound may be indicated. This report was created using voice recognition software. While attemptshave been made to review the report as it was transcribed, occasionallythe spoken word can be misinterpreted by the technology leading toomissions or inappropriate words, phrases, or numerical values. If thereis clinical discordance/ambiguity or other questions or concerns arise,please contact the Radiology Department at [phone]. Signed By: Twyla Sigala MD Alexus Stafford DO G MAMMO ORDERABLES Final Result * (ABNORMAL) ALBUMIN, URINE CREATININE/RATIO (01/27/2023 2:52 PM EDT) Creatinine, Ur 18.4(L) 20.0 - 310.0 mg/dL [facility] Alb, Ur <0.10 mg/dL [facility] Alb Creat Ratio UNABLE TO CALCULATE 0 - 30 mg/g creat [facility] Comment: Category Result (mg/ g Creat) Normal to mildly increased <30 Moderately increased 30-299 Severly increased >300 Due to variability in urinary albumin excretion, at least two of three test results measured within a 6-month period should show elevated levels before a patient is designated as having albuminuria. Urine 01/27/2023 2:52 PM EDT 01/27/2023 9:10 PM EDT Alexus Reno Rivear DO URINE ORDERABLES Final Resu lt [facility] [address] [id number], [facility] * AMB REFERRAL TO OPHTHALMOLOGY (08/20/2021) Historical Provider OUTPATIENT REFERRAL ORDERABL ES Final Result * (ABNORMAL) URINE DRUG SCREEN WITH CONFIRMATION (01/12/2020 9:09 AM EDT) Amphetamines,Scree n Negative Negative [facility] Comment: Amphetamine / Methamphetamine screened at 1000 ng/mL cutoff. Urine Drug Screen cutoff values are listed on the [facility] intranet Chemistry Reference Ranges document. http://mytch.[facility].org/Departments/ClinLab Barbiturates,Scree n Negative Negative [facility] Comment:Barbiturates screene d at 200 ng/mL cutoff. Benzodiazepines,Sc reen Negative Negative [facility] Comment:Benzodiazepines scre ened at 200 ng/mL cutoff. Cocaine, Screen Negative Negative [facility] Comment:Cocaines screened at 300 ng/mL cutoff. Opiate,Screen Positive(A) Negative [facility] Comment: Opiates screened at 300 ng/mL cutoff. Positive results from this drug screen are unconfirmed. Unconfirmed screening results are to be used for medical (i.e. treatment) purposes only. Unconfirmed screening results must not be used for non-medical purposes (e.g. employment testing, legal testing). Marijuana,Screen Positive(A) Negative [facility] Comment: Cannabinoids (THC) screened at 50 ng/mL cutoff. Positive results from this drug screen are unconfirmed. Unconfirmed screening results are to be used for medical (i.e. treatment) purposes only. Unconfirmed screening results must not be used for non-medical purposes (e.g. employment testing, legal testing). Methadone,Screen Negative Negative [facility] Comment:Methadone screened a t 300 ng/mL cutoff. Buprenorphine, Screen Negative Negative [facility] Comment: Buprenorphine screened at 5 ng/mL cutoff. This assay detects both buprenorphine and its metabolites (norbuprenorphine). Oxycodone,Screen Negative Negative [facility] Comment:Oxycodone screened a t 100 ng/mL cutoff. 6-Acetylmorphine Screen Negative Negative [facility] Comment:6-Acetylmorphine (6- AM) screened at 10 ng/mL cutoff. Fentanyl,Ur Screen Negative Negative [facility] Comment:Fentanyl screened at 1.8 ng/mL cutoff. This assay detects both fentanyl and its metabolites (norfentanyl). Urine 01/12/2020 9:09 AM EDT 01/12/2020 3:47 PM EDT us Alexus Stafford DO URINE ORDERABLES Final Resu lt Performing Organization Address [facility] de Phone Number [facility] [address] * HEPATITIS C AB WITH REFLEX TO HCV,RNA,QUANT PCR (11/14/2018 9:21 AM EDT) Pathologist [facility] HCV Qual Interp Nonreactive Nonreactive [facility] Comment:IgG and IgM anti-HCV not detected. Signal/Cutoff 0.06 0.00 - 0.79 S/CO [facility] Serum 11/14/2018 9:21 AM EDT 11/14/2018 3:49 PM EDT us Jaymie Brower MD HEMATOLOGY ORDERABLES Roxanna l Result Performing Organization Address [facility] Co de Phone Number [facility] [address] from Last 3 Months or Most Recently Relevant to Health Maintenance Insurance MEDICAID OTHER STATES Advance Directives For more information, please contact: [phone] * Full Code (Latest Code Status on File) Date Activated Date Inactivated Comments 05/14/2019 1:02 PM No automated c hest compression devices for VAD Patients * Full Code Date Activated Date Inactivated Comments 05/14/2019 8:54 AM 05/14/2019 1:01 PM No automated chest compression devices for VAD Patients Care Teams Able Bodied Tankerman Relationship Specialty Start Date End Date Alexus Stafford DO 1952 [address] [facility] [place] [address] PCP - General Internal Medicine 01/07/20 Lotus Adkins MD [address] [place] [address] Consulting Physician Internal Medicine 05/12/18 Oscar Maynard DO [address] [place] [address] Advanced Heart Failure/Transplant 08/07/20 Keiko Wiseman MD [address] [place] [address] [place] [address] Family Medicine 03/02/21 ChanTommy Perez [place] Ophthalmology 05/16/18
--- OUTSIDE RECORDS SUMMARY | 2024-11-05 22:22 | XMS_ITS | Encounter Summary ---
Author Organization [facility] Address [address] [place] [address] Care Team Providers Care Filemaker Developer Name Role Phone Lotus Adkins MD Unavailable [phone] Alexus Stafford DO Primary Care Provider [phone] Oscar Maynard DO Unavailable [phone] Keiko Wiseman MD Unavailable Samaria Agrawal Pharmacist Unavailable [phone]- [phone] Reason for Visit * Reason Comments Medications Refill Encounter Details Date Type Department Care Team (Late Contact Info) Description 04/19/2023 Refill [facility] Physicians - Primary Care, [place] [address] [facility] [place] [address] Alexus Stafford DO [address] [facility] [place] [address] Medications Refill Social History Tobacco Use Types [...] Description 12/28/2024 4:10 PM EDT Appointment [facility] Physicians - Primary Care, [place] [address] [facility] [place] [id number] Alexus Stafford DO [address] [facility] [place] [address] 01/11/2025 9:40 AM EDT Appointment [facility] Physicians - Heart & Vascular, [place] [address] [facility] [place] [id number] Oscar Maynard DO [address] [facility] [place], [place] [id number] documented as of this encounter Visit Diagnoses Diagnosis Type 2 diabetes mellitus with stage 3a chronic kidney disease, with long-term current use of insulin ([facility]) documented in this encounter Additional Health Concerns Assessment Noted Time PHQ-9 Depression Total Score: 1 04/23/20 19 9:11 AM EST documented as of this encounter Care Teams Filemaker Developer Relationship Specialty Start Date End Date Alexus Stafford DO [address] [facility] [address] [place] [id number] PCP - General Internal Medicine 01/07/20 Lotus Adkins MD [address] [place] [address] Consulting Physician Internal Medicine 05/12/18 Oscar Maynard DO [address] [facility] [facility] [id number] Advanced Heart Failure/Transplant 08/07/20 Keiko Wiseman MD [address] [place], [place] [id number] Family Medicine 03/02/21 Samaria Agrawal, Pharmacist [address] [place], [place] [id number] Pharmacist 03/02/21 10/29/24 Jessica Perez [place] Ophthalmology 05/16/18 documented as of this encounter
--- OUTSIDE RECORDS SUMMARY | 2024-11-05 22:22 | XMS_ITS | Encounter Summary ---
Author Organization [facility] Address [address] [place] [address] Care Team Providers Care Siderographist Name Role Phone Lotus Adkins MD Unavailable [phone] Alexus Stafford DO Primary Care Provider [phone] Oscar Maynard DO Unavailable [phone] Keiko Wiseman MD Unavailable Samaria Agrawal Pharmacist Unavailable [phone]- [phone] Gloria Kinney RN Unavailable Encounter Details Date Type Department Care Team (Late st Contact Info) Description 10/19/2021 Clinical Update [facility] Physicians - Heart & Vascular, [place] [address] [place] [phone] [address] [place] [address] [place], [place] [id number] Social History Tobacco Use Types Packs/Day Years [...] suspected to have Coronavirus/COVID-19? No / Unsure 10/20/2021 7:59 AM EDT documented as of this encounter Plan of Treatment Upcoming Encounters Date Type Department Care Team (Late st Contact Info) Description 12/28/2024 4:10 PM EDT Appointment [facility] Physicians - Primary Care, [place] [address] [employer] [address] [place] [address] Alexus Stafford DO [address] [facility] [address] 01/11/2025 9:40 AM EDT Appointment [facility] Physicians - Heart & Vascular, [place] [facility] [place] [address] Oscar Maynard DO [address] [place] [address] documented as of this encounter Visit Diagnoses Not on filedocumented in this encounter Additional Health Concerns Assessment Noted Time PHQ-9 Depression Total Score: 1 04/23/20 19 9:11 AM EST documented as of this encounter Care Teams Siderographist Relationship Specialty Start Date End Date Alexus Stafford DO [facility] [address] [place], [place] [phone] PCP - General Internal Medicine 01/07/20 Lotus Adkins MD [address] [place] [address] Consulting Physician Internal Medicine 05/12/18 Oscar Maynard DO [address] [place] [address] Advanced Heart Failure/Transplant 08/07/20 Keiko Wiseman MD [address] [place] [address] Family Medicine 03/02/21 Samaria Agrawal, Pharmacist [address] [place] [address] Pharmacist 03/02/21 10/29/24 Gloria Kinney, A[address]DRA [address] [place] [address] [employer] Lieutenant 04/21/22 03/30/23 JESSIE Gavin Ophthalmology 05/16/18 documented as of this encounter
--- OUTSIDE RECORDS SUMMARY | 2024-11-05 22:22 | XMS_ITS | Encounter Summary ---
Author Organization [facility] Address [address] [place] [address] Care Team Providers Care Blue Leather Sorter Name Role Phone Lotus Adkins MD Unavailable [phone] Alexus Stafford DO Primary Care Provider [phone] Oscar Maynard DO Unavailable [phone] Keiko Wiseman MD Unavailable Samaria Agrawal Pharmacist Unavailable [phone]- [phone] Gloria Kinney RN Unavailable Reason for Visit * Reason Comments Medications Refill Encounter Details Date Type Department Care Team (Late st Contact Info) Description 05/27/2022 Refill [facility] Physicians - Primary Care, [place] [address] [facility] [address] [place] [phone] Alexus Stafford DO 1954 [facility] [place] [address] Medications Refill Social History Tobacco Use Types [...] suspected to have Coronavirus/COVID-19? No / Unsure 05/17/2022 10:31 AM EST documented as of this encounter Miscellaneous Notes * Telephone Encounter - Consuelo Bashir MA - 05/27/2022 10:46 AM EST Requested Prescriptions Pending Prescriptions Disp Refills ??? furosemide (LASIX) 40 mg tablet [Pharmacy Med Name: FUROSEMIDE 40 MG TABLET] 90 Tablet 0 Sig: TAKE 1 TABLET BY MOUTH EVERY DAY NEEDED ??? insulin glargine (Basaglar) 100 unit/mL Kwikpen [Pharmacy Med Name: BASAGLAR 100 UNIT/ML KWIKPEN] 3 Sig: INJECT 12 UNITS BY SUBCUTANEOUS ROUTE NIGHTLY AT BEDTIME. Last Office Visit: [id number] Next Office Visit:07/05/2022-MR Pending labs on file- No documented in this encounter Plan of Treatment Upcoming Encounters Date Type Department Care Team (Late st Contact Info) Description 12/28/2024 4:10 PM EDT Appointment [facility] Physicians - Primary Care, [place] [address] [place] [address] Alexus Stafford DO 1954 [facility] [address] [place] [address] [address] 01/11/2025 9:40 AM EDT Appointment [facility] Physicians - Heart & Vascular, [address] [facility] [address] [place] [address] Oscar Maynard DO [address] [facility] [address] [place] [address] documented as of this encounter Visit Diagnoses Diagnosis Essential hypertension- Primary Controlled type 2 diabetes mellitus without complication, with long-term current use of insulin documented in this encounter Additional Health Concerns Assessment Noted Time PHQ-9 Depression Total Score: 1 04/23/20 19 9:11 AM EST documented as of this encounter Care Teams Blue Leather Sorter Relationship Specialty Start Date End Date Alexus Stafford DO [address] [facility] [place] [address] PCP - General Internal Medicine 01/07/20 Lotus Adkins MD [address] [place] [address] Consulting Physician Internal Medicine 05/12/18 Oscar Maynard DO [address] [facility] [place] [address] Advanced Heart Failure/Transplant 08/07/20 Keiko Wiseman MD [address] [facility] [address] [place], [place] [phone] Family Medicine 03/02/21 Samaria Agrawal Pharmacist 1954 [facility] [address] [place], [place] [phone] Pharmacist 03/02/21 10/29/24 Gloria Kinney, ALEXSANDRA [address] [place], [place] [id number] Wholesale Buyer 04/21/22 03/30/23 JESSIE Gavin Ophthalmology 05/16/18 documented as of this encounter
--- OUTSIDE RECORDS SUMMARY | 2024-11-05 22:22 | XMS_ITS | Encounter Summary ---
Author Organization [facility] Address [address] [place] [address] Care Team Providers Care Automated Process Operator Name Role Phone Lotus Adkins MD Unavailable [phone] Alexus Stafford DO Primary Care Provider [phone] Oscar Maynard DO Unavailable [phone] Keiko Wiseman MD Unavailable Samaria Agrawal Pharmacist Unavailable [phone]- [phone] Gloria Kinney RN Unavailable Reason for Visit * Reason Comments Medications Refill Encounter Details Date Type Department Care Team (Late st Contact Info) Description 06/30/2022 Refill [facility] Physicians - Primary Care, [place] [address] [facility] [address] [place] [id number] Alexus Stafford DO [address] [facility] [place] [address] Medications Refill Social History Tobacco Use Types [...] Telephone Encounter - Consuelo Bashir MA - 06/30/2022 8:49 AM EST Requested Prescriptions Pending Prescriptions Disp Refills ??? losartan (COZAAR) 100 mg Tablet [Pharmacy Med Name: LOSARTAN POTASSIUM 100 MG TAB] 90 Tablet 1 Sig: TAKE 1 TABLET BY MOUTH EVERY DAY Last Office Visit: 05/07/22-MR Next Office Visit:07/05/2022-MR Pending labs on file- No documented in this encounter Plan of Treatment Upcoming Encounters Date Type Department Care Team (Late st Contact Info) Description 12/28/2024 4:10 PM EDT Appointment [facility] Physicians - Primary Care, [place] [address] [facility], [place] [address] Alexus Stafford DO [address] [facility] [place] [address] 01/11/2025 9:40 AM EDT Appointment [facility] Physicians - Heart & Vascular, [address] [place] [address] Oscar Maynard DO [address] [facility] [place] [address] documented as of this encounter Visit Diagnoses Diagnosis Essential hypertension documented in this encounter Additional Health Concerns Assessment Noted Time PHQ-9 Depression Total Score: 1 04/23/20 9:11 AM EST documented as of this encounter Care Teams Automated Process Operator Relationship Specialty Start Date End Date Alexus Stafford DO [address] [facility] [place] [address] [place] [address] PCP - General Internal Medicine 01/07/20 Lotus Adkins MD [address] [place] [address] Consulting Physician Internal Medicine 05/12/18 Oscar Maynard DO [address] [place] [address] Advanced Heart Failure/Transplant 08/07/20 Keiko Wiseman MD [address] [address] Family Medicine 03/02/21 Samaria Agrawal, Pharmacist [address] [place] [address] Pharmacist 03/02/21 10/29/24 Gloria Kinney, A[address]SANDRA [address] [place] [address] [employer] B Truck Driver 04/21/22 03/30/23 JESSIE Gavin Ophthalmology 05/16/18 documented as of this encounter
--- OUTSIDE RECORDS SUMMARY | 2024-11-05 22:22 | XMS_ITS | Encounter Summary ---
Author Organization [facility] Address [address] [place] [address] Care Team Providers Care Beverage Sales Consultant Name Role Phone Lotus Adkins MD Unavailable [phone] Alexus Stafford DO Primary Care Provider [phone] Oscar Maynard DO Unavailable [phone] Keiko Wiseman MD Unavailable Samaria Agrawal Pharmacist Unavailable [phone] Gloria Kinney RN Unavailable Reason for Visit * Reason Comments Medications Refill Encounter Details Date Type Department Care Team (Late st Contact Info) Description 05/17/2022 Refill [facility] Physicians - Primary Care, [place] [address], [place] [address] Alexus [place], [place] [address] [facility] [address] [place] [id number] Medications Refill Social History Tobacco Use Types [...] AM EST documented as of this encounter Plan of Treatment Upcoming Encounters Date Type Department Care Team (Late st Contact Info) Description 12/28/2024 4:10 PM EDT Appointment [facility] Physicians - Primary Care, [place] [address] [facility], [place] [address] Alexus Stafford DO [address] [facility] [place] [address] 01/11/2025 9:40 AM EDT Appointment [facility] Physicians - Heart & Vascular, [place] [address] [facility] [place] [address] Oscar Maynard DO [address] [place] [address] documented as of this encounter Visit Diagnoses Diagnosis Gastroesophageal reflux disease with esophagitis, unspecified whether hemorrhage documented in this encounter Additional Health Concerns Assessment Noted Time PHQ-9 Depression Total Score: 1 04/23/20 19 9:11 AM EST documented as of this encounter Care Teams Beverage Sales Consultant Relationship Specialty Start Date End Date Alexus Stafford DO [address] [facility] [place] [address] [place] [address] PCP - General Internal Medicine 01/07/20 Lotus Adkins MD [address] [place] [address] Consulting Physician Internal Medicine 05/12/18 Oscar Maynard DO [address] [place], [place] [id number] Advanced Heart Failure/Transplant 08/07/20 Keiko Wiseman MD [address] [place], [place] [address] Family Medicine 03/02/21 Samaria Agrawal, Pharmacist [address] [place], [place] [id number] Pharmacist 03/02/21 10/29/24 Gloria Kinney, RN [address] [place], [place] [address] Office Analyst 04/21/22 03/30/23 JESSIE Gavin Ophthalmology 05/16/18 documented as of this encounter
--- OUTSIDE RECORDS SUMMARY | 2024-11-05 22:22 | XMS_ITS | Encounter Summary ---
Author Organization [facility] Address [address] [place] [address] Care Team Providers Care Health/Safety Job Titles Name Role Phone Lotus Adkins MD Unavailable [phone] Alexus Stafford DO Primary Care Provider [phone] Oscar Maynard DO Unavailable [phone] Keiko Wiseman MD Unavailable Samaria Agrawal Pharmacist Unavailable [phone]- [phone] Reason for Visit * Reason Comments Med Change Request Encounter Details Date Type Department Care Team (Late st Contact Info) Description 06/13/2023 Refill [facility] Physicians - Primary Care, [place] 1954 [facility] [place] [address] Alexus Stafford DO 1954 [facility] [address] [place] [id number] Med Change Request Social History Tobacco Use [...] Description 12/28/2024 4:10 PM EDT Appointment [facility] Physicians - Primary Care, [place] [address], [facility] D [place], [place] [id number] Alexus Stafford DO [address] [facility] [place] [address] 01/11/2025 9:40 AM EDT Appointment [facility] Physicians - Heart & Vascular, [place] [address] [facility] [place] [id number] Oscar Maynard DO [address] [facility] [place], [place] [id number] documented as of this encounter Visit Diagnoses Diagnosis Vitamin D deficiency documented in this encounter Additional Health Concerns Assessment Noted Time PHQ-9 Depression Total Score: 1 04/23/20 19 9:11 AM EST documented as of this encounter Care Teams Health/Safety Job Titles Relationship Specialty Start Date End Date Alexus Stafford DO [address] [facility] [address] [place], [place] [id number] PCP - General Internal Medicine 01/07/20 Lotus Adkins MD [address] [place] [address] Consulting Physician Internal Medicine 05/12/18 Oscar Maynard DO [facility] [address] [facility], [place] [id number] Advanced Heart Failure/Transplant 08/07/20 Keiko Wiseman MD [facility] [place] [address] Family Medicine 03/02/21 Samaria Agrawal, Pharmacist [address] [place] [address] Pharmacist 03/02/21 10/29/24 Jessica PerezRYE, [place] Ophthalmology 05/16/18 documented as of this encounter
--- OUTSIDE RECORDS SUMMARY | 2024-11-05 22:22 | XMS_ITS | Clinical Summary ---
Author Organization [facility] Address [address] [place] [address] Phone Care Team Providers Care Ironer Sock Name Role Phone Unavailable Primary Care Provider Unavailabl e Allergies Active Allergy Reactions Criticality Noted Date Comments Sertraline Other (See Comments) Medium 01/14/2020 Shaking and diaphoresis Medications Insulin Syringes, Disposable, 1 mL SyrgIndications: DM (diabetes mellitus), type 2, uncontrolled by Misc.(Non-Drug; Combo Route) route nightly. 10 units nightly 30 Syringe 6 0 Active Lancets MiscIndications: DM (diabetes mellitus), type 2, uncontrolled Use as directed 100 Each 3 1 Active Insulin Syringes, Disposable, 1 mL SyrgIndications: DM (diabetes mellitus), type 2, uncontrolled Use as directed. 30 Syringe 6 2 Active simvastatin (ZOCOR) 40 mgIndications:El evated cholesterol Take 1 Tab by mouth daily. 30 Tab 5 2 Active fUROsemide (LASIX) 40 mg tabletIndication s:Hypertension Take 1 Tab by mouth daily. 30 Tab 5 2 Active pioglitazone (ACTOS) 45 mg tabletIndication s:DM (diabetes mellitus), type 2, uncontrolled Take 1 Tab by mouth daily. 30 Tab 5 2 Active Blood Sugar Diagnostic (ONE TOUCH TEST) Strp Use as directed 3x daily. 100 Strip 5 2 Active insulin glargine (LANTUS) 100 unit/mL injection Subcutaneous (Inject under the skin) 10 Units nightly. 10 mL 0 2 Active oxybutynin (DITROPAN) 5 mg tablet Take 5 mg by mouth daily. Active amLODIPine (NORVASC) 10 mg Oral Tablet Take 10 mg by mouth daily. 2 Active aspirin 81 mg Oral Tablet, Delayed Release (E.C.) Take 81 mg by mouth daily. Active alendronate (FOSAMAX) 70 mg Oral Tablet Take 70 mg by mouth once a week. Tuesday Active dapagliflozin (FARXIGA) 5 mg Oral Tablet Take 1 Tablet by mouth daily. 2 Active esomeprazole (NEXIUM) 20 mg Oral Capsule, Delayed Release(E.C.) Take 1 Capsule by mouth daily. 2 Active estradioL (ESTRACE) 1 mg Oral Tablet Take 1 mg by mouth daily. Active fluticasone propionate (FLONASE) 50 mcg/actuation Nasl Warren, Suspension 1 Warren by Nasal route as needed. 4 Active losartan (COZAAR) 100 mg Oral Tablet Take 1 Tablet by mouth daily. 2 Active Melatonin 3 mg Oral Tablet Take 5 mg by mouth nightly. Active traZODone (DESYREL) 50 mg Oral Tablet Take 50 mg by mouth nightly. 2 Active UNABLE TO FIND Dexcom transmitter Active oxyCODONE (ROXICODONE) 5 mg Oral Tablet Take 1 Tablet by mouth every 4 hours as needed for Major Surgery/Trauma (G89.18). 5 Tablet 2 Active Additional Information Patient not taking.Reason: Pt electing to not take the medication, Reported on 11/13/2021 Active Problems Patient Care Coordination No te Formatting of this note migh t be different from the original. Informed consents reviewed/signed for appropriate meds yes Controlled Substance Agreement reviewed/signed yes Comprehensive Urine Drug Screen: no [place] substance [place] ([place]APP:yes Problem Noted Date Diagnosed Date Left hand pain 10/30/2021 Overview (10/30/2021): Added automatically from request for surgery [id number] Bilateral carpal tunnel syndrome 10/30/2021 Overview (10/30/2021): Added automatically from request for surgery [id number] Trigger index finger of right hand 10/30/2021 Overview (10/30/2021): Added automatically from request for surgery [id number] Chest pain 09/07/2021 Moderate protein-calorie malnutrition 09/07/2021 Acute chest pain 01/14/2020 Dupuytren contracture 08/25/2011 Overview (08/25/2011): Left hand Hypertension Elevated cholesterol GERD (gastroesophageal reflux disease) DJD (degenerative joint disease) Depression with anxiety Type 2 diabetes mellitus wit hout complication, with long-term current use of insulin Immunizations Immunization Administration Dates Next Due Influenza Intradermal 03/03/2012 Influenza Vaccine, Unspecifi ed Formulation 02/27/2010 Rabies IM, Fibroblast Culture 06/28/2019 ,06/21/2019(Deferred: Other - DUPLICATE ORDER),06/21/2019,06/17/2019,06/14/2019 Tdap 06/08/2019 Surgical History Surgery Date Site/Laterality Comments HYSTERECTOMY CHOLECYSTECTOMY CARPAL TUNNEL RELEASE 11/04/2021 Hand/Wrist/Bilatera l Bilateral Carpal Tunnel Release, Left index finger trigger finger release and excision of mass; Surgeon: Eugene Vasquez MD; Location: [facility]; Service: Hand FINGER TRIGGER RELEASE 11/04/2021 Hand/Wrist/Left .; Surgeon: Eugene Vasquez MD; Location: [facility]; Service: Hand WRIST GANGLION EXCISION 11/04/2021 Hand/Wrist/Left .; Surgeon: Eugene Vasquez MD; Location: [facility]; Service: Hand Medical History Medical History Date Comments Depression Diabetes mellitus (HCC) Arthritis Anxiety GERD (gastroesophageal reflux disease) Hypertension Angina pectoris Hyperlipidemia Family History Medical History Relation Name Comments Heart Disease Father Heart Disease Maternal Grandfather Diabetes Maternal Grandmother Heart Disease Maternal Grandmother Heart Disease Mother Diabetes Paternal Grandfather Heart Disease Paternal Grandfather Diabetes Paternal Grandmother Heart Disease Paternal Grandmother Relation Name Status Comments Father Maternal Grandfather Maternal Grandmother Mother Paternal Grandfather Paternal Grandmother Social History Tobacco Use Types Packs/Day Years Used Date Smoking Tobacco: Never Smokeless Tobacco: Never Alcohol Use Standard Drinks/Week Comments Yes 7 (1 standard drink = 0.6 oz pur e alcohol) weekly Comments No Sex and Gender Information Value Date Recorded Sex Assigned at Not on file Legal Sex Female 4:34 PM EDT Gender Identity Not on file Sexual Orientation Not on file Obstetrics History Last Filed Vital Signs Vital Sign Reading Time Taken Comments Blood Pressure 124/64 11/04/2021 8:43 AM EDT Pulse 64 11/04/2021 8:43 AM EDT Temperature 36.2 C (97.2 F) 11/04/2021 8:43 AM EDT Respiratory Rate 16 11/04/2021 8:43 AM EDT Oxygen Saturation 97% 11/04/2021 8:43 AM EDT Inhaled Oxygen Concentration - - Weight 62.6 kg (138 lb) 11/04/2021 8:05 AM EDT Height 160 cm (5' 3 ) 11/04/2021 8:05 AM EDT Body Mass Index 24.45 11/04/2021 8:05 AM EDT Plan of Treatment Health Maintenance Due Date Last Done Comments Wellness Exam Medicare 10/24/1953 Diabetic Eye Exam 1970 Hepatitis C Screening 1970 Cologuard 1997 FIT 1997 Sigmoidoscopy 1997 Virtual Colonography 1997 Breast Cancer Screening 02/24/2012 02/23/2010 Kidney Health: uACR 08/24/2012 08/25/2011, 1 RSV or 60+ (1 - Risk 60-74 years 1-dose series) 2012 Colon Cancer Screening 04/25/2016 Colonoscopy 04/25/2016 04/25/2006 Lipids 10/14/2020 10/15/2019, 03/27, 04/06/2017, Additional history exists Hemoglobin A1c 03/10/2022 09/07/2021, 0212/2021, 01/12/2020, Additional history exists Kidney Health: eGFR 09/07/2022 09/07/2021, 01/14/2020, 04/06/2017, Additional history exists COVID-19 Vaccine () 12/25/2023 04/14/2021, 08/15/2020, 07/25/2020 Influenza Vaccine (#1) 2024 , 01/17/2020, 04/23/2019, Additional history exists DTaP/TDaP/Td (2 - Td or Tdap) 06/08/2029 06/08/2019 Pneumococcal Vaccine 50+ Completed 07/06/2019, 04/26 Bone Density Screening Completed 11/23/2019 Zoster Completed 01/18/2020, 04/26/2019 Hepatitis B Vaccine Aged Out No longe r eligible based on patient's age to complete this topic Meningococcal B Vaccine Aged Out No l onger eligible based on patient's age to complete this topic Procedures Procedure Name Priority Date/Time Associated Diagnosis Comments BASIC METABOLIC PANEL STAT 09/07/2021 1:32 AM EDT HEMOGLOBIN A1C Routine 09/07/2021 1:32 AM EDT LIPID PANEL REFLEX Callback 04/06/2017 11 :25 AM EST Hyperlipidemia, unspecified hyperlipidemia type Senile arthritis Dorsalgia Betancourt's esophagus with dysplasia MICROALBUMIN, URINE-ARUP Routine 08/25/2011 11:00 AM EDT DM (diabetes mellitus), type 2, uncontrolled (HCC) HM MAMMOGRAPHY Routine 02/23/2010 HM COLONOSCOPY Routine 04/25/2006 from Last 3 Months or Most Recently Relevant to Health Maintenance Results * (ABNORMAL) HEMOGLOBIN A1C (09/07/2021 1:32 AM EDT) Hgb A1C 8.5(H) 4.2 - 5.6 % 09/07/2021 11:42 AM EDT [facility] Est. Avg Glucose 197 mg/dL 09/07/2021 11:42 AM EDT [facility] Blood VENOUS BLOOD / Unknown Venipuncture / Unknown 09/07/2021 1:32 AM EDT 09/07/2021 1:34 AM EDT Narrative [facility] - 09/07/2021 11:42 AM EDT REFERENCE RANGE: Normal: 4.0-5.6% Pre-diabetes: 5.7-6.4% Provisional diagnosis of diabetes: >6.4% Hgb F>10% and anything which shortens red cell survival, such as hemolytic anemia, or unstable hemoglobin variants such as HbSS, HbSC, or HbCC, will lower the HbA1c value associated with a given level of glycemic control. us Elder Martinez MD CHEMISTRY ORDERABLES Final Resul t [facility] [address] [facility] , [place] [address] * (ABNORMAL) BASIC METABOLIC PANEL (09/07/2021 1:32 AM EDT) Sodium 138 136 - 145 mmol/L 09/07/2021 1:59 AM EDT [facility] Potassium 4.0 3.5 - 5.0 mmol/L 09/07/2021 1:59 AM EDT [facility] Chloride 102 98 - 107 mmol/L 09/07/2021 1:59 AM EDT [facility] Total CO2 19(L) 22 - 29 mmol/L 09/07/2021 1:59 AM EDT [facility] Anion Gap 17(H) 7 - 16 mmol/L 09/07/2021 1:59 AM EDT [facility] Calcium 9.0 8.8 - 10.4 mg/dL 09/07/2021 1:59 AM EDT [facility] Glucose Lvl 84 82 - 100 mg/dL 09/07/2021 1:59 AM EDT [facility] BUN 31(H) 8 - 23 mg/dL 09/07/2021 1:59 AM EDT [facility] Creatinine 1.11 0.51 - 1.30 mg/dL 09/07/2021 1:59 AM EDT [facility] eGFR (CKD-EPIcr 2020) 54(L) >=60 mL/min/1.7 3 m2 09/07/2021 1:59 AM EDT [facility] Comment:Estimated GFR was ca lculated using the CKD-EPIcr (2020) equation refit without race. The equation is recommended by the National Kidney Foundation - [place] Society of Nephrology Task Force. Blood VENOUS BLOOD / Unknown Venipuncture / Unknown 09/07/2021 1:32 AM EDT 09/07/2021 1:34 AM EDT us Olivia Keith MD CHEMISTRY ORDERABLES Final Resu lt Performing Organization Address [facility] de Phone Number [facility] [address] [place] [address] * LIPID PANEL REFLEX (04/06/2017 11:25 AM EST) Cholesterol 180 <=200 mg/dL 04/06/2017 7:11 PM EST [facility] Comment: < 200 Desirable 200 - 239 Borderline High >= 240 High Triglyceride 146 <=150 mg/dL 04/06/2017 7:11 PM EST [facility] Comment: < 150 Normal 150 - 199 Borderline High 200 - 499 High >= 500 Very High HDL 74 >=40 mg/dL 04/06/2017 7:11 PM EST [facility] Comment: > 60 Optimal 40 - 60 Acceptable < 40 Low LDL Calculated 77 <=100 mg/dL 04/06/2017 7:11 PM EST [facility] Blood VENOUS BLOOD / Unknown Venipuncture / Unknown 04/06/2017 11:25 AM EST 04/06/2017 11:25 AM EST Narrative [facility] - 04/06/2017 7:11 PM EST Fax results to [phone] Fax results to [phone] Fax results to [phone] Fax results to [phone] Fax results to [phone] us Rao Swift MD CHEMISTRY ORDERABLES Final Resul t Performing Organization Address [facility] Co de Phone Number [facility] [address] [place] [address] * MICROALBUMIN, URINE-ARUP (08/25/2011 11:00 AM EDT) Total Volume Random mL [facility] Hrs Basim Random hr [facility] U Creatinine 269 mg/dL [facility] U24 Creat Not Applicable 500 - 1400 mg/day [facility] Microalbumin mg/dL-ARUP 4.3 mg/dL [facility] Microalbumin/Cre atinine Ratio-ARUP 16 0 - 30 mg/gm [facility] Microalbumin ug/minute-ARUP Not Applicable 0 - 20 mcg/min [facility] Microalbumin mg/day-ARUP Not Applicable 2 - 30 mg/day [facility] Urine specimen (specimen) 08/25/2011 11:00 AM EDT 08/26/2011 9:35 AM EDT us Adam Moreland MD URINE ORDERABLES Final Result Performing Organization Address City/State/[facility] Co de Phone Number [facility] [address] [place] [address] * MAMMOGRAPHY (02/23/2010) Historical Provider HEALTH MAINTENANCE Final Res ult * COLONOSCOPY (04/25/2006) Historical Provider HEALTH MAINTENANCE Final Res ult from Last 3 Months or Most Recently Relevant to Health Maintenance Insurance [facility] MEDICAID MEDICARE PART B [facility] MEDICAID Member Subscriber Plan / Payer (Ef fective 2014-Present) Name:Brooklyn Bell W Relation to Subscriber:Self Name:Brooklyn Bell Payer ID:Not on file Type:Not on file Address: [place] [id number] MEDICARE PART B MEDICARE PART B [facility] MEDICAID MEDICARE PART B [address] [facility] [place] [address] [facility] MEDICA[employer] Advance Directives For more information, please contact: [phone] * Full Code (Latest Code Status on File) Date Activated Date Inactivated Comments 09/07/2021 4:17 AM 09/07/2021 10:49 PM
--- NOTE | 2024-11-05 22:43 | XR_ITS ---
PROCEDURE INFORMATION: Exam: XR Chest Exam date and time: 11/05/2024 10:48 PM Age: 74 years old Clinical indication: Pain; Chest pressure; Additional info: Chest pain TECHNIQUE: Imaging protocol: Radiologic exam of the chest. Views: 1 view. COMPARISON: CT ANGIO CHEST 06/23/2024 11:09 PM FINDINGS: Lungs: Peribronchial interstitial opacities are probably chronic lung disease. No acute airspace infiltrate Pleural spaces: Unremarkable. No pleural effusion. No pneumothorax. Heart/Mediastinum: Unremarkable. No cardiomegaly. Bones/joints: Unremarkable. Other findings: No effusions IMPRESSION: Chronic lung disease. No definite acute abnormality.
[2024-11-05 23:01] VITALS: BP 103/63; PULSE 63; RESP 14; O2SAT 96
[2024-11-05 23:06] LABS: Hematocrit 34.3 % (37.0-47.0); Hemoglobin 11.9 g/dL (12.2-16.2); Immature Granulocytes % 0.6 %; Mean Corpuscular HGB Conc 34.7 g/dL (31.8-35.4); Mean Corpuscular Hemoglobin 32.2 pg (27.0-31.2); Mean Corpuscular Volume 93.0 fl (81-99); Nucleated Red Blood Cells % 0 %; Platelet Count 228 K/mm3 (142-424); Red Blood Count 3.69 M/mm3 (4.20-5.40); Red Cell Distribution Width-SD 46.5 fL; White Blood Count 9.1 K/mm3 (4.8-10.8)
[2024-11-05 23:12] LABS: Alanine Aminotransferase 10 U/L (12-78); Albumin Level 4.4 g/dl (3.5-5.0); Albumin/Globulin Ratio 1.5 (1.1-1.8); Alkaline Phosphatase 130 U/L (38-126); Anion Gap 21.4 mEq/L (5-15); Aspartate Amino Transferase 23 U/L (14-36); Bilirubin,Total 0.5 mg/dl (0.2-1.3); Blood Urea Nitrogen 15 mg/dl (7-17); Calcium 10.0 mg/dl (8.4-10.2); Carbon Dioxide 21 mmol/L (22.0-30.0); Chloride 92 mmol/L (98-107); Creatinine Clearance Estimated 57 mL/min (50-200); Creatinine,Serum 0.70 mg/dl (0.52-1.04); Estimated Glomerular Filt Rate 82 ml/min (>60); GFR (African American) 100 ML/MIN (>60); Globulin 3.0 g/dL (1.3-3.2); Glucose 305 mg/dl (74-100); Potassium 4.4 mmoL/L (3.5-5.1); Sodium 130 mmol/L (136-145); Total Protein,Serum 7.4 g/dl (6.3-8.2)
[2024-11-05 23:17] LABS: D-Dimer 0.94 ug/mL (0.0-0.5)
--- NOTE | 2024-11-05 23:24 | CT_ITS ---
PROCEDURE INFORMATION: Exam: CTA Chest With Contrast Exam date and time: 11/05/2024 11:41 PM Age: 74 years old Clinical indication: Shortness of breath; Additional info: Dimer elevated SOA cp TECHNIQUE: Imaging protocol: Computed tomographic angiography of the chest with contrast. Exam focused on the arteries. 3D rendering (Not supervised by radiologist): MIP and/or 3D reconstructed images were created by the technologist. Radiation optimization: All CT scans at this facility use at least one of these dose optimization techniques: automated exposure control; mA and/or kV adjustment per patient size (includes targeted exams where dose is matched to clinical indication); or iterative reconstruction. Contrast material: ISOVUE; Contrast volume: 70 ml; Contrast route: INTRAVENOUS (IV); COMPARISON: CT ANGIO CHEST 06/23/2024 11:09 PM FINDINGS: Pulmonary arteries: No acute pulmonary embolus Aorta: No aortic dissection Lungs: No definite acute airspace pattern infiltrates. Peripheral airspace pattern infiltrates are present in the bilateral lower lobes left greater than right Pleural spaces: Unremarkable. No pneumothorax. No pleural effusion. Heart: Unremarkable. No cardiomegaly. No pericardial effusion. Coronary arteries: No coronary artery calcifications Lymph nodes: Unremarkable. No enlarged lymph nodes. Bones/joints: Unremarkable. No acute fracture. Soft tissues: Unremarkable. IMPRESSION: 1. No CT evidence of acute pulmonary embolus 2. Bilateral small peripheral airspace infiltrates [id number]-right lower lobes. Pneumonia versus pneumonitis.
[2024-11-05 23:26] LABS: Troponin I < 0.01 ng/ml (0.00-0.034)
[2024-11-05 23:30] VITALS: BP 97/66; PULSE 72; RESP 21; O2SAT 97
[2024-11-05 23:30] LABS: Hepatitis C Ab Qual. W/ RFX NEGATIVE (Negative)
--- NOTE | 2024-11-05 23:46 | [facility].EDCP ---
Discharge Plan Disposition Patient Disposition: Home, Self-Care Condition: Good Prescriptions Prescriptions: No Action omeprazole 20 mg capsule,delayed release(DR/EC) 20 mg PO DAILY insulin glargine [Lantus U-100 Insulin] 100 unit/mL solution 17 unit SUB-Q QHS triamterene-hydrochlorothiazid 37.5-25 mg capsule 1 cap PO QAM Rx Instructions: furosemide 40 mg tablet 40 mg PO DAILY diazepam 5 mg tablet 5 mg PO BID promethazine 25 mg tablet 25 mg PO Q6H PRN (Reason: Nausea) simvastatin [Zocor] 40 mg tablet 40 mg PO QPM losartan [Cozaar] 100 mg tablet 100 mg PO DAILY ranitidine HCl [Zantac] 300 mg tablet 300 mg PO BID hydrocodone-acetaminophen 7.5-325 mg tablet 1 tab PO Q4H PRN (Reason: PAIN) amlodipine 5 mg tablet 10 mg PO DAILY aspirin 81 mg tablet,delayed release (DR/EC) 81 mg PO DAILY insulin glargine 100 unit/mL (3 mL) insulin pen 15 unit SQ QPM cholecalciferol (vitamin D3) 75 mcg (3,000 unit) tablet 75 mcg PO DAILY esomeprazole magnesium 20 mg capsule,delayed release(DR/EC) 20 mg PO DAILY glimepiride 2 mg tablet PO DAILY (DME) pen needle, diabetic 31 gauge x 5/16 needle See Rx Instructions .ROUTE .MEDSUPPLY Qty: 1,200 Rx Instructions: As directed metoprolol succinate 25 mg tablet extended release 24 hr PO oxybutynin chloride 5 mg tablet 5 mg PO TID 30 Days Qty: 90 6RF estradiol 1 mg tablet 1 mg PO DAILY Qty: 30 11RF Rx Instructions: this a decrease in dosage from 2mg to 1mg alendronate 70 mg tablet See Rx Instructions .ROUTE .COMPLEX Qty: 7 0RF Dose Instruction: TAKE 1 TABLET ONCE A WEEKIN THE MORNING AT LEAST 30 MINUTES BEFORE FOOD ORBEVERAGE FOR OSTEOPOROSIS Rx Instructions: TAKE 1 TABLET ONCE A WEEKIN THE MORNING AT LEAST 30 MINUTES BEFORE FOOD ORBEVERAGE FOR OSTEOPOROSIS dapagliflozin propanediol 5 MG tablet 5 mg PO ONCE Patient Comments: TAKE 1 TABLET BY MOUTH EVERY DAY ezetimibe-rosuvastatin 1 EACH tablet 1 each PO ONCE oseltamivir 75 MG capsule 75 mg PO BID Qty: 10 0RF cephalexin 500 mg capsule 500 mg PO Q6H Qty: 28 0RF lidocaine 5 % adhesive patch,medicated 1 patch topical DAILY PRN (Reason: pain) Qty: 30 0RF Rx Instructions: leave on most painful area for up to 12 hrs Referrals Follow up/Referrals: Alexus Stafford MD [Primary Care Provider, Medical] - See instructions Referral Note: Please reevaluate patient, recently seen in ER for chest pain, positive for THC and EtOH, mild hyponatremia sodium 130. Activity Restrictions/Add. Instructions Additional Instructions/Restrictions: You were evaluated in the ER and I believe to be appropriate for discharge at this time. Continue any home medications as previously prescribed. As discussed, I recommend stopping using marijuana and alcohol as well as any other illicit substances. This will help protect and improve your health. Make an appointment with your primary care doctor for reevaluation in 1 to 2 days. Make an appointment with your member services representative (heart doctor) for reevaluation in 1 to 2 days as well. Return to the ER with any new, worsening, or otherwise concerning symptoms. Clinical Impressions Clinical Impression: Chest pain, Mild tetrahydrocannabinol (THC) abuse, Alcohol use, Hyponatremia Print Language Print Language: Icelandic Discharge ED Provider: Fabiola Lynn [facility] <Fabiola Lynn DO - Last Filed: 11/05/24 23:51> General Chief Complaint: Chest Pain Stated Complaint: chest pain Time Seen by Provider: 11/05/24 22:17 Mode of Arrival: EMS Source of Information: Patient and EMS Description of Symptoms (Recalled from ER Triage Doc. by RN): Pt reports to the ED with c/o CP and syncope. EMS reports that the pt c/o CP X 4 hrs, but denies that pt c/o syncope. Pt recieved 324 asa and 1 SL nitro per EMS. Pt reports that she has been stressed out at home over familial issues . She reports that she feels safe at home, but is under a lot of stress. Pt reports that she had 1 syncopal episode but denies hitting head, she rpeorts that she was sitting on the nightstand and fell onto the bed . Pt reported that she has had CP X 2 hrs. History of Present Illness HPI narrative: This patient is a 74-year-old female with a history of marijuana use, alcohol use hypertension, hyperlipidemia, type 2 diabetes presenting to the emergency department for evaluation with concern for chest pain. She states that she had chest pain 4 hours prior to arrival. She states that she felt short of breath and like she could not catch her breath. The pain was on the left side but has now resolved. She arrives by EMS who noted stable vitals en route. Related Data Home Medications ?Medication ?Instructions ?Recorded ?Confirmed diazepam 5 mg tablet 5 mg PO BID NERVES 08/29/17 06/07/19 furosemide 40 mg tablet 40 mg PO DAILY DIURETIC 08/29/17 07/06/21 hydrocodone 7.5 mg-acetaminophen 1 tab PO Q4H PRN PAIN 08/29/17 06/07/19 325 mg tablet insulin glargine 100 unit/mL 17 unit SUB-Q QHS DM 08/29/17 06/07/19 subcutaneous solution (Lantus U-100 Insulin) losartan 100 mg tablet (Cozaar) 100 mg PO DAILY HTN 08/29/17 07/06/21 omeprazole 20 mg capsule,delayed 20 mg PO DAILY STOMACH 08/29/17 06/07/19 release promethazine 25 mg tablet 25 mg PO Q6H PRN Nausea 08/29/17 06/07/19 ranitidine HCl 300 mg tablet 300 mg PO BID STOMACH 08/29/17 06/07/19 (Zantac) simvastatin 40 mg tablet (Zocor) 40 mg PO QPM CHOELSTEROL 08/29/17 06/07/19 triamterene 37.5 1 cap PO QAM BP 08/29/17 06/07/19 mg-hydrochlorothiazide 25 mg capsule amlodipine 5 mg tablet 10 mg PO DAILY Hypertension 10/01/19 07/06/21 aspirin 81 mg tablet,delayed 81 mg PO DAILY heart health 10/01/19 07/06/21 release cholecalciferol (vitamin D3) 75 75 mcg PO DAILY 10/01/19 mcg (3,000 unit) tablet esomeprazole magnesium 20 mg 20 mg PO DAILY Indigestion 10/01/19 07/06/21 capsule,delayed release glimepiride 2 mg tablet mg PO DAILY 10/01/19 insulin glargine 100 unit/mL (3 15 unit SQ QPM 10/01/19 mL) subcutaneous pen metoprolol succinate 25 mg PO 10/01/19 tablet,extended release 24 hr pen needle, diabetic 31 gauge x #1,200 ea 10/01/19/16 dapagliflozin propanediol 5 mg 5 mg PO ONCE blood sugar control 07/06/21 07/06/21 tablet ezetimibe 10 mg-rosuvastatin 10 mg 1 each PO ONCE Supplement 07/06/21 07/06/21 tablet Previous Rx's ?Medication ?Instructions ?Recorded oxybutynin chloride 5 mg tablet 5 mg PO TID UNK 30 days #90 tabs 06/12/20 estradiol 1 mg tablet 1 mg PO DAILY ESTROGEN REPLACEMENT 10/06/20 #30 tabs alendronate 70 mg tablet See Rx Instructions .Route 04/06/21 .COMPLEX #7 tabs oseltamivir 75 mg capsule 75 mg PO BID #10 caps 07/06/21 cephalexin 500 mg capsule 500 mg PO Q6H #28 caps 05/29/22 lidocaine 5 % topical patch 1 patch topical DAILY PRN pain #30 06/24/24 ea Allergies Allergy/AdvReac Type Severity Reaction Status Date / Time codeine Allergy Severe S-DIFF. Verified 10/01/19 10:58 BREATHING sertraline (From Zoloft) Allergy Mild bad dreams Verified 10/01/19 10:58 PFSH <Fabiola Lynn DO - Last Filed: 11/05/24 23:51> [facility] Disclaimer: The information contained in this section may have been updated after the patient was seen, as this information can be updated by other users. Social History Smoking Status: Current every day smoker alcohol intake: current alcohol intake frequency: a few times a week substance use type: denies use current occupational status: disabled Travel in the last 8 weeks?: None Have you lived/traveled outside [place] in past 30 days?: No Contact w/someone who lives/traveled outside US past 30 days?: No Exposure to someone with infectious disease in past 14 days?: No Do you have a fever (greater than 100.4 F or 38 C)?: No Have you tested positive for COVID-19?: No Exposed to someone with COVID-19 in past 14 days?: No Do you have a sore throat?: No Do you have a cough?: No Do you have any weakness?: No Do you have any diarrhea?: No Are you experiencing any unusual bleeding?: No Do you have any muscle aches/pain?: No Do you have any abdominal pain?: No Are you experiencing loss of taste or smell?: No Other Medical History Have you received the Flu Vaccine for this season: Yes Have you received the Pneumonia Vaccine: Yes <Fabiola Lynn DO - Last Filed: 11/05/24 23:51> ROS Obtained: Yes All systems reviewed & no additional complaints except as documented Physical Exam <Fabiola Lynn DO - Last Filed: 11/05/24 23:51> General General appearance: alert and in no apparent distress Head Head exam: atraumatic and normocephalic Eye Eye exam: Present normal appearance, PERRL and EOMI ENT ENT exam: Present normal exam, normal oropharynx, mucous membranes moist and normal external ear exam Neck Neck exam: Present normal inspection, full ROM and trachea midline; Absent tenderness Chest Chest inspection: Present normal inspection and symmetric chest wall rise; Absent tenderness Respiratory Respiratory exam: Present normal lung sounds bilaterally; Absent respiratory distress, wheezes, stridor or accessory muscle use Cardiovascular Cardiovascular exam: Present regular rate and normal rhythm Abdominal Exam Abdominal exam: Present soft; Absent distention, tenderness or guarding Extremities Exam Extremities exam: Present normal inspection, full ROM and normal capillary refill; Absent tenderness or edema Back Exam Back exam: Present normal inspection and full ROM; Absent tenderness Neurological Exam Neurological exam: Present alert, oriented X3, CN II-XII intact and normal gait; Absent motor sensory deficit Psychiatric Psychiatric exam: Present normal affect and normal mood Skin Skin exam: Present warm and dry HEART Score <Fabiola Lynn DO - Last Filed: 11/05/24 23:51> HEART Score HEART Score assessment performed?: Yes History (anamnesis): Slightly suspicious ECG: Normal Age: >65 years Risk factors: 3 or more risk factors Troponin: </= normal limit HEART Score: 4 <Taj Brody MD - Last Filed: 11/06/24 01:39> HEART Score HEART Score: 4 Critical Care <Fabiola Lynn DO - Last Filed: 11/05/24 23:51> Critical Care Time Critical Care Time: No Medical Decision Making <Fabiola Lynn DO - Last Filed: 11/05/24 23:51> Filemon Inquiry Pt receiving controlled substance: No Vital Signs Vital Signs: 11/05/24 22:18 11/05/24 23:01 11/05/24 23:01 Temperature 98.7 F Temperature Source Oral Pulse Rate 63 Pulse Rate [Left] 82 Respiratory Rate 14 14 Blood Pressure 103/63 L Blood Pressure [Right Arm] 141/83 H Blood Pressure Mean 76 Blood Pressure Mean [Right Arm] 102 Blood Pressure Source [Right Arm] Automatic Cuff Blood Pressure Position [Right Arm] Sitting 02 Sat by Pulse Oximetry 98 96 Oxygen Delivery Method Room Air 11/05/24 23:30 11/05/24 23:30 11/06/24 00:00 Temperature Temperature Source Pulse Rate 72 69 Pulse Rate [Left] Respiratory Rate 21 14 Blood Pressure 97/66 L 108/59 L Blood Pressure [Right Arm] Blood Pressure Mean 75 Blood Pressure Mean [Right Arm] Blood Pressure Source [Right Arm] Blood Pressure Position [Right Arm] 02 Sat by Pulse Oximetry 97 96 Oxygen Delivery Method Lab Data Labs: Lab Results 11/05/24 22:10: WBC 9.1, RBC 3.69 L, Hgb 11.9 L, Hct 34.3 L, MCV 93.0, MCH 32.2 H, MCHC 34.7, RDW 13.6, Plt Count 228, MPV 9.3, Neut % (Auto) 51.4, Lymph % (Auto) 33.0, [place] % (Auto) 13.6 H, Eos % (Auto) 1.0, Baso % (Auto) 0.4, Neut # (Auto) 4.7, Lymph # (Auto) 3.0, [place] # (Auto) 1.2 H, Eos # (Auto) 0.1, Baso # (Auto) 0.0, D-Dimer 0.94 H, Sodium 130 L, Potassium 4.4, Chloride 92 L, Carbon Dioxide 21 L, Anion Gap 21.4 H, BUN 15, Creatinine 0.70, Estimated Creat Clear 57, Estimated GFR 82, Est GFR ( Amer) 100, Glucose 305 H, Calcium 10.0, Total Bilirubin 0.5, AST 23, ALT 10 L, Alkaline Phosphatase 130 H, Troponin I < 0.01, Total Protein 7.4, Albumin 4.4, Globulin 3.0, Albumin/Globulin Ratio 1.5, Plasma/Serum Alcohol 218 H, Acetone Level None detected, HCV Ab ABRIL w/Rflx PCR Qn Negative 11/05/24 22:30: Urine Color Yellow, Urine Appearance Clear, Urine pH 6.0, Ur Specific [place] <= 1.005, Urine Protein Negative, Urine Glucose (UA) 3+, Urine Ketones Negative, Urine Blood Trace-i, Urine Nitrate Negative, Urine Bilirubin Negative, Urine Urobilinogen 0.2, Ur Leukocyte Esterase Negative, Urine WBC Occasional, Ur Squamous Epith Cells 3-5, Urine Bacteria Trace, Urine Opiates Screen Negative, Urine Methadone Screen Negative, Ur Barbituates Screen Negative, Ur Phencyclidine Scrn Negative, Ur Amphetamines Screen Negative, U Benzodiazepines Scrn Negative, Urine Cocaine Screen Negative, U Marijuana (THC) Screen Positive H 11/06/24 00:06: VBG pH 7.36, VBG pCO2 41.3, VBG pO2 72.4 H, VBG HCO3 22.6 L, VBG Total CO2 23.9, VBG O2 Saturation 92.5 H, VBG Base Excess -2.9 L, VBG Lactic Acid 1.8 11/06/24 00:50: Troponin I < 0.01 11/05/24 22:10 11/05/24 22:10 Response Orders (Tests/Meds): ED MEDICATIONS Discontinued Medications Generic Name Dose Route Start Last Admin Trade Name Shaneq PRN Reason Stop Dose Admin Iopamidol 70 ml 11/05/24 23:46 11/05/24 23:47 Iopamidol-370 (76%);100ml Bottle IV 11/05/24 23:47 70 ml ONCE ONE Administration Sodium Chloride 50 ml 11/05/24 23:46 11/05/24 23:47 0.9 % Sodium Chloride 50 Ml Vial IV 11/05/24 23:47 50 ml ONCE ONE Administration Sodium Chloride 10 ml 11/05/24 23:46 11/05/24 23:47 Sodium Chloride 0.9% 10ml Syr (Rad Only) IV 11/05/24 23:47 10 ml ONCE ONE Administration ORDERS Category Date Time Status CT angio chest PE protocol Stat Cat Scan 11/05/24 23:24 Completed CXR --portable [XR chest portable] Stat Exams 11/05/24 22:43 Completed Acetone, Serum (Rapid) Stat Lab 11/05/24 22:10 Completed Complete Blood Count Auto Diff Stat Lab 11/05/24 22:10 Completed Comprehensive Metabolic Panel Stat Lab 11/05/24 22:10 Completed D-Dimer Stat Lab 11/05/24 22:10 Completed Ethyl Alcohol Stat Lab 11/05/24 22:10 Completed HIV Combo Stat Lab 11/05/24 22:10 Received Hepatitis C Ab Qual. W/ RFX Stat Lab 11/05/24 22:10 Completed Trop I [Troponin I] Stat Lab 11/05/24 22:10 Completed Troponin I Q3H Lab 11/06/24 00:50 Completed Troponin I Q3H Lab 11/06/24 04:45 Ordered UA [Urinalysis and Microscopic] Stat Lab 11/05/24 22:30 Completed UDS [Drug Screen,Urine] Stat Lab 11/05/24 22:30 Completed VBG [Venous Blood Gas] Stat RT 11/06/24 00:06 Completed ECG Data Tracing #1: Attestation: I reviewed this ECG and interpreted as documented below: ECG Narrative: Sinus rhythm with a ventricular rate of [address] changes concerning for STEMI. Normal intervals ECG initial impression date: 11/05/24 ECG initial impression time: 22:16 MDM Narrative Medical Decision Narrative: In summary, this patient is a 74-year-old female presenting to the Emergency Department for evaluation of chest pains that started 4 hours prior to arrival but have since resolved. Differential diagnoses considered include but are not limited to ACS, dysrhythmia, PE, pleurisy, costochondritis, GERD, anxiety. Ruling out the most morbid conditions drove assessment. It should be noted patient's history includes hypertension, hyperlipidemia, diabetes, alcohol use, marijuana use which may or may not be at goal therapy. This complicates all aspects of care by increasing patient's risk for morbidity. I reviewed patient's past medical records and noted prior evaluation back in June for rib fracture. On exam, the patient is sitting upright in no acute distress. She is well-appearing with normal vitals and has no concerns or complaints, stating that she feels fine now. Her pain is resolved. Workup included CBC, CMP, troponin, D-dimer, chest x-ray, EKG. I independently interpreted chest x-ray prior to the radiologist read and noted no large focal consolidation concerning for pneumonia, no pneumothorax. Please see their read for final interpretation. Labs were obtained that demonstrated mild anemia, chemistry demonstrates mild hyponatremia, mildly elevated anion gap, mild hyperglycemia. Added on VBG, acetone, lactate, ethanol level, urinalysis, urine drug screen. She clinically does not look like a DKA patient, as she looks good and has no concerns or complaints with reassuring vitals. D-dimer came back elevated with a negative troponin. I added on a CTA PE protocol for elevated D-dimer. Patient care was signed out to the oncoming provider, Dr. Brody, pending CTA and the remainder of labs added on as above. <Taj Brody MD - Last Filed: 11/06/24 01:39> Vital Signs Vital Signs: 11/05/24 22:18 11/05/24 23:01 11/05/24 23:01 Temperature 98.7 F Temperature Source Oral Pulse Rate 63 Pulse Rate [Left] 82 Respiratory Rate 14 14 Blood Pressure 103/63 L Blood Pressure [Right Arm] 141/83 H Blood Pressure Mean 76 Blood Pressure Mean [Right Arm] 102 Blood Pressure Source [Right Arm] Automatic Cuff Blood Pressure Position [Right Arm] Sitting 02 Sat by Pulse Oximetry 98 96 Oxygen Delivery Method Room Air 11/05/24 23:30 11/05/24 23:30 11/06/24 00:00 Temperature Temperature Source Pulse Rate 72 69 Pulse Rate [Left] Respiratory Rate 21 14 Blood Pressure 97/66 L 108/59 L Blood Pressure [Right Arm] Blood Pressure Mean 75 Blood Pressure Mean [Right Arm] Blood Pressure Source [Right Arm] Blood Pressure Position [Right Arm] 02 Sat by Pulse Oximetry 97 96 Oxygen Delivery Method Lab Data Labs: Lab Results 11/05/24 22:10: WBC 9.1, RBC 3.69 L, Hgb 11.9 L, Hct 34.3 L, MCV 93.0, MCH 32.2 H, MCHC 34.7, RDW 13.6, Plt Count 228, MPV 9.3, Neut % (Auto) 51.4, Lymph % (Auto) 33.0, [place] % (Auto) 13.6 H, Eos % (Auto) 1.0, Baso % (Auto) 0.4, Neut # (Auto) 4.7, Lymph # (Auto) 3.0, [place] # (Auto) 1.2 H, Eos # (Auto) 0.1, Baso # (Auto) 0.0, D-Dimer 0.94 H, Sodium 130 L, Potassium 4.4, Chloride 92 L, Carbon Dioxide 21 L, Anion Gap 21.4 H, BUN 15, Creatinine 0.70, Estimated Creat Clear 57, Estimated GFR 82, Est GFR ( Amer) 100, Glucose 305 H, Calcium 10.0, Total Bilirubin 0.5, AST 23, ALT 10 L, Alkaline Phosphatase 130 H, Troponin I < 0.01, Total Protein 7.4, Albumin 4.4, Globulin 3.0, Albumin/Globulin Ratio 1.5, Plasma/Serum Alcohol 218 H, Acetone Level None detected, HCV Ab ABRIL w/Rflx PCR Qn Negative 11/05/24 22:30: Urine Color Yellow, Urine Appearance Clear, Urine pH 6.0, Ur Specific [place] <= 1.005, Urine Protein Negative, Urine Glucose (UA) 3+, Urine Ketones Negative, Urine Blood Trace-i, Urine Nitrate Negative, Urine Bilirubin Negative, Urine Urobilinogen 0.2, Ur Leukocyte Esterase Negative, Urine WBC Occasional, Ur Squamous Epith Cells 3-5, Urine Bacteria Trace, Urine Opiates Screen Negative, Urine Methadone Screen Negative, Ur Barbituates Screen Negative, Ur Phencyclidine Scrn Negative, Ur Amphetamines Screen Negative, U Benzodiazepines Scrn Negative, Urine Cocaine Screen Negative, U Marijuana (THC) Screen Positive H 11/06/24 00:06: VBG pH 7.36, VBG pCO2 41.3, VBG pO2 72.4 H, VBG HCO3 22.6 L, VBG Total CO2 23.9, VBG O2 Saturation 92.5 H, VBG Base Excess -2.9 L, VBG Lactic Acid 1.8 11/06/24 00:50: Troponin I < 0.01 Response Orders (Tests/Meds): ED MEDICATIONS Discontinued Medications Generic Name Dose Route Start Last Admin Trade Name Shaneq PRN Reason Stop Dose Admin Iopamidol 70 ml 11/05/24 23:46 11/05/24 23:47 Iopamidol-370 (76%);100ml Bottle IV 11/05/24 23:47 70 ml ONCE ONE Administration Sodium Chloride 50 ml 11/05/24 23:46 11/05/24 23:47 0.9 % Sodium Chloride 50 Ml Vial IV 11/05/24 23:47 50 ml ONCE ONE Administration Sodium Chloride 10 ml 11/05/24 23:46 11/05/24 23:47 Sodium Chloride 0.9% 10ml Syr (Rad Only) IV 11/05/24 23:47 10 ml ONCE ONE Administration ORDERS Category Date Time Status CT angio chest PE protocol Stat Cat Scan 11/05/24 23:24 Completed CXR --portable [XR chest portable] Stat Exams 11/05/24 22:43 Completed Acetone, Serum (Rapid) Stat Lab 11/05/24 22:10 Completed Complete Blood Count Auto Diff Stat Lab 11/05/24 22:10 Completed Comprehensive Metabolic Panel Stat Lab 11/05/24 22:10 Completed D-Dimer Stat Lab 11/05/24 22:10 Completed Ethyl Alcohol Stat Lab 11/05/24 22:10 Completed HIV Combo Stat Lab 11/05/24 22:10 Received Hepatitis C Ab Qual. W/ RFX Stat Lab 11/05/24 22:10 Completed Trop I [Troponin I] Stat Lab 11/05/24 22:10 Completed Troponin I Q3H Lab 11/06/24 00:50 Completed Troponin I Q3H Lab 11/06/24 04:45 Ordered UA [Urinalysis and Microscopic] Stat Lab 11/05/24 22:30 Completed UDS [Drug Screen,Urine] Stat Lab 11/05/24 22:30 Completed VBG [Venous Blood Gas] Stat RT 11/06/24 00:06 Completed MDM Narrative Medical Decision Narrative: In summary, this patient is a 74-year-old female presenting to the Emergency Department for evaluation of chest pains that started 4 hours prior to arrival but have since resolved. Differential diagnoses considered include but are not limited to ACS, dysrhythmia, PE, pleurisy, costochondritis, GERD, anxiety. Ruling out the most morbid conditions drove assessment. It should be noted patient's history includes hypertension, hyperlipidemia, diabetes, alcohol use, marijuana use which may or may not be at goal therapy. This complicates all aspects of care by increasing patient's risk for morbidity. I reviewed patient's past medical records and noted prior evaluation back in June for rib fracture. On exam, the patient is sitting upright in no acute distress. She is well-appearing with normal vitals and has no concerns or complaints, stating that she feels fine now. Her pain is resolved. Workup included CBC, CMP, troponin, D-dimer, chest x-ray, EKG. I independently interpreted chest x-ray prior to the radiologist read and noted no large focal consolidation concerning for pneumonia, no pneumothorax. Please see their read for final interpretation. Labs were obtained that demonstrated mild anemia, chemistry demonstrates mild hyponatremia, mildly elevated anion gap, mild hyperglycemia. Added on VBG, acetone, lactate, ethanol level, urinalysis, urine drug screen. She clinically does not look like a DKA patient, as she looks good and has no concerns or complaints with reassuring vitals. D-dimer came back elevated with a negative troponin. I added on a CTA PE protocol for elevated D-dimer. Patient care was signed out to the oncoming provider, Dr. Brody, pending CTA and the remainder of labs added on as above. Brody: Upon my assumption of care patient is stable and resting comfortably. On my assessment her lungs are clear and she is moving good air. She reports no chest pain. I agree with the assessment and plan from Dr. Lynn. I also reviewed labs demonstrating mild anemia, elevated D-dimer has been addressed with CTA PE which I personally interpreted and does not demonstrate large PE, there may be some slight infectious changes however these do not correlate clinically and the radiology read mentions that could be pneumonitis which is more consistent with the patient's history. See read for full interpretation. No antibiotics administered. VBG with normal pH, normal lactic, no ketones in the urine, I am not concerned that the anion gap is from DKA and believe it is more likely related to the patient's alcohol abuse. She does have mild hyponatremia but this is not acutely actionable at this time. I recommended she follow this up with her primary care doctor. Repeat troponin is also undetectably low less than 0.01, no change in her troponin. UA negative for findings of infection, UDS positive for THC to which she admits, EtOH elevated at 218 which is a known chronic problem for the patient. On further reassessment she continues to rest comfortably, she is pain-free, lungs clear bilaterally saturating well on room air. She is clinically sober. Alert, oriented, insight into her condition, ambulatory, tolerating oral intake she is appropriate for discharge at this time. I recommended the patient stop using all illicit substances including marijuana and alcohol to improve her overall health. I gave her instructions for close follow-up with her primary care doctor to address the chronic problems and for reassessment. I sent a referral to her PCP listed in the chart with comments regarding these concerns. I also recommended close follow-up with her member services representative who she states is at [facility]. She and family at bedside indicated understanding to all instructions and the patient was discharged in stable condition.
[2024-11-05] MEDS: 0.9 % SODIUM CHLORIDE 50 ML VIAL IV (23:47)
[2024-11-05] MEDS: SODIUM CHLORIDE 0.9% 10ML SYR (RAD ONLY) 10 ML IV (23:47)
[2024-11-05] MEDS: IOPAMIDOL-370 (76%);100ML BOTTLE 70 ML IV (23:47)
[2024-11-05 23:55] LABS: Microscopic, Urine URINE MICROSCOPIC (MICROSCOPIC)
[2024-11-05 23:58] LABS: Bilirubin,Urine Negative (Negative); Color,Urine YELLOW (Yellow); Glucose,Urine (UA) 3+ (Negative); Ketones,Urine Negative (Negative); Leukocyte Esterase,Urine Negative (Negative); PH,Urine 6.0 (5.0-8.5); Protein,Urine Negative (Negative); Specific Gravity, Urine <= 1.005 (1.005-1.030); Urobilinogen,Urine 0.2 EU/dl (0.2)
[2024-11-06] VITALS: BP 108/59; PULSE 69; RESP 14; O2SAT 96
[2024-11-06 00:03] LABS: Acetone, Serum (Rapid) None Detected (None Detect)
[2024-11-06 00:10] LABS: Amphetamine/Metha Screen,Urine Negative ng/ml (<1000)
[2024-11-06 00:11] LABS: Barbiturates Screen,Urine Negative ng/ml (<200); Benzodiazepines Screen,Urine Negative ng/ml (<200)
[2024-11-06 00:13] LABS: Methadone Screen,Urine Negative ng/ml (<300)
[2024-11-06 00:14] LABS: Opiate Screen,Urine Negative ng/ml (<300); Phencyclidine Screen,Urine Negative ng/ml (<25)
[2024-11-06 00:16] LABS: Lactate Venous 1.8 mmol/L (0.4-2.0); VBG HCO3 22.6 mmol/L (23-30); VBG PCO2 41.3 mmol/L (35-51); VBG PH 7.36 mmol/L (7.31-7.41); VBG PO2 72.4 mmol/L (28-40)
[2024-11-06 00:29] LABS: Bacteria,Urine Trace /lpf; WBC,Urine Occasional #/hpf (0-3)
[2024-11-06 01:24] LABS: Troponin I < 0.01 ng/ml (0.00-0.034)
[2024-11-06 01:40] VITALS: BP 108/59; PULSE 69; RESP 16; TEMP 37.1; O2SAT 96
== END 2024-11-06 01:40 | disposition home or self-care (01) ==
PROVIDERS: Emergency Provider Emergency Medicine; PCP Internal Medicine
DX: R07.9 Chest pain, unspecified (principal); R06.02 Shortness of breath; F10.129 Alcohol abuse with intoxication, unspecified; E87.1 Hypo-osmolality and hyponatremia; I10 Essential (primary) hypertension; E78.5 Hyperlipidemia, unspecified; E11.65 Type 2 diabetes mellitus with hyperglycemia; F17.210 Nicotine dependence, cigarettes, uncomplicated; Y90.7 Blood alcohol level of 200-239 mg/100 ml; Z79.4 Long term (current) use of insulin; F12.90 Cannabis use, unspecified, uncomplicated
CPT/HCPCS: 71045; 71275; 80053; 80307; 80320; 81001; 82009; 82803; 84484; 85025; 85378; 86803; 87389; 93005; 99285; Q9967